=== PATIENT | female | born 1965 | race Caucasian/White ===

== ENCOUNTER 2017-09-30 12:24 | Emergency (ER) | payer MEDICAID ==
[2017-09-30 13:11] LABS: #Basophils 0.1 thou/uL (0.0-0.2); #Eosinphils 0.3 thou/uL (0.0-0.7); #Lymphocytes 1.7 thou/uL (1.20-3.40); #Monocytes 0.8 thou/uL (0.11-0.59); #Neutrophils 5.1 thou/uL (1.40-6.50); %Basophils 0.8 % (0.0-1.0); %Eosinophils 3.5 % (0.0-10.0); %Lymphocytes 21.5 % (21.0-51.0); %Monocytes 9.6 % (0.0-10.0); %Neutrophils 64.7 % (42.0-75.0); Hemoglobin 11.8 g/dL (12.0-16.0); Mean Corpuscular HGB CONC 31.8 g/dL (32.0-36.0); Mean Corpuscular Volume 84.9 fl (81.0-99.0); Mean Platelet Volume 7.5 fL (7.4-10.4); Platelet Count 239 thou/uL (130-400); RBC Distribution Width 15.9 % (11.5-14.5); Red Blood Cell (RBC) Count 4.37 mill/uL (4.20-5.40); White Blood Cell (WBC) Count 7.9 thou/uL (4.8-10.8)
[2017-09-30 13:39] LABS: CKMB 0.5 ng/mL (0-6.6); Troponin I Less than 0.010 ng/mL (< 0.028)
[2017-09-30 13:42] LABS: ALT (SGPT) 24 U/L (8-55); AST (SGOT) 24 U/L (5-34); Albumin 3.9 g/dL (3.5-5.0); Alkaline Phosphatase 98 U/L (40-150); Anion Gap 12 mmol/L (10-20); BUN (Urea Nitrogen) 18 mg/dL (9.8-20.1); Bilirubin, Total 0.4 mg/dL (0.2-1.2); CK (CPK) 39 U/L (29-168); Calc. Creatinine Clearance 0 mL/min (70-130); Calcium 9.7 mg/dL (7.8-10.44); Carbon Dioxide 23 mmol/L (22-29); Chloride 107 mmol/L (98-107); Estimated GFR-MDRD 85; Globulin 3.7 g/dL (2.4-3.5); Glucose 111 mg/dL (70-105); Potassium 4.3 mmol/L (3.5-5.1); Protein, Total 7.6 g/dL (6.0-8.3); Sodium 138 mmol/L (136-145)
[2017-09-30] MEDS ORDERED: Furosemide 20 MG/2 ML VIAL ONE (13:48)
--- NOTE | 2017-09-30 14:01 | RAD ---
ONE VIEW CHEST: HISTORY: Shortness of breath. Cough. COMPARISON: None. FINDINGS: Enlarged cardiac silhouette. The pulmonary vessels are upper limits of normal. Costophrenic angles are clear. No masses or consolidation. No pneumothorax or osseous abnormalities. IMPRESSION: Cardiomegaly. Mild pulmonary vascular prominence. Correlate for congestive heart failure. POS: [facility]
== END 2017-09-30 16:08 | disposition home or self-care (01) ==
LOC: ERS 12:24
DX: I11.0 Hypertensive heart disease with heart failure (principal); I50.9 Heart failure, unspecified; E78.5 Hyperlipidemia, unspecified; E66.9 Obesity, unspecified; F31.9 Bipolar disorder, unspecified; F41.9 Anxiety disorder, unspecified; F43.10 Post-traumatic stress disorder, unspecified; J45.909 Unspecified asthma, uncomplicated; Z79.899 Other long term (current) drug therapy
CPT/HCPCS: 36415; 71045; 80053; 82550; 82553; 84484; 85025; 93005; 96372; J1940

== ENCOUNTER 2017-10-30 12:31 | Observation (INO) | payer MEDICAID ==
[2017-10-30 13:28] LABS: #Eosinphils 0.2 thou/uL (0.0-0.7); #Lymphocytes 1.2 thou/uL (1.20-3.40); #Monocytes 0.8 thou/uL (0.11-0.59); #Neutrophils 5.3 thou/uL (1.40-6.50); %Basophils 0.2 % (0.0-1.0); %Eosinophils 3.1 % (0.0-10.0); %Lymphocytes 15.7 % (21.0-51.0); %Monocytes 10.4 % (0.0-10.0); %Neutrophils 70.7 % (42.0-75.0); Hemoglobin 12.2 g/dL (12.0-16.0); Mean Corpuscular HGB CONC 31.5 g/dL (32.0-36.0); Mean Corpuscular Hemoglobin 26.6 pg (27.0-31.0); Mean Corpuscular Volume 84.3 fL (78.0-98.0); Mean Platelet Volume 7.9 fL (7.4-10.4); Platelet Count 226 thou/uL (130-400); Red Blood Cell (RBC) Count 4.58 mill/uL (4.20-5.40); White Blood Cell (WBC) Count 7.5 thou/uL (4.8-10.8)
[2017-10-30 13:30] LABS: INR-International Normal Ratio 1.1; PTT 25.2 SEC (22.9-36.1); Prothrombin Time 13.8 SEC (12.0-14.7)
[2017-10-30 13:40] LABS: ALT (SGPT) 18 U/L (8-55); AST (SGOT) 20 U/L (5-34); Alkaline Phosphatase 104 U/L (40-150); Anion Gap 13 mmol/L (10-20); BUN (Urea Nitrogen) 12 mg/dL (9.8-20.1); Bilirubin, Total 0.5 mg/dL (0.2-1.2); CK (CPK) 33 U/L (29-168); Calc. Creatinine Clearance 0 mL/min (70-130); Calcium 9.8 mg/dL (7.8-10.44); Carbon Dioxide 25 mmol/L (22-29); Chloride 106 mmol/L (98-107); Estimated GFR-MDRD 85; Globulin 3.8 g/dL (2.4-3.5); Glucose 103 mg/dL (70-105); Potassium 3.6 mmol/L (3.5-5.1); Protein, Total 7.8 g/dL (6.0-8.3); Sodium 140 mmol/L (136-145)
[2017-10-30 13:42] LABS: CKMB 0.4 ng/mL (0-6.6); Troponin I Less than 0.010 ng/mL (< 0.028)
--- NOTE | 2017-10-30 13:53 | RAD ---
CHEST PA AND LATERAL: Date: 10/30/17 HISTORY: 52-year-old female with history of chest pain and shortness of breath. COMPARISON: 09/30/17. FINDINGS: Cardiomegaly with mild vascular congestion, without overt edema or pleural effusion. No confluent pne umonia. Minimal bilateral pleural thickening. IMPRESSION: Overall stable appearing mild cardiomegaly and vascular congestion without overt edema or pleural eff usion. POS: [facility]
[2017-10-30] MEDS ORDERED: Nitroglycerin 0.4 MG TAB (25 Tab Bottle) ONE (13:57)
[2017-10-30] MEDS ORDERED: hydrALAZINE 20 MG/ML VIAL ONE (15:30)
[2017-10-30] MEDS ORDERED: Nitroglycerin 0.4 MG TAB (25 Tab Bottle) SL PRN (15:38)
[2017-10-30] MEDS ORDERED: hydrALAZINE 20 MG/ML VIAL SLOW IVP PRN (15:38)
[2017-10-30] MEDS ORDERED: Milk Of Magnesia 30 ML UDCUP PO PRN (15:40)
[2017-10-30] MEDS ORDERED: Labetalol HCl 100 MG/20 ML VIAL SLOW IVP PRN (15:42)
[2017-10-30] MEDS ORDERED: Furosemide 40 MG/4 ML VIAL SLOW IVP SCH (16:00)
--- NOTE | 2017-10-30 16:13 | HP ---
PRIMARY CARE PHYSICIAN: None. PRESENTING COMPLAINT: Chest pain. HISTORY OF PRESENT ILLNESS: Ms. Rose Spencer is a 52-year-old female with a past medical history of CHF, hypertension, hyperlipidemia, and obesity, who presents to the emergency room with complaints of chest pain. She reports intermittent chest pain for the past week, described as pressure and sha rp pain that is retrosternal, 8/10, does not radiate, and does not have any clear aggravating or reli eving factors. Pain occurs at rest. She denies previous episodes in the past. She reports is not a ssociated with diaphoresis, nausea or vomiting, but reports some shortness of breath. There is no hi story of abdominal or urinary symptoms. Her last stress test she reports was several years ago and w as normal. She has never had a cardiac catheterization. At the emergency room, she was given 2 dose s of nitroglycerin, aspirin and one dose of IV hydralazine due to systolic blood pressure in the 200. PAST MEDICAL HISTORY: As in the HPI. PAST SURGICAL HISTORY: History of , BTL and sinus surgery. FAMILY HISTORY: Her mother had a myocardial infarction in her 50s and also had a CVA. SOCIAL HISTORY: She does not smoke cigarettes, drink alcohol or use illicit drugs. ALLERGIES: ALBUTEROL and, BIAXIN. HOME MEDICATIONS: Reviewed. PRIMARY CARE PHYSICIAN: None. REVIEW OF SYSTEMS: All systems reviewed were negative except as stated in HPI. Of note, patient reports she did not take her blood pressure medications today. PHYSICAL EXAMINATION: VITAL SIGNS: Blood pressure 200/100. Other vital signs within normal limits. GENERAL: Not in acute distress. The patient reports being chest pain free and lying comfortably in bed. HEENT: Normocephalic, atraumatic. Not pale, anicteric. Moist mucous membrane. PERRLA. NECK: Supple, full range of movement. No JVD. CARDIOVASCULAR: S1 and S2 only. Regular rate and rhythm. No murmurs, rubs or gallops. RESPIRATORY: Vesicular breath sounds bilaterally. No wheezes or rales. ABDOMEN: Obese, not tender, not distended. Bowel sounds normoactive. MUSCULOSKELETAL: 1+ bilateral lower extremity pitting edema. NEUROLOGIC: Alert and well oriented to time, place and person. No focal deficits. SKIN: Warm, dry, well-perfused. No rashes or lesions. LABORATORY DATA: CBC is within normal limits. CMP as well. Initial troponin was less than 0.010. INR 1.1. Chest x-ray showed no abnormalities acutely, but shows stable vascular congestion. EKG mouna ws no signs of acute ischemia. ASSESSMENT AND PLAN: 1. Hypertensive urgency. 2. Unstable angina. 3. Congestive heart failure with unknown ejection fraction. 4. Hyperlipidemia. 5. Morbid obesity. Patient has been admitted for unstable angina and hypertensive urgency. She rep orts not taken her blood pressure medication today and has not taken her diuretics for the past 3 day s. She recently moved to the [facility] and does not have a primary care physician or follow up with the pourer off. We will admit to the telemetry floor on observation, monitor her vital sig ns, give her IV hydralazine and labetalol p.r.n. for elevated blood pressure. Her chest pain has bee n relieved by nitroglycerin so far, but we will put an order for sublingual nitroglycerin p.r.n. as w ell as IV morphine p.r.n. for chest pain. She would likely require a stress test to completely rule out acute coronary syndrome, but due to her hypertensive urgency, this test will be held off for now. We will consult Cardiology since she definitely needs to follow up with the pourer off sooner rat her than later. We will consider an echocardiogram as well. Home medications will be restarted. We will also obtain a fasting lipid profile. Troponin will be trended as well. CODE STATUS: FULL CODE. Deep venous thrombosis prophylaxis with subcutaneous heparin.
[2017-10-30] MEDS ORDERED: Carvedilol 6.25 MG TAB PO SCH (16:15)
[2017-10-30] MEDS ORDERED: NIFEdipine XL 60 MG TAB PO SCH (16:15)
[2017-10-30 16:29] LABS: Troponin I Less than 0.010 ng/mL (< 0.028)
[2017-10-30 16:35] VITALS: BMI 71.0
[2017-10-30 19:40] LABS: Troponin I Less than 0.010 ng/mL (< 0.028)
[2017-10-30] MEDS: Docusate 100 MG CAP PO SCH (20:14)
[2017-10-30] MEDS ORDERED: Rivaroxaban 10 MG TAB PO SCH (21:45)
[2017-10-30] MEDS ORDERED: Aripiprazole 15 MG TAB PO SCH (21:45)
[2017-10-30] MEDS ORDERED: Montelukast Sodium 10 mg Tablet PO SCH (21:45)
[2017-10-30] MEDS ORDERED: OXcarbazepine 300 MG TAB PO SCH (23:45)
[2017-10-30] MEDS ORDERED: Loratadine 10 MG TAB PO SCH (23:45)
[2017-10-30] MEDS ORDERED: Gabapentin 400 MG CAP PO SCH (23:45)
[2017-10-30] MEDS ORDERED: Atorvastatin Calcium 40 MG TAB PO SCH (23:45)
[2017-10-31 04:58] LABS: #Eosinphils 0.3 thou/uL (0.0-0.7); #Lymphocytes 1.7 thou/uL (1.20-3.40); #Monocytes 0.8 thou/uL (0.11-0.59); #Neutrophils 5.4 thou/uL (1.40-6.50); %Basophils 0.2 % (0.0-1.0); %Eosinophils 3.4 % (0.0-10.0); %Lymphocytes 20.6 % (21.0-51.0); %Monocytes 9.9 % (0.0-10.0); %Neutrophils 65.9 % (42.0-75.0); Hemoglobin 11.1 g/dL (12.0-16.0); Mean Corpuscular HGB CONC 32.1 g/dL (32.0-36.0); Mean Corpuscular Hemoglobin 26.7 pg (27.0-31.0); Mean Corpuscular Volume 83.2 fL (78.0-98.0); Mean Platelet Volume 7.4 fL (7.4-10.4); Platelet Count 239 thou/uL (130-400); RBC Distribution Width 16.1 % (11.5-14.5); Red Blood Cell (RBC) Count 4.18 mill/uL (4.20-5.40); White Blood Cell (WBC) Count 8.2 thou/uL (4.8-10.8)
[2017-10-31 05:16] LABS: Anion Gap 11 mmol/L (10-20); BUN (Urea Nitrogen) 12 mg/dL (9.8-20.1); Calc. Creatinine Clearance 306 mL/min (70-130); Calcium 9.6 mg/dL (7.8-10.44); Carbon Dioxide 28 mmol/L (22-29); Cardiac Risk 3.6 (Less than 4.5); Chloride 105 mmol/L (98-107); Cholesterol 116 mg/dl (< 200 Desired); Estimated GFR-MDRD Greater than 90; Glucose 114 mg/dL (70-105); HDL Cholesterol 32 mg/dL (>60 Neg Risk); LDL Cholesterol, Calculated 67 mg/dL; Potassium 3.7 mmol/L (3.5-5.1); Sodium 140 mmol/L (136-145); Triglycerides 85 mg/dL (Less than 150)
[2017-10-31] MEDS ORDERED: Carvedilol 6.25 MG TAB PO SCH (08:00)
--- NOTE | 2017-10-31 08:04 | CON ---
DATE OF CONSULTATION: 10/30/2017 REASON FOR CONSULTATION: Chest pain in the setting of severe morbid obesity. HISTORY OF PRESENT ILLNESS: Ms. Spencer is a 52-year-old woman. She came "to get checked out." She s aid she has been having chest pain in the lower substernal area that is the area she pointed, it is l asted for a few seconds and then resolves. It does not radiate. It occurs at rest, but she is unabl e to really exert herself much due to her body size. The patient was given nitroglycerin, aspirin, a nd hydralazine as her blood pressure was high in the emergency room. PAST MEDICAL HISTORY: 1. Severe morbid obesity. 2. History of section. FAMILY HISTORY: Mother with myocardial infarction. SOCIAL HISTORY: No smoking. ALLERGIES: ALBUTEROL and BIAXIN. HOME MEDICATIONS: Reviewed. PRIMARY CARE PHYSICIAN: None. She said she is going to be getting one to set soon. REVIEW OF SYSTEMS: Constitutional: Gradual weight gain. Vision: No changes. Hearing: No changes . Pulmonary: No cough or wheezing. Gastrointestinal: No nausea, vomiting, diarrhea. Skin: No ra shes. Neurologic: No unilateral weakness or numbness. Psychiatric: No unusual depression or anxie ty. PHYSICAL EXAMINATION: GENERAL: An extremely obese patient, 5 foot 6 inches tall, 440 pounds. BMI is 71. HEENT: Eyes, sclerae nonicteric. Mouth mucous membranes moist. NECK: Supple. No lymphadenopathy. LUNGS: Clear. No wheezing, rales or rhonchi. CARDIAC: Normal S1, normal S2. There is no murmur, rub or gallop. ABDOMEN: Morbidly obese. EXTREMITIES: There is chronic lymphedema. I do not feel pedal pulses, but it is difficult to tell b ecause of her obesity. She does have radial pulses. Laboratory reveals negative cardiac enzymes. EKG did not show any acute changes. ASSESSMENT: 1. Severe morbid obesity with BMI is over 70, 5 foot, 6 inches tall, 440 pounds. 2. Chest pain, very difficult to tell if there is any cardiac component. Certainly, the morbid obes ity is a major risk factor. Discussed with the patient that unfortunately, her body size will prohibit stress testing. She weigh s too much for the nuclear medicine imaging protocol and she would be unable to do a treadmill. She is able to get around some degree with a walker, but otherwise is not active. We will do an echocard iogram and treat blood pressure also looking at the home medicines. She is on Xarelto, nifedipine, S ingulair, carvedilol. We will add Protonix if symptoms persist the only really way to adequately patrick luate the coronary arteries will be cardiac catheterization.
[2017-10-31] MEDS ORDERED: Enoxaparin Sodium 40 MG/0.4 ML SYRINGE SC SCH (09:00)
[2017-10-31] MEDS ORDERED: Aspirin 325 MG TAB PO SCH (09:00)
[2017-10-31] MEDS ORDERED: NIFEdipine XL 60 MG TAB PO SCH (09:00)
[2017-10-31] MEDS ORDERED: Furosemide 80 MG TAB PO SCH (09:00)
[2017-10-31] MEDS ORDERED: Gabapentin 400 MG CAP PO SCH ×2 (09:00→21:00)
[2017-10-31] MEDS ORDERED: OXcarbazepine 300 MG TAB PO SCH (09:00)
[2017-10-31] MEDS ORDERED: Aripiprazole 15 MG TAB PO SCH (09:00)
[2017-10-31] MEDS: Docusate 100 MG CAP PO SCH (09:34)
[2017-10-31] MEDS: Gabapentin 400 MG CAP PO SCH ×2 (09:35→17:19)
[2017-10-31 10:02] LABS: Hemoglobin 11.7 g/dL (12.0-16.0); Platelet Count 238 thou/uL (130-400)
[2017-10-31 12:31] VITALS: BP 157/82; TEMP 98.6
--- NOTE | 2017-10-31 14:10 | PRG ---
DATE OF SERVICE: 10/31/2017 SUBJECTIVE: Ms. Spencer is not having further chest pain. OBJECTIVE: VITAL SIGNS: Blood pressure 157/82, pulse 70. LUNGS: Clear. CARDIAC: Normal S1, S2. ABDOMEN: Obese, nontender. EXTREMITIES: Edema as before, mostly lymphedema. PERTINENT LABORATORY DATA: All the troponin levels were negative. EKG did not show ischemia. Adela sterol LDL 67. Echocardiogram showed normal left ventricular function, trace tricuspid insufficiency. Essentially n ormal echocardiogram. There is mild left atrial enlargement as would be expected with this degree of obesity. Unfortunately, due to the patient's weight, there is not a mechanism available here to do stress test ing and cardiac catheterization would not be indicated at this point with chest pain, which was somew hat atypical. Negative cardiac enzymes and normal wall motion and no EKG changes. At this time, the patient's pain is unlikely to be cardiac, but certainly we cannot tell her for sure it is not, recom mended very important for her to try to lose weight. She said she may be interested in bariatric lise chriss if she decides that she wishes to pursue bariatric surgery and the best option may be cardiac ca theterization to make sure she does not have coronary disease. It is very important for her to try to lose weight for her health. She has already had pulmonary emb olism, which is largely related to her obesity and venous insufficiency and venous congestion. I sera pect due to obesity, she also has severe hypertension, which is certainly worsened by this level of o besity, sleep apnea from the obesity and has some glucose intolerance. Long-term prognosis is poor u nless she loses substantial amount of weight.
[2017-10-31] MEDS ORDERED: Rivaroxaban 10 MG TAB PO SCH (17:00)
--- NOTE | 2017-10-31 18:45 | DIS ---
DATE OF ADMISSION: 10/30/2017 DATE OF DISCHARGE: 10/31/2017 HISTORY OF PRESENT ILLNESS/HOSPITAL COURSE: Ms. Rose Spencer is a 52-year-old female with a histo ry of congestive heart failure, hypertension, hyperlipidemia, and obesity, who presented to the emerg ency room with chest pain, which started at rest. She reports this has been intermittent for the pas t week, described as a pressure-like pain, which is at times retrosternal, intermittent and radiates does not radiate and does not have any clear aggravating or relieving factors. She denies previous e pisodes. She does not have any shortness of breath, diaphoresis, nausea or vomiting. No abnormal ur inary symptoms. She had a stress test done several years ago, which she reported that was normal and no previous cardiac catheterization. At the emergency room, she was given 2 doses of nitroglycerin, aspirin and one dose of IV hydralazine due to her systolic blood pressure being in the 200s. Physic al examination was only significant for morbid obesity. Her blood pressure was 200 about 100. Her l abs are unremarkable. Troponin was trended and negative. She had a chest x-ray done, which showed s table vascular congestion, diagnosis of hypertensive urgency, unstable angina and taken with known ej ection fraction was made and she was admitted for further workup. She had an echocardiogram done, wh ich showed an EF of 60% to 65%. She was also reviewed by Cardiology, who deemed the patient is stabl e for discharge. At the time of discharge, her blood pressure was under control and she was chest pa in free. She is to follow up with her primary care physician and pie filler on an outpatient basis . DISCHARGE MEDICATIONS: Pantoprazole 40 mg daily, Xarelto 20 mg daily, nifedipine 60 mg daily, docusa te 100 mg at bedtime, Singulair 100 mg daily, oxcarbazepine 600 mg twice daily, Flonase nasal spray 1 spray in each naris daily, cetirizine hydrochloride 10 mg daily, gabapentin 400 mg 3 times a day, fu rosemide 80 mg twice a day, carvedilol 12.5 mg twice a day, Abilify 15 mg daily, atorvastatin calcium 40 mg at bedtime. PHYSICAL EXAMINATION: She was seen and examined on day of discharge, VITAL SIGNS: Blood pressure 152/82, oxygen saturation 94% on room air, respiratory rate 24, pulse ra te 76, temperature 98.6 degrees Fahrenheit. GENERAL: Not in acute distress. She is lying comfortably in bed and chest pain free. HEENT: No JVD. Full range of movement. CARDIOVASCULAR: S1, S2 only. Regular rate and rhythm. No murmurs, rubs or gallops. RESPIRATORY: Vesicular breath sounds bilaterally. No wheezes, rubs or rhonchi. ABDOMEN: Soft, nontender, nondistended. Bowel sounds normoactive. No hepatosplenomegaly. NEUROLOGIC: Alert and well oriented. No focal deficits. MUSCULOSKELETAL: Minimal lower extremity pedal edema. SKIN: Warm, dry, well-perfused. No rashes or lesions. PSYCHIATRIC: Normal mood and affect. LABORATORY DATA: WBC 8.2, hemoglobin 11.7, platelet count 238. Sodium 140, potassium 3.7, chloride 105, carbon dioxide 28, anion gap 11, BUN 12, creatinine 0.67, glucose 114, calcium 9.6. Chest x-ray suggested HPI. EKG, no signs of acute ischemia. CONSULTATIONS: Cardiology. PROCEDURES: None. CONDITION AT DISCHARGE: Stable and improved. CARE GOALS: To follow up with primary care physician within 1 week of discharge. The patient encour aged to take her medications as prescribed. ACTIVITY: To resume as tolerated. DIET: Heart healthy, low sodium. Discharge time 65 minutes including chart review and documentation.
[2017-10-31] MEDS ORDERED: Atorvastatin Calcium 40 MG TAB PO SCH (21:00)
[2017-10-31] MEDS ORDERED: Montelukast Sodium 10 mg Tablet PO SCH (21:00)
[2017-10-31] MEDS ORDERED: Loratadine 10 MG TAB PO SCH (21:00)
--- NOTE | 2017-11-03 12:38 | EKG ---
Test Reason : Blood Pressure : / mmHG Vent. Rate : 080 BPM Atrial Rate : 080 BPM P-R Int : 162 ms QRS Dur : 100 ms QT Int : 364 ms P-R-T Axes : 026 -05 -38 degrees QTc Int : 419 ms Normal sinus rhythm Minimal voltage criteria for LVH, may be normal variant Nonspecific T wave abnormality Abnormal ECG Confirmed by MEKHI PANDYA M.D. ([id number]), editor magazine CRISSY NASCIMENTO ([id number]) on 11/03/2017 12:38:01 PM Referred By: Confirmed By:MEKHI PANDYA M.D.
== END 2017-10-31 16:35 | disposition home or self-care (01) ==
LOC: ERS 12:31 → 2SW 16:27
PROVIDERS: ADMIT Internal Medicine; ATTEND Internal Medicine
DX: I20.0 Unstable angina (principal); I16.0 Hypertensive urgency; I11.0 Hypertensive heart disease with heart failure; I50.9 Heart failure, unspecified; E78.5 Hyperlipidemia, unspecified; I87.2 Venous insufficiency (chronic) (peripheral); E66.01 Morbid (severe) obesity due to excess calories; Z68.45 Body mass index [BMI] 70 or greater, adult; Z86.711 Personal history of pulmonary embolism; Z88.1 Allergy status to other antibiotic agents; Z88.8 Allergy status to other drugs, medicaments and biological substances; Z79.01 Long term (current) use of anticoagulants; Z79.51 Long term (current) use of inhaled steroids; Z79.899 Other long term (current) drug therapy
CPT/HCPCS: 36415; 71046; 80048; 80053; 80061; 82550; 82553; 83880; 84484; 85025; 85610; 85730; 93005; 93306; 96374; 96375; A4216; G0378; J0360; J1940

== ENCOUNTER 2018-04-23 10:27 | Inpatient (IN) | payer MEDICAID, OTHER ==
[2018-04-23 12:00] LABS: #Eosinphils 0.4 thou/uL (0.0-0.7); #Lymphocytes 1.4 thou/uL (1.20-3.40); #Monocytes 0.8 thou/uL (0.11-0.59); %Basophils 0.6 % (0.0-1.0); %Eosinophils 6.7 % (0.0-10.0); %Lymphocytes 20.7 % (21.0-51.0); %Monocytes 11.6 % (0.0-10.0); %Neutrophils 60.3 % (42.0-75.0); ALT (SGPT) 27 U/L (8-55); AST (SGOT) 19 U/L (5-34); Albumin 3.7 g/dL (3.5-5.0); Alkaline Phosphatase 108 U/L (40-150); Anion Gap 11 mmol/L (10-20); BUN (Urea Nitrogen) 18 mg/dL (9.8-20.1); Bilirubin, Total 0.4 mg/dL (0.2-1.2); Calc. Creatinine Clearance 0 mL/min (70-130); Calcium 9.8 mg/dL (7.8-10.44); Carbon Dioxide 27 mmol/L (22-29); Chloride 101 mmol/L (98-107); Estimated GFR-MDRD 55; Globulin 4.9 g/dL (2.4-3.5); Glucose 112 mg/dL (70-105); Hemoglobin 10.9 g/dL (12.0-16.0); Mean Corpuscular HGB CONC 31.2 g/dL (32.0-36.0); Mean Corpuscular Hemoglobin 27.1 pg (27.0-31.0); Mean Corpuscular Volume 86.9 fL (78.0-98.0); Platelet Count 382 thou/uL (130-400); Potassium 4.4 mmol/L (3.5-5.1); Protein, Total 8.6 g/dL (6.0-8.3); RBC Distribution Width 14.3 % (11.5-14.5); Red Blood Cell (RBC) Count 4.01 mill/uL (4.20-5.40); White Blood Cell (WBC) Count 6.6 thou/uL (4.8-10.8)
[2018-04-23 12:16] LABS: Sodium 135 mmol/L (136-145)
--- NOTE | 2018-04-23 13:28 | ULT ---
VENOUS DOPPLER ULTRASOUND OF THE LEFT LOWER EXTREMITY: Date: 04/23/18 HISTORY: Left lower leg edema and redness. Left lower extremity cellulitis. TECHNIQUE: Curtis scale ultrasound with color flow and spectral Doppler imaging of the deep venous system of the l eft lower extremity was performed. FINDINGS: The exam was limited by body habitus, with inability to evaluate the left common femoral, deep femora l, femoral, posterior tibial, and greater saphenous veins. There is compression and flow in the left popliteal and a short segment of the femoral vein. IMPRESSION: Limited exam as above. POS: [facility]
[2018-04-23] MEDS ORDERED: Acetaminophen 650 MG Suppository PR PRN (15:34)
[2018-04-23] MEDS ORDERED: Bisacodyl 5 MG TAB PO PRN (15:34)
[2018-04-23 15:40] LABS: Lactic Acid 1.5 mmol/L (0.5-2.2)
[2018-04-23] MEDS ORDERED: Vancomycin HCl 1 GM in Premix Bag 1 BAG IVPB SCH (15:45)
--- NOTE | 2018-04-23 16:27 | HP ---
PRIMARY CARE PROVIDER: Dr. Willian Cuenca. CHIEF COMPLAINT: Left lower extremity pain. HISTORY OF PRESENT ILLNESS: Ms. Spencer is a pleasant 53-year-old lady who was seen at [facility] on April 23, 2018. She reports that she has had swelling of her left lower extremity for the last 3 weeks. She also reports that about a week ago, she started having rash over her left lower extremity. She denies having any fevers. She was seen by her primary care provider and started on Bactrim a week ago. She reports that her left lower extremity continues to be painful and continues to have rash. She therefore presented to the emergency room. She denies any nausea or vomiting. She denies any abdominal pain. REVIEW OF SYSTEMS: All other systems reviewed and found to be negative. PAST MEDICAL HISTORY: Deep venous thrombosis, diagnosed 2 years ago; pulmonary embolism, diagnosed 2 years ago, as well as earlier this year, the patient is on chronic anticoagulation; dyslipidemia; obesity; CHF; hypertension; asthma; and dyslipidemia. PAST SURGICAL HISTORY: Sinus surgery, section, tubal ligation, and bronchoscopy. PSYCHIATRIC HISTORY: Anxiety, bipolar disorder, depression, and PTSD. SOCIAL HISTORY: The patient denies tobacco use, alcohol use, or recreational drug use. She lives at home with her son. She uses a walker for ambulation. FAMILY HISTORY: Significant for deep venous thrombosis in her sister. ALLERGIES: ALBUTEROL AND BIAXIN. CURRENT MEDICATIONS: 1. Atorvastatin 40 mg at bedtime. 2. Coreg 12.5 mg 2 times a day. 3. Furosemide 80 mg 2 times a day. 4. Gabapentin 400 mg 3 times a day. 5. B complex one capsule daily. 6. Cetirizine 10 mg daily. 7. Iron 65 mg daily. 8. Nifedipine 60 mg daily. 9. Rivaroxaban 20 mg daily. PHYSICAL EXAMINATION: GENERAL: Ms. Spencer is awake and alert, not in acute distress. She is morbidly obese. VITAL SIGNS: Blood pressure is 164/88, pulse 79, respiratory rate 18, and oxygen saturation is 98% on room air. She is afebrile. EYES: No scleral icterus. No conjunctival pallor. ENT: Moist mucosal membranes. No oropharyngeal erythema or exudates. Neck: Supple, nontender. Trachea is midline. RESPIRATORY: Accessory muscles of breathing are not active. Chest wall movements are symmetric bilaterally. Lungs are clear to auscultation without wheeze, rhonchi, or crepitations. CARDIOVASCULAR: S1 and S2 are heard, regular. Peripheral pulses palpable. No carotid bruit. No pericardial rub. ABDOMEN: Soft, distended, and nontender. Bowel sounds are heard. NEUROLOGIC: Cranial nerves 2 through 12 are intact. MUSCULOSKELETAL: Power is 5/5 in all 4 extremities. SKIN: She has erythema over the lateral aspect of the left soto, along with increased temperature. She has multiple scabs. She also has bilateral lower extremity lymphedema. LYMPHATIC: No cervical lymphadenopathy. PSYCHIATRIC: Normal mood, normal affect, the patient is oriented to person, place, and time. LABS AND INVESTIGATIONS: Most of the labs and investigations were reviewed. She had left lower extremity Dopplers, which was an exam that was limited by body habitus. There is compression and flow in the left popliteal and short segment of the femoral vein. The left common femoral, deep femoral, femoral, posterior tibial, and greater saphenous veins could not be evaluated. She has normal white count, normocytic anemia with hemoglobin 10.9, and normal platelet count. Decreased sodium of 135, elevated serum total protein of 8.6, and elevated globulin of 4.9, otherwise unremarkable comprehensive metabolic profile and elevated lactic acid level of 2.4. ASSESSMENT AND PLAN: Ms. Spencer is a pleasant 53-year-old lady who was seen at [facility] on April 23, 2018. Her problem list includes: 1. Cellulitis: Ms. Spencer is presenting with cellulitis of the left lower extremity. She has received vancomycin in the emergency room. I will continue her on vancomycin and Zosyn and admitted to medical floor. Infectious Diseases Service will be consulted for opinion and help with further management. 2. History of venous thromboembolism: She will be continued on rivaroxaban. 3. Dyslipidemia: We will continue statin. 4. Hypertension: We will resume home medications, monitor vital signs, and titrate antihypertensives as needed. 5. Asthma: Appears to be stable. 6. Congestive heart failure: Appears to be stable. Many thanks for allowing me to participate in your patient's care. Please feel free to contact me with any questions or concerns. LEVEL OF RISK: Moderate. LEVEL OF COMPLEXITY: Moderate. Job ID: [id number]
[2018-04-23] MEDS: Piperacillin/Tazobactam 4.5 GM in Sodium Chloride 0.9% 100 ML IVPB SCH (17:57)
[2018-04-23 19:25] VITALS: BMI 68.5
[2018-04-23] MEDS: Montelukast Sodium 10 mg Tablet PO SCH (20:35)
[2018-04-23] MEDS: Gabapentin 400 MG CAP PO SCH (20:36)
[2018-04-23] MEDS: Furosemide 80 MG TAB PO SCH (20:36)
[2018-04-23] MEDS: Atorvastatin Calcium 40 MG TAB PO SCH (20:36)
[2018-04-23] MEDS: Carvedilol 25 MG TAB PO SCH (20:36)
[2018-04-23] MEDS: Loratadine 10 MG TAB PO SCH (20:37)
[2018-04-23] MEDS ORDERED: OXCARBAZEPINE 600 MG PO SCH (21:00)
[2018-04-23] MEDS ORDERED: hydrOXYzine 25 MG TAB PO PRN (21:19)
[2018-04-23] MEDS: hydrOXYzine Pamoate 25 mg Capsule PO PRN (22:02)
[2018-04-24] MEDS: Piperacillin/Tazobactam 4.5 GM in Sodium Chloride 0.9% 100 ML IVPB SCH ×3 (02:59→17:30)
[2018-04-24 06:26] LABS: #Eosinphils 0.4 thou/uL (0.0-0.7); #Lymphocytes 1.9 thou/uL (1.20-3.40); #Monocytes 0.7 thou/uL (0.11-0.59); #Neutrophils 3.4 thou/uL (1.40-6.50); %Basophils 0.3 % (0.0-1.0); %Eosinophils 6.1 % (0.0-10.0); %Lymphocytes 29.3 % (21.0-51.0); %Monocytes 11.2 % (0.0-10.0); %Neutrophils 53.1 % (42.0-75.0); Hemoglobin 9.6 g/dL (12.0-16.0); Mean Corpuscular HGB CONC 32.7 g/dL (32.0-36.0); Mean Corpuscular Hemoglobin 28.2 pg (27.0-31.0); Mean Corpuscular Volume 86.3 fL (78.0-98.0); Mean Platelet Volume 6.8 fL (7.4-10.4); Platelet Count 343 thou/uL (130-400); RBC Distribution Width 14.4 % (11.5-14.5); Red Blood Cell (RBC) Count 3.41 mill/uL (4.20-5.40); White Blood Cell (WBC) Count 6.4 thou/uL (4.8-10.8)
[2018-04-24 06:47] LABS: Anion Gap 11 mmol/L (10-20); BUN (Urea Nitrogen) 13 mg/dL (9.8-20.1); Calc. Creatinine Clearance 233 mL/min (70-130); Calcium 8.6 mg/dL (7.8-10.44); Carbon Dioxide 25 mmol/L (22-29); Chloride 103 mmol/L (98-107); Estimated GFR-MDRD 71; Glucose 94 mg/dL (70-105); Sodium 135 mmol/L (136-145)
[2018-04-24] MEDS: Lurasidone HCl 40 MG TABLET PO SCH (08:36)
[2018-04-24] MEDS: Gabapentin 400 MG CAP PO SCH ×2 (08:37→20:47)
[2018-04-24] MEDS: Furosemide 80 MG TAB PO SCH ×2 (08:37→20:49)
[2018-04-24] MEDS: Carvedilol 25 MG TAB PO SCH ×2 (08:37→20:47)
[2018-04-24] MEDS: NIFEdipine XL 60 MG TAB PO SCH (08:38)
[2018-04-24] MEDS: Rivaroxaban 10 MG TAB PO SCH (08:38)
[2018-04-24] MEDS ORDERED: Lurasidone 20 MG TABLET PO SCH (09:00)
--- NOTE | 2018-04-24 13:18 | PDOC.PN ---
- Subjective Encounter Start Date: 04/24/18 Encounter Start Time: 08:40 Pt seen for followup re: cellulitis. Denies chest pain or shortness of breath. - Objective MAR Reviewed: Yes Vital Signs & Weight: Vital Signs (12 hours) Temp Pulse Resp BP BP Pulse Ox 04/24/18 11:22 98.1 F 66 18 122/74 93 L 04/24/18 08:38 60 114/65 04/24/18 08:00 94 L 04/24/18 07:16 97.9 F 60 16 114/65 94 L 04/24/18 04:00 98.8 F 64 18 158/88 H 93 L Weight Weight 425 lb 0.819 oz I&O: 04/23/18 04/24/18 04/25/18 06:59 06:59 06:59 Intake Total 1420 Balance 1420 Result Diagrams: 04/24/18 06:06 04/24/18 06:06 Additional Labs: labs reviewed by me Phys Exam - Physical Examination Morbid obesity HEENT: moist MMs, sclera anicteric, oral pharynx no lesions, 2+ tonsils Neck: no nodes, no JVD, supple, full ROM Respiratory: no wheezing, no rales, no rhonchi, clear to auscultation bilateral Cardiovascular: RRR, no rub S1, S2 Gastrointestinal: soft, non-tender, positive bowel sounds distention Musculoskeletal: edema present lymphedema Neurological: moves all 4 limbs Psychiatric: normal affect, A&O x 3 Dx/Plan (1) Cellulitis Code(s): L03.90 - CELLULITIS, UNSPECIFIED Status: Acute Comment: continue IV antibiotics as below (2) H/O venous thrombosis and embolism Code(s): Z86.718 - PERSONAL HISTORY OF OTHER VENOUS THROMBOSIS AND EMBOLISM Status: Chronic Comment: continue rivaroxaban (3) Hyponatremia Code(s): E87.1 - HYPO-OSMOLALITY AND HYPONATREMIA Status: Chronic Comment: stable (4) Dyslipidemia Code(s): E78.5 - HYPERLIPIDEMIA, UNSPECIFIED Status: Chronic Comment: continue statin (5) Asthma Code(s): J45.909 - UNSPECIFIED ASTHMA, UNCOMPLICATED Status: Chronic Comment : stable (6) HTN (hypertension) Code(s): I10 - ESSENTIAL (PRIMARY) HYPERTENSION Status: Chronic Comment: controlled - Plan * . Review of Systems - Review of Systems Constitutional: negative: fever, chills, sweats, weakness, malaise Respiratory: negative: Cough, Shortness of Breath, SOB with Excertion, Pleuritic Pain, Wheezing Cardiovascular: edema. negative: chest pain, palpitations, orthopnea, paroxysmal nocturnal dyspnea, light headedness Gastrointestinal: negative: Nausea, Vomiting, Abdominal Pain, Diarrhea, Constipation, Melena, Hematochezia, Other Genitourinary: negative: Dysuria, Frequency, Incontinence, Hematuria, Retention Musculoskeletal: Leg Pain. negative: Neck Pain, Shoulder Pain, Arm Pain, Back Pain, Hand Pain, Foot Pain - Medications/Allergies Allergies/Adverse Reactions: Allergies Allergy/AdvReac Type Severity Reaction Status Date / Time albuterol Allergy Verified 10/30/17 18:13 clarithromycin [From Biaxin] Allergy Verified 10/30/17 18:13 Medications: Current Medications Acetaminophen (Tylenol) 650 mg PO Q4H PRN PRN Reason: Headache/Fever/Mild Pain (1-3) Acetaminophen (Tylenol) 650 mg AL Q4H PRN PRN Reason: Headache/Fever/Mild Pain (1-3) Atorvastatin Calcium (Lipitor) 40 mg PO HS [facility] Last Admin: 04/23/18 20:36 Dose: 40 mg Bisacodyl (Dulcolax) 10 mg PO DAILYPRN PRN PRN Reason: Constipation Carvedilol (Coreg) 12.5 mg PO BID [facility] Last Admin: 04/24/18 08:37 Dose: 12.5 mg Furosemide (Lasix) 80 mg PO BID [facility] Last Admin: 04/24/18 08:37 Dose: 80 mg Gabapentin (Neurontin) 400 mg PO QAM [facility] Last Admin: 04/24/18 08:37 Dose: 400 mg Gabapentin (Neurontin) 800 mg PO HS [facility] Last Admin: 04/23/18 20:36 Dose: 800 mg Hydroxyzine Pamoate (Vistaril) 50 mg PO HSPRN PRN PRN Reason: .SLEEP Last Admin: 04/23/18 22:02 Dose: 50 mg Piperacillin Sod/Tazobactam (Sod 4.5 gm/ Sodium Chloride) 100 mls @ 200 mls/hr IVPB 0200,1000,1800 [facility] Last Admin: 04/24/18 09:34 Dose: 100 mls Vancomycin HCl 2 gm/ Sodium (Chloride) 500 mls @ 250 mls/hr IVPB 1200,2359 [facility] Last Admin: 04/24/18 11:40 Dose: 500 mls Loratadine (Claritin) 10 mg PO HS [facility] Last Admin: 04/23/18 20:37 Dose: 10 mg Lurasidone HCl (Latuda) 20 mg PO DAILY [facility] Last Admin: 04/24/18 08:36 Dose: 20 mg Miscellaneous Medication (Pharmacy To Dose) 1 each IVPB ONE PRN PRN Reason: Pharmacy to dose Stop: 05/03/18 19:14 Montelukast Sodium (Singulair) 10 mg PO HS [facility] Last Admin: 04/23/18 20:35 Dose: 10 mg Nifedipine (Procardia Xl) 60 mg PO DAILY [facility] Last Admin: 04/24/18 08:38 Dose: 60 mg (Oxcarbazepine [ (Oxtellar Xr] 300 Mg)) 300 mg PO DAILY [facility] (Oxcarbazepine [ (Oxtellar Xr] 600 Mg)) 600 mg PO [facility] Rivaroxaban (Xarelto) 20 mg PO DAILY [facility] Last Admin: 04/24/18 08:38 Dose: 20 mg
[2018-04-24] MEDS: cefTRIAXone\\ROCEPHIN 2 GM in Sodium Chloride 0.9% 100 ML IVPB SCH (20:46)
[2018-04-24] MEDS: Montelukast Sodium 10 mg Tablet PO SCH (20:47)
[2018-04-24] MEDS: Atorvastatin Calcium 40 MG TAB PO SCH (20:47)
[2018-04-24] MEDS: Loratadine 10 MG TAB PO SCH (20:48)
[2018-04-24] MEDS: hydrOXYzine Pamoate 25 mg Capsule PO PRN (20:52)
[2018-04-25 00:01] LABS: Vancomycin, Trough 24.5 ug/mL
--- NOTE | 2018-04-25 00:44 | CON ---
DATE OF CONSULTATION: REASON FOR CONSULTATION: Cellulitis, left leg. HISTORY OF PRESENT ILLNESS: A 53-year-old has morbid obesity as well as prior episode of deep vein thrombosis and pulmonary embolism on chronic anticoagulation with chronic lymphedema in lower extremities, who developed left leg pain for the past few days. She has had episodes of cellulitis in the past. She was given Bactrim by her PCP about a week before admission and she continued to feel the pain and ended up admitted. Initial blood pressure 160/80, pulse 79, respirations 18, and O2 saturation 98%. The patient had some erythema in the left side with tenderness. She had marked lymphedema and other findings described below. Currently, Ms. Spencer is awake. She was sitting up in bed when I arrived and she was able to lay down. She still has marked tenderness in the left leg. She denies any headaches. No visual symptoms. Mild dyspnea. No chest pain. No abdominal pain. She is voiding spontaneously. No diarrhea or constipation. PAST MEDICAL HISTORY: Obesity, thromboembolism on chronic anticoagulation, asthma, probably has sleep apnea which is not listed, CHF most likely diastolic dysfunction. PAST SURGICAL HISTORY: Sinus surgery, , tubal ligation, and bronchoscopy. SOCIAL HISTORY: Never smoker. Lives at home with son. Uses a walker for mobility. She is able to go to grocery shopping and usually in the grocery, she uses one of the carts to transport through the aisles for purchase of products. ALLERGIES: ALBUTEROL AND BIAXIN. FAMILY HISTORY: Thrombosis as well. CURRENT MEDICATIONS: 1. Tylenol. 2. Lipitor. 3. Dulcolax. 4. Coreg. 5. Lasix. 6. Gabapentin. 7. Neurontin. 8. Vistaril. 9. Latuda. 10. Singulair. 11. Procardia. 12. Oxcarbazepine. 13. Zosyn. 14. Vancomycin. PHYSICAL EXAMINATION: VITAL SIGNS: T-max 98.9, blood pressure 120/70, pulse 68, respirations 18, and O2 saturation 94%. SKIN: Exam shows the area of severe lymphedema in both right and left lower extremities with dermatosclerosis. The patient has a faint pink erythema in the left leg. There is marked tenderness, though no areas of abscess formation or ulceration noted. She does have hyperkeratosis, though in the skin of the lower extremities. She has a peripheral IV access and is urinating in the toilet. No lymphadenopathy noted. She has quite prominent periorbital tissue almost like myxedematous looking in appearance. Pupils are equal. Oral cavity is not remarkable. NECK: Supple. LUNGS: Symmetric air entry with no crackles or wheezing. HEART: S1 and S2. Regular rate. Diminished heart sounds. ABDOMEN: With a very prominent panniculus of no tenderness on palpation of the abdomen. Difficult to examine the organs because of panniculus thickness. She has no evidence of bladder distention. Some evidence of osteoarthrosis in knees and ankles. Pulses are difficult to palpate, but cap refill is normal. She is able to move extremities with some limitations because of her weight and cellulitis. NEUROLOGIC: Nonfocal. Her cognitive functions seems to be intact. LABORATORY DATA: White cell count 6.6, hemoglobin 10.9, platelets 382 with 60% neutrophils. Sodium 135, creatinine 0.84, and glucose 112. Lactic acid 2.4. Transaminases normal. Alkaline phosphatase 108. Albumin 3.7. On microbiology, we have 2 sets of blood cultures, no growth at 48 hours. IMAGING STUDIES: There is a vascular ultrasound, which was of poor technical quality because of her body habitus. ASSESSMENT AND PLAN: 1. Morbid obesity. 2. Venous insufficiency with severe lymphedema. 3. Recurrent cellulitis of left leg with another episode. DISCUSSION: The most likely scenario is beta-hemolytic streptococcal cellulitis and would convert her to Rocephin for continuation of therapy, eventual transition to Keflex for discharge planning. I would also advise chronic suppressive therapy with penicillin V potassium 250 mg twice daily for 4 years. I am not sure she will be a candidate for compressive device, but at least she may benefit from visiting with the lymphedema nurse at the Rehab after discharge. Job ID: [id number]
[2018-04-25 08:55] LABS: #Eosinphils 0.4 thou/uL (0.0-0.7); #Lymphocytes 1.7 thou/uL (1.20-3.40); #Monocytes 0.6 thou/uL (0.11-0.59); #Neutrophils 4.2 thou/uL (1.40-6.50); %Basophils 0.6 % (0.0-1.0); %Lymphocytes 24.3 % (21.0-51.0); %Monocytes 9.2 % (0.0-10.0); %Neutrophils 59.9 % (42.0-75.0); Hemoglobin 11.1 g/dL (12.0-16.0); Mean Corpuscular HGB CONC 32.2 g/dL (32.0-36.0); Mean Corpuscular Hemoglobin 27.9 pg (27.0-31.0); Mean Corpuscular Volume 86.9 fL (78.0-98.0); Mean Platelet Volume 6.8 fL (7.4-10.4); Platelet Count 384 thou/uL (130-400); RBC Distribution Width 14.3 % (11.5-14.5); Red Blood Cell (RBC) Count 3.97 mill/uL (4.20-5.40)
[2018-04-25] MEDS: Lurasidone HCl 40 MG TABLET PO SCH (09:13)
[2018-04-25 09:15] LABS: Anion Gap 13 mmol/L (10-20); BUN (Urea Nitrogen) 12 mg/dL (9.8-20.1); Calc. Creatinine Clearance 217 mL/min (70-130); Calcium 9.5 mg/dL (7.8-10.44); Carbon Dioxide 27 mmol/L (22-29); Chloride 104 mmol/L (98-107); Estimated GFR-MDRD 65; Glucose 105 mg/dL (70-105); Potassium 4.4 mmol/L (3.5-5.1); Sodium 140 mmol/L (136-145)
[2018-04-25] MEDS: NIFEdipine XL 60 MG TAB PO SCH (09:15)
[2018-04-25] MEDS: Rivaroxaban 10 MG TAB PO SCH (09:16)
[2018-04-25] MEDS: Furosemide 80 MG TAB PO SCH ×2 (09:16→20:38)
[2018-04-25] MEDS: Gabapentin 400 MG CAP PO SCH ×2 (09:16→20:37)
[2018-04-25] MEDS: Carvedilol 25 MG TAB PO SCH ×2 (09:16→20:37)
--- NOTE | 2018-04-25 13:05 | PDOC.PN ---
- Subjective Encounter Start Date: 04/25/18 Encounter Start Time: 08:40 Pt seen for followup re: cellulitis. Feels better. - Objective MAR Reviewed: Yes Vital Signs & Weight: Vital Signs (12 hours) Temp Pulse Resp BP BP Pulse Ox 04/25/18 12:00 98.0 F 65 18 168/79 H 94 L 04/25/18 09:15 63 153/90 H 04/25/18 08:00 98.1 F 63 16 153/90 H 95 04/25/18 04:00 98.0 F 63 18 131/70 94 L Weight Weight 425 lb 0.819 oz I&O: 04/24/18 04/25/18 04/26/18 06:59 06:59 06:59 Intake Total 1420 2100 Balance 1420 2100 Result Diagrams: 04/25/18 08:24 04/25/18 08:24 Additional Labs: Labs reviewed by me Dx/Plan (1) Cellulitis Code(s): L03.90 - CELLULITIS, UNSPECIFIED Status: Acute Comment: continue IV ceftriaxone (2) H/O venous thrombosis and embolism Code(s): Z86.718 - PERSONAL HISTORY OF OTHER VENOUS THROMBOSIS AND EMBOLISM Status: Chronic Comment: on rivaroxaban (3) Hyponatremia Code(s): E87.1 - HYPO-OSMOLALITY AND HYPONATREMIA Status: Chronic Comment: stable (4) Dyslipidemia Code(s): E78.5 - HYPERLIPIDEMIA, UNSPECIFIED Status: Chronic Comment: on statin (5) Asthma Code(s): J45.909 - UNSPECIFIED ASTHMA, UNCOMPLICATED Status: Chronic Comment : stable (6) HTN (hypertension) Code(s): I10 - ESSENTIAL (PRIMARY) HYPERTENSION Status: Chronic Comment: controlled - Plan * . Review of Systems - Review of Systems Respiratory: negative: Cough, Shortness of Breath, SOB with Excertion, Pleuritic Pain, Wheezing Cardiovascular: negative: chest pain, palpitations, orthopnea, paroxysmal nocturnal dyspnea, edema, light headedness Skin: Rash - Medications/Allergies Allergies/Adverse Reactions: Allergies Allergy/AdvReac Type Severity Reaction Status Date / Time albuterol Allergy Verified 10/30/17 18:13 clarithromycin [From Biaxin] Allergy Verified 10/30/17 18:13 Medications: Current Medications Acetaminophen (Tylenol) 650 mg PO Q4H PRN PRN Reason: Headache/Fever/Mild Pain (1-3) Acetaminophen (Tylenol) 650 mg [place] Q4H PRN PRN Reason: Headache/Fever/Mild Pain (1-3) Atorvastatin Calcium (Lipitor) 40 mg PO HS [facility] Last Admin: 04/24/18 20:47 Dose: 40 mg Bisacodyl (Dulcolax) 10 mg PO DAILYPRN PRN PRN Reason: Constipation Carvedilol (Coreg) 12.5 mg PO BID [facility] Last Admin: 04/25/18 09:16 Dose: 12.5 mg Furosemide (Lasix) 80 mg PO BID [facility] Last Admin: 04/25/18 09:16 Dose: 80 mg Gabapentin (Neurontin) 400 mg PO QAM [facility] Last Admin: 04/25/18 09:16 Dose: 400 mg Gabapentin (Neurontin) 800 mg PO HS [facility] Last Admin: 04/24/18 20:47 Dose: 800 mg Hydroxyzine Pamoate (Vistaril) 50 mg PO HSPRN PRN PRN Reason: .SLEEP Last Admin: 04/24/18 20:52 Dose: 50 mg Ceftriaxone Sodium 2 gm/ (Sodium Chloride) 100 mls @ 200 mls/hr IVPB Q24HR [facility] Last Admin: 04/24/18 20:46 Dose: 100 mls Loratadine (Claritin) 10 mg PO HS [facility] Last Admin: 04/24/18 20:48 Dose: 10 mg Lurasidone HCl (Latuda) 20 mg PO DAILY [facility] Last Admin: 04/25/18 09:13 Dose: 20 mg Montelukast Sodium (Singulair) 10 mg PO HS [facility] Last Admin: 04/24/18 20:47 Dose: 10 mg Nifedipine (Procardia Xl) 60 mg PO DAILY [facility] Last Admin: 04/25/18 09:15 Dose: 60 mg (Oxcarbazepine [ (Oxtellar Xr] 300 Mg)) 300 mg PO DAILY [facility] (Oxcarbazepine [ (Oxtellar Xr] 600 Mg)) 600 mg PO HS [facility] Rivaroxaban (Xarelto) 20 mg PO DAILY [facility] Last Admin: 04/25/18 09:16 Dose: 20 mg
[2018-04-25] MEDS: Loratadine 10 MG TAB PO SCH (20:37)
[2018-04-25] MEDS: cefTRIAXone\\ROCEPHIN 2 GM in Sodium Chloride 0.9% 100 ML IVPB SCH (20:37)
[2018-04-25] MEDS: Atorvastatin Calcium 40 MG TAB PO SCH (20:37)
[2018-04-25] MEDS: hydrOXYzine Pamoate 25 mg Capsule PO PRN (20:38)
[2018-04-25] MEDS: Montelukast Sodium 10 mg Tablet PO SCH (20:38)
[2018-04-26 07:23] LABS: #Eosinphils 0.4 thou/uL (0.0-0.7); #Lymphocytes 2.2 thou/uL (1.20-3.40); #Monocytes 0.7 thou/uL (0.11-0.59); #Neutrophils 4.8 thou/uL (1.40-6.50); %Basophils 0.5 % (0.0-1.0); %Eosinophils 4.7 % (0.0-10.0); %Lymphocytes 26.5 % (21.0-51.0); %Monocytes 8.6 % (0.0-10.0); %Neutrophils 59.6 % (42.0-75.0); Hemoglobin 10.8 g/dL (12.0-16.0); Mean Corpuscular HGB CONC 31.5 g/dL (32.0-36.0); Mean Corpuscular Hemoglobin 27.1 pg (27.0-31.0); Platelet Count 400 thou/uL (130-400); RBC Distribution Width 14.3 % (11.5-14.5); White Blood Cell (WBC) Count 8.1 thou/uL (4.8-10.8)
[2018-04-26 07:37] LABS: Anion Gap 14 mmol/L (10-20); BUN (Urea Nitrogen) 13 mg/dL (9.8-20.1); Calc. Creatinine Clearance 242 mL/min (70-130); Calcium 9.3 mg/dL (7.8-10.44); Carbon Dioxide 27 mmol/L (22-29); Chloride 102 mmol/L (98-107); Estimated GFR-MDRD 74; Glucose 104 mg/dL (70-105); Potassium 3.9 mmol/L (3.5-5.1); Sodium 139 mmol/L (136-145)
[2018-04-26] MEDS: Lurasidone HCl 40 MG TABLET PO SCH (08:43)
[2018-04-26] MEDS: Acetaminophen 325 MG TAB PO PRN ×2 (08:43→20:40)
[2018-04-26] MEDS: Rivaroxaban 10 MG TAB PO SCH (08:45)
[2018-04-26] MEDS: Furosemide 80 MG TAB PO SCH ×2 (08:45→20:33)
[2018-04-26] MEDS: Gabapentin 400 MG CAP PO SCH ×2 (08:45→20:34)
[2018-04-26] MEDS: Carvedilol 25 MG TAB PO SCH ×2 (08:45→20:33)
[2018-04-26] MEDS: NIFEdipine XL 60 MG TAB PO SCH (08:46)
--- NOTE | 2018-04-26 12:37 | PDOC.PN ---
- Subjective Encounter Start Date: 04/26/18 Encounter Start Time: 07:40 Pt seen for followup re: cellulitis. c/o pain over left leg. - Objective MAR Reviewed: Yes Vital Signs & Weight: Vital Signs (12 hours) Temp Pulse Resp BP BP Pulse Ox 04/26/18 08:46 61 118/69 04/26/18 07:49 97.8 F 61 18 118/66 95 04/26/18 04:00 98.8 F 91 18 118/67 94 L 04/26/18 02:37 79 16 Weight Weight 425 lb 0.819 oz I&O: 04/25/18 04/26/18 04/27/18 06:59 06:59 06:59 Intake Total 2100 910 Balance 2100 910 Result Diagrams: 04/26/18 04:48 04/26/18 04:47 Additional Labs: Labs reviewed by me Phys Exam - Physical Examination Morbid obesity HEENT: moist MMs Neck: supple Respiratory: clear to auscultation bilateral Cardiovascular: RRR Gastrointestinal: soft Neurological: moves all 4 limbs Psychiatric: normal affect Dx/Plan (1) Cellulitis Code(s): L03.90 - CELLULITIS, UNSPECIFIED Status: Acute Comment: continue IV ceftriaxone, transition to Keflex over the weekend. Pt will need chronic suppressive therapy. (2) H/O venous thrombosis and embolism Code(s): Z86.718 - PERSONAL HISTORY OF OTHER VENOUS THROMBOSIS AND EMBOLISM Status: Chronic Comment: will continue rivaroxaban (3) Dyslipidemia Code(s): E78.5 - HYPERLIPIDEMIA, UNSPECIFIED Status: Chronic Comment: will continue statin (4) Asthma Code(s): J45.909 - UNSPECIFIED ASTHMA, UNCOMPLICATED Status: Chronic Comment : stable (5) HTN (hypertension) Code(s): I10 - ESSENTIAL (PRIMARY) HYPERTENSION Status: Chronic Comment: controlled (6) Hyponatremia Code(s): E87.1 - HYPO-OSMOLALITY AND HYPONATREMIA Status: Resolved - Plan * . Review of Systems - Review of Systems Cardiovascular: negative: chest pain, palpitations, orthopnea, paroxysmal nocturnal dyspnea, edema, light headedness Gastrointestinal: negative: Nausea, Vomiting, Abdominal Pain, Diarrhea, Constipation, Melena, Hematochezia Musculoskeletal: Leg Pain - Medications/Allergies Allergies/Adverse Reactions: Allergies Allergy/AdvReac Type Severity Reaction Status Date / Time albuterol Allergy Verified 10/30/17 18:13 clarithromycin [From Biaxin] Allergy Verified 10/30/17 18:13 Medications: Current Medications Acetaminophen (Tylenol) 650 mg PO Q4H PRN PRN Reason: Headache/Fever/Mild Pain (1-3) Last Admin: 04/26/18 08:43 Dose: 650 mg Acetaminophen (Tylenol) 650 mg [place] Q4H PRN PRN Reason: Headache/Fever/Mild Pain (1-3) Atorvastatin Calcium (Lipitor) 40 mg PO HS [facility] Last Admin: 04/25/18 20:37 Dose: 40 mg Bisacodyl (Dulcolax) 10 mg PO DAILYPRN PRN PRN Reason: Constipation Carvedilol (Coreg) 12.5 mg PO BID [facility] Last Admin: 04/26/18 08:45 Dose: 12.5 mg Cyanocobalamin (Vitamin B-12) 1,000 mcg PO DAILY [facility] Furosemide (Lasix) 80 mg PO BID [facility] Last Admin: 04/26/18 08:45 Dose: 80 mg Gabapentin (Neurontin) 400 mg PO QAM [facility] Last Admin: 04/26/18 08:45 Dose: 400 mg Gabapentin (Neurontin) 800 mg PO HS [facility] Last Admin: 04/25/18 20:37 Dose: 800 mg Hydroxyzine Pamoate (Vistaril) 50 mg PO HSPRN PRN PRN Reason: .SLEEP Last Admin: 04/25/18 20:38 Dose: 50 mg Ceftriaxone Sodium 2 gm/ (Sodium Chloride) 100 mls @ 200 mls/hr IVPB Q24HR [facility] Last Admin: 04/25/18 20:37 Dose: 100 mls Loratadine (Claritin) 10 mg PO HS [facility] Last Admin: 04/25/18 20:37 Dose: 10 mg Lurasidone HCl (Latuda) 20 mg PO DAILY [facility] Last Admin: 04/26/18 08:43 Dose: 20 mg Montelukast Sodium (Singulair) 10 mg PO HS [facility] Last Admin: 04/25/18 20:38 Dose: 10 mg Nifedipine (Procardia Xl) 60 mg PO DAILY [facility] Last Admin: 04/26/18 08:46 Dose: 60 mg (Oxcarbazepine [ (Oxtellar Xr] 300 Mg)) 300 mg PO DAILY [facility] (Oxcarbazepine [ (Oxtellar Xr] 600 Mg)) 600 mg PO HS [facility] Non-Formulary Medication (Ferrous Sulfate [Iron]) 325 mg PO BID [facility] Rivaroxaban (Xarelto) 20 mg PO DAILY [facility] Last Admin: 04/26/18 08:45 Dose: 20 mg
[2018-04-26] MEDS: Atorvastatin Calcium 40 MG TAB PO SCH (20:32)
[2018-04-26] MEDS: cefTRIAXone\\ROCEPHIN 2 GM in Sodium Chloride 0.9% 100 ML IVPB SCH (20:32)
[2018-04-26] MEDS: Ferrous Sulfate 325 MG TAB PO SCH (20:32)
[2018-04-26] MEDS: Montelukast Sodium 10 mg Tablet PO SCH (20:33)
[2018-04-26] MEDS: Loratadine 10 MG TAB PO SCH (20:33)
[2018-04-26] MEDS: hydrOXYzine Pamoate 25 mg Capsule PO PRN (20:40)
[2018-04-27] MEDS: Ferrous Sulfate 325 MG TAB PO SCH (08:15)
[2018-04-27] MEDS: Gabapentin 400 MG CAP PO SCH (08:15)
[2018-04-27] MEDS: NIFEdipine XL 60 MG TAB PO SCH (08:15)
[2018-04-27] MEDS: Carvedilol 25 MG TAB PO SCH (08:15)
[2018-04-27] MEDS: Rivaroxaban 10 MG TAB PO SCH (08:17)
[2018-04-27] MEDS: Furosemide 80 MG TAB PO SCH (08:17)
[2018-04-27] MEDS: Lurasidone HCl 40 MG TABLET PO SCH (08:17)
[2018-04-27] MEDS: Acetaminophen 325 MG TAB PO PRN (08:24)
[2018-04-27] MEDS ORDERED: Cyanocobalamin (Vitamin B-12) 1,000 MCG TAB PO SCH (09:00)
[2018-04-27] MEDS ORDERED: Saccharomyces boulardii 250 MG CAP PO SCH (09:00)
[2018-04-27] MEDS ORDERED: OXcarbazepine 300 MG TAB PO SCH ×2 (11:00→21:00)
--- NOTE | 2018-04-27 11:15 | PDOC.EVN ---
Event Note - Event Note Event Note: DC SUMMARY DICTATED #[id number]
[2018-04-27] MEDS: OXCARBAZEPINE 300 MG PO SCH (11:31)
[2018-04-27 11:42] VITALS: BP 120/73; TEMP 97.8
--- NOTE | 2018-04-28 03:50 | DIS ---
DATE OF ADMISSION: 04/23/2018 DATE OF DISCHARGE: 04/27/2018 ADMITTING DIAGNOSES: 1. Left lower extremity pain as well as history of deep venous thrombosis and history of pulmonary embolism. 2. History of congestive heart failure. 3. History of dyslipidemia. 4. History of morbid obesity. 5. History of hypertension. 6. History of asthma. 7. History of anxiety. DISCHARGE DIAGNOSES: 1. Left lower extremity pain, secondary to cellulitis. 2. History of deep venous thrombosis. 3. History of pulmonary embolism. 4. History of dyslipidemia. 5. History of obesity. 6. History of congestive heart failure. 7. History of hypertension. 8. History of asthma. HOSPITAL COURSE: This is a 53-year-old female who had been presenting to the hospital complaining of left lower extremity pain for the past 3 weeks. The patient was admitted to the Internal Medicine Team and also seen by Infectious Disease Team. The patient was monitored for 4 days during her stay here, had blood cultures done, which were negative, possibility of beta-hemolytic cellulitis was present. The patient was started on IV antibiotics. After 3 to 4 days of negative cultures, afebrility as well as normal white blood cell count, it was decided that the patient was stable for discharge, cleared from Internal Medicine as well as Infectious Disease perspective. The patient was given Keflex to be taken for 7 days as well as given penicillin V potassium 250 mg to be taken twice a day. The patient was given extended length of supply, advised to follow up with her PCP as well as her Infectious Disease doctor in 1 to 2 weeks for determination of duration of her antibiotic therapy with penicillin. The patient was also advised to follow up with Lymphedema Clinic to help with her lymphatic drainage and lymphedema that she has in her bilateral lower extremity. The patient was also heavily advised to pursue dietary change as well as weight loss. The patient's BMI was 68, advised to lose at least 200 pounds, otherwise her recovery progress period would be delayed potentially even impossible given the significant swelling that she has along with hypertrophic skin. CONDITION: Stable. DIET: Low-fat, low-calorie, high-fiber weight loss diet. MEDICATIONS: See MAR. FOLLOWUP: Follow up with PCP and ID within 1 to 2 weeks and Lymphedema Clinic within 1 week. ACTIVITY: As tolerated with assistance as needed. DISPOSITION: Home. Case and plan discussed with the patient at length. She understood and agreed with this plan. Job ID: [id number]
[2018-04-28] MEDS ORDERED: OXcarbazepine 300 MG TAB PO SCH (09:00)
== END 2018-04-27 15:03 | disposition home or self-care (01) | DRG 603 ==
LOC: ERS 10:27 → T4-A 16:57
PROVIDERS: ADMIT Internal Medicine; ATTEND Internal Medicine
DX: L03.116 Cellulitis of left lower limb (principal); Z68.44 Body mass index [BMI] 60.0-69.9, adult; E87.1 Hypo-osmolality and hyponatremia; I50.32 Chronic diastolic (congestive) heart failure; E66.01 Morbid (severe) obesity due to excess calories; Z86.718 Personal history of other venous thrombosis and embolism; Z86.711 Personal history of pulmonary embolism; Z79.01 Long term (current) use of anticoagulants; E78.5 Hyperlipidemia, unspecified; J45.909 Unspecified asthma, uncomplicated; F31.9 Bipolar disorder, unspecified; F41.9 Anxiety disorder, unspecified; F43.10 Post-traumatic stress disorder, unspecified; Z88.8 Allergy status to other drugs, medicaments and biological substances; Z79.899 Other long term (current) drug therapy; I11.0 Hypertensive heart disease with heart failure
CPT/HCPCS: 36415; 80048; 80053; 80202; 83605; 85025; 87040; 94660; 96365; 96366; J0696; J2543; J3370; J7050; Q0177

== ENCOUNTER 2018-05-30 20:18 | Emergency (ER) | payer OTHER ==
[~2018-05-30 20:18] MED LIST: ISOVUE-370 76%-LOCM 1 ML ONE
[2018-05-30] MEDS ORDERED: Morphine 4 MG/ML VIAL ONE (21:15)
[2018-05-30 21:21] LABS: #Eosinphils 0.6 thou/uL (0.0-0.7); #Lymphocytes 2.2 thou/uL (1.20-3.40); #Neutrophils 5.9 thou/uL (1.40-6.50); %Basophils 0.5 % (0.0-1.0); %Eosinophils 6.1 % (0.0-10.0); %Lymphocytes 22.9 % (21.0-51.0); %Neutrophils 60.6 % (42.0-75.0); Hemoglobin 12.3 g/dL (12.0-16.0); Mean Corpuscular HGB CONC 31.5 g/dL (32.0-36.0); Mean Corpuscular Hemoglobin 27.6 pg (27.0-31.0); Mean Corpuscular Volume 87.6 fL (78.0-98.0); Mean Platelet Volume 7.5 fL (7.4-10.4); Platelet Count 337 thou/uL (130-400); RBC Distribution Width 14.8 % (11.5-14.5); Red Blood Cell (RBC) Count 4.44 mill/uL (4.20-5.40); White Blood Cell (WBC) Count 9.7 thou/uL (4.8-10.8)
[2018-05-30 21:45] LABS: ALT (SGPT) 29 U/L (8-55); AST (SGOT) 31 U/L (5-34); Albumin 3.8 g/dL (3.5-5.0); Alkaline Phosphatase 133 U/L (40-150); Anion Gap 13 mmol/L (10-20); BUN (Urea Nitrogen) 14 mg/dL (9.8-20.1); Bilirubin, Total 0.4 mg/dL (0.2-1.2); Calc. Creatinine Clearance 0 mL/min (70-130); Calcium 9.7 mg/dL (7.8-10.44); Carbon Dioxide 29 mmol/L (22-29); Chloride 101 mmol/L (98-107); Estimated GFR-MDRD 73; Globulin 5.2 g/dL (2.4-3.5); Glucose 75 mg/dL (70-105); Lipase 18 U/L (8-78); Magnesium 3.6 mg/dL (1.6-2.6); Potassium 4.3 mmol/L (3.5-5.1); Sodium 139 mmol/L (136-145)
--- NOTE | 2018-05-30 22:30 | ULT ---
RIGHT UPPER QUADRANT ULTRASOUND: 05/30/18 COMPARISON: None. HISTORY: Right upper quadrant pain. TECHNIQUE: Multiplanar guerrero scale sonographic imaging right upper quadrant obtained. FINDINGS: The liver appears enlarged measuring 25.2 cm in greatest dimension. Hepatic parenchyma is heterogeneo us and echogenic suggesting steatosis. This limits assessment for focal liver lesion. The retort setter reports a negative Arrieta's. No gallbladder wall thickening. Multiple small shadowing stones are see n within the gallbladder lumen. The common bile duct measures 3-4 mm, within normal limits. The right kidney measures 12.7 cm in craniocaudal dimension and demonstrates no evidence for stone, hydronephr osis, or mass lesion. IMPRESSION: Cholelithiasis with no sonographic evidence of cholecystitis or biliary dilatation. POS: [facility]
[2018-05-30 23:49] LABS: Bilirubin Negative (Negative); Blood, Urine Negative (Negative); Clarity CLEAR (Clear); Glucose, Urine (Dipstick) Negative (Negative); Leukocyte Negative (Negative); Nitrite Negative (Negative); Protein, Urine (Dipstick) Negative (Neg-Trace); Urobilinogen 0.2 mg/dL (0.2-1.0)
--- NOTE | 2018-05-30 23:57 | CT ---
CT ANGIOGRAM OF THE CHEST: 05/30/18 COMPARISON: None. HISTORY: Palpitations, chest pain and shortness of breath. TECHNIQUE: Axial CT imaging at 2.5 mm intervals through the chest with IV contrast using a CT angiogram protocol . FINDINGS: Timing of the contrast bolus is suboptimal with respect to opacification of the pulmonary arterial va sculature, likely to a degree on the basis of body habitus. This limits assessment of the distal pulm onary arterial vasculature. This examination demonstrates no evidence for a central pulmonary arteria l embolism. There is no pleural, pericardial, or mediastinal fluid. No lymphadenopathy is evident within the chest. There is no pneumothorax noted on either side. The jeanette ng parenchyma and osseous structures demonstrate no acute findings. IMPRESSION: No evidence for central pulmonary arterial embolism. POS: [facility]
== END 2018-05-31 00:37 | disposition home or self-care (01) ==
LOC: ERS 20:18
DX: K80.20 Calculus of gallbladder without cholecystitis without obstruction (principal); J45.909 Unspecified asthma, uncomplicated; E78.5 Hyperlipidemia, unspecified; E66.9 Obesity, unspecified; I11.0 Hypertensive heart disease with heart failure; I50.9 Heart failure, unspecified; F41.9 Anxiety disorder, unspecified; F31.9 Bipolar disorder, unspecified; F43.10 Post-traumatic stress disorder, unspecified; Z79.899 Other long term (current) drug therapy; Z79.01 Long term (current) use of anticoagulants
CPT/HCPCS: 71275; 76705; 80053; 81003; 83690; 83735; 84484; 85025; 85379; 93005; 94760; 96374; J2270; Q9966

== ENCOUNTER 2018-12-11 14:11 | Inpatient (IN) | payer OTHER ==
[2018-12-11 14:42] LABS: Hemoglobin 13.3 g/dL (12.0-16.0); Mean Corpuscular HGB CONC 33.3 g/dL (32.0-36.0); Mean Corpuscular Hemoglobin 27.6 pg (27.0-31.0); Mean Platelet Volume 8.2 fL (7.4-10.4); Platelet Count 179 thou/uL (130-400); RBC Distribution Width 14.2 % (11.5-14.5); Red Blood Cell (RBC) Count 4.83 mill/uL (4.20-5.40); White Blood Cell (WBC) Count 18.4 thou/uL (4.8-10.8)
[2018-12-11 14:47] LABS: Base Excess-Venous -0.1 mmol/L (-2.0 to 3.0); Bicarbonate (HCO3v) 19.4 mmol/L (22.0-28.0); CO2 Tension (PvCO2) 21.1 mmHg (40.0-50.0); Calcium, Ionized 0.97 mmol/L (See Comments:); Chloride 107 mmol/L (98-107); Hemoglobin - Calc 15.9 g/dL (12.0-16.0); Potassium 4.5 mmol/L (3.5-5.1); Sodium 138 mmol/L (138-145); T. Carbon Dioxide 20.1 mmol/L (22.0-28.0); vO2 Saturation-calc 99.2 % (60.0-85.0)
[2018-12-11] MEDS ORDERED: Piperacillin/Tazobactam 4.5 GM VIAL ONE (14:59)
[2018-12-11] MEDS ORDERED: Sodium Chloride 0.9% 100 ML ONE (15:00)
[2018-12-11 15:02] LABS: ALT (SGPT) 28 U/L (8-55); AST (SGOT) 30 U/L (5-34); Albumin 3.7 g/dL (3.5-5.0); Alkaline Phosphatase 102 U/L (40-150); Anion Gap 18 mmol/L (10-20); BUN (Urea Nitrogen) 22 mg/dL (9.8-20.1); Bilirubin, Total 1.7 mg/dL (0.2-1.2); Calc. Creatinine Clearance 0 mL/min (70-130); Calcium 9.1 mg/dL (7.8-10.44); Carbon Dioxide 19 mmol/L (22-29); Chloride 102 mmol/L (98-107); Estimated GFR-MDRD 56; Globulin 3.8 g/dL (2.4-3.5); Glucose 130 mg/dL (70-105); Potassium 4.1 mmol/L (3.5-5.1); Protein, Total 7.5 g/dL (6.0-8.3); Sodium 135 mmol/L (136-145)
[2018-12-11 15:05] LABS: Band 11 % (5-11); Lymphocytes 2 % (21-51); MDiff Complete? YES; Monocytes 1 % (0-10); Neutrophil 86 % (42-75); Platelet Morphology Comment Appears Adequate
--- NOTE | 2018-12-11 15:26 | RAD ---
XR Chest 1 View Portable HISTORY: Sepsis, dyspnea COMPARISON: 09/30/2017 FINDINGS: The heart size is enlarged. The lungs are well expanded without lobar consolidation, pneumo thoraces or pleural effusions. No kofi pulmonary edema seen.
[2018-12-11] MEDS ORDERED: Ondansetron PF 4 MG/2 ML Vial ONE (16:13)
[2018-12-11] MEDS ORDERED: Morphine 4 MG/ML VIAL ONE (16:13)
[2018-12-11 17:33] LABS: Bilirubin Negative (Negative); Blood, Urine Trace (Negative); Clarity Clear (Clear); Glucose, Urine (Dipstick) Normal (Negative); Leukocyte Negative Leu/uL (Negative); Nitrite Negative (Negative); Protein, Urine (Dipstick) 100 mg/dL (Neg-Trace); RBC/HPF 0-3 HPF (0-3); Squamous Epithelial 0-3 HPF (0-3); Urobilinogen Normal mg/dL (Less than 2); WBC/HPF 0-3 HPF (0-3)
[2018-12-11 17:41] LABS: Bacteria/HPF 1+ HPF (None Seen)
--- NOTE | 2018-12-11 18:01 | ULT ---
VENOUS DOPPLER ULTRASOUND OF THE RIGHT LOWER EXTREMITY: Date: 12/11/18 HISTORY: Fever. Right lower extremity pain. TECHNIQUE: Curtis scale ultrasound with color flow and spectral Doppler imaging of the deep venous system of the r ight lower extremity is performed. FINDINGS: Exam is limited due to patient body habitus. The right common femoral vein and the greater saphenous vein are not visualized. There is good flow, compression, and augmentation noted in the femoral, deep femoral, popliteal, and posterior tibial veins. IMPRESSION: No evidence of deep venous thrombosis in the visualized portions of the deep venous system of the rig ht lower extremity. POS: [facility]
[2018-12-11 18:25] LABS: Lactic Acid 1.1 mmol/L (0.5-2.2)
[2018-12-11] MEDS ORDERED: Acetaminophen 325 MG TAB PO PRN (18:37)
[2018-12-11] MEDS ORDERED: Ondansetron ODT 4 MG TAB PO PRN (18:37)
[2018-12-11] MEDS ORDERED: Ondansetron PF 4 MG/2 ML Vial IVP PRN (18:37)
[2018-12-11] MEDS ORDERED: Clindamycin/D5W 900 mg/50 ml Premix Bag ONE (18:41)
--- NOTE | 2018-12-11 19:27 | HP ---
PRIMARY CARE PHYSICIAN: [facility]. CHIEF COMPLAINT: Fever and shortness of breath. HISTORY OF PRESENT ILLNESS: A 53-year-old morbidly obese female with known history of chronic bilateral lower extremity lymphedema, complicated with prior thromboembolism/pulmonary embolism, on chronic anticoagulation; hypertension; asthma; and obstructive sleep apnea on CPAP; brought in by EMS due to worsening ill feeling, fever, and shortness of breath. The patient reportedly developed ill feeling as well as fever associated with chills and shortness of breath in the last few days, which got worse today, hence she called EMS. History is grossly limited due to the patient's condition. On presentation, the patient was found to have fever with T-max of 100.8 as well as tachyarrhythmia. Further evaluation revealed atrial fibrillation with rapid ventricular response. Of note, EMS reported that the patient had fever with temperature of 102.6, and they give the patient Tylenol. Further evaluation in the ER revealed redness of right lower extremity as well as some drainage on the posterior aspect of right leg. Impression of sepsis from cellulitis was made and the patient was started on IV fluid as well as broad-spectrum antibiotics. During the course of the ER stay, blood pressure had dropped to a sachi of 90 and has improved, hence the patient is admitted to IMCU for close monitoring and treatment. There is no history of chest pain, abdominal pain, dysuria, cough, headache, vomiting, change in bowel habit, hematuria, or hematochezia. PAST MEDICAL HISTORY: 1. Morbid obesity. 2. Venous thromboembolism/PE, on chronic anticoagulation with Eliquis. 3. Asthma. 4. Obstructive sleep apnea, on CPAP. 5. Chronic diastolic heart failure. 6. Chronic bilateral lower extremity lymphedema. 7. Depression. PAST SURGICAL HISTORY: 1. Sinus surgery. 2. . 3. Tubal ligation. 4. Bronchoscopy. FAMILY HISTORY: Significant for hypertension, diabetes, CKD, and thrombosis in mother. SOCIAL HISTORY: The patient lives at home with son. She has 4 kids. One of the daughter is the surrogate decision maker. The patient wants to be full code. She is a never smoker. Denied alcohol or recreational drug use. ALLERGIES: ALBUTEROL AND BIAXIN. HOME MEDICATIONS: 1. Lipitor 40 mg p.o. daily at bedtime. 2. Carvedilol 12.5 mg p.o. b.i.d. 3. Cetirizine 10 mg p.o. daily at bedtime. 4. Gabapentin 400 mg t.i.d. 5. Latuda 20 mg p.o. daily. 6. Montelukast 10 mg p.o. daily at bedtime. 7. Nifedipine 60 mg ER daily. 8. Xarelto 20 mg p.o. daily. 9. Furosemide 80 mg p.o. b.i.d. REVIEW OF SYSTEMS: 12-point review of system performed was negative other than pertinent positives and negatives included in the history of present illness. PHYSICAL EXAMINATION: VITAL SIGNS: Most current vitals showed blood pressure 114/78, pulse 112, respiratory rate 22, SpO2 of 96% on room air, T-max is 102.6. GENERAL: Morbidly obese female, in no obvious distress. Afebrile. Anicteric. Acyanotic. HEENT: Normocephalic and atraumatic. Pupils are reacting to light. Oral mucosa is dry. NECK: Short and thick neck noted. CARDIOVASCULAR: Irregular rhythm and rate. Tachycardic with normal heart sounds 1 and 2. RESPIRATORY: Fair air entry bilaterally with few transmitted sounds. Work of breathing is not increased. GI: Abdomen is morbidly obese with pannus. Intertriginous candidiasis is noted with some excoriations. Bowel sounds are normoactive. EXTREMITIES: Bilateral lymphedematous changes noted of both lower extremities. Erythema involving the right lower extremity extending proximally to the mid thigh noted. Excoriations around the skin folds of both lower extremities were also noted, especially on the right side with some excoriations. NEUROLOGIC: Conscious, alert and oriented x3 with appropriate mental status. Cranial nerves 2 through 12 are grossly intact. DIAGNOSTIC DATA: CBC showed WBC count of 18.4, hemoglobin of 13.3, MCV of 83.0, platelet of 179, with neutrophils of 86%. BMP showed sodium 135, potassium 4.1, chloride 102, CO2 of 19, anion gap of 18, BUN 22, creatinine 1.03, glucose 130, calcium 9.1, total bilirubin 1.7, AST 30, ALT 29, alkaline phosphatase 102, total protein 7.5, albumin 3.7. Cardiac markers showed BNP of 478.7. Initial lactic acid was 3.2, repeat 4 hours later was 1.1. Urinalysis showed clear urine with pH of 5.5, specific gravity of 1.019, positive protein, and trace blood with negative glucose, nitrite, bilirubin, and leukocyte esterase. Microscopy showed 0 to 3 rbc and wbc. Chest x-ray showed an enlarged heart with well-expanded lungs without lobar consolidation, pneumothorax, or pleural effusion. Right lower extremity venous Doppler showed no deep vein thrombosis. EKG, atrial fibrillation with rapid ventricular response with a rate of 153. ASSESSMENT: 1. Severe sepsis secondary to right lower extremity cellulitis. 2. Right lower extremity cellulitis. 3. Atrial fibrillation with rapid ventricular response. 4. Acute respiratory insufficiency. 5. Chronic and recurrent venous thromboembolism/pulmonary embolism, on chronic anticoagulation with Eliquis. 6. Chronic diastolic heart failure without decompensation. 7. Morbid obesity. 8. Intertriginous candidiasis. 9. Metabolic acidosis due to sepsis. 10. History of hypertension. 11. Depression with bipolar. 12. History of asthma. 13. Chronic lymphedema of both lower extremities. PLAN: 1. We will continue antimicrobial therapy with vancomycin, Zosyn, and clindamycin. Blood cultures have been obtained as well as wound drainage culture. We will await these cultures. 2. IV fluid therapy with normal saline will be continued. 3. We will start rate control medication with Cardizem given atrial fibrillation. 4. Oxygen supplementation as needed will be provided. 5. We will continue Xarelto for VTE treatment. 6. We will hold nifedipine and Coreg at this time. 7. CPAP at night will be commenced. 8. Code status: Full code. The patient's daughter is the surrogate decision maker. It is anticipated that the patient will be hospitalized for more than 3 midnights. Job ID: [id number]
[2018-12-11 19:30] LABS: Troponin I 0.014 ng/mL (< 0.028)
[2018-12-11] MEDS ORDERED: Vancomycin HCl 1 GM in Premix Bag 1 BAG IVPB SCH (19:45)
[2018-12-11] MEDS: Lactated Ringer's 1,000 ML IV SCH (20:49)
[2018-12-11] MEDS: Famotidine 20 MG TAB PO SCH (20:50)
[2018-12-11] MEDS: Atorvastatin Calcium 40 MG TAB PO SCH (20:50)
[2018-12-11] MEDS: Montelukast Sodium 10 mg Tablet PO SCH (20:50)
[2018-12-11] MEDS: Piperacillin/Tazobactam 4.5 GM in Sodium Chloride 0.9% 100 ML IVPB SCH (20:50)
[2018-12-11] MEDS: Metoprolol Tartrate 25 MG TAB PO SCH (20:50)
[2018-12-12] MEDS: Clindamycin/D5W 900 MG in Premix Bag 1 BAG IVPB SCH ×2 (01:44→11:44)
[2018-12-12] MEDS: Lactated Ringer's 1,000 ML IV SCH ×3 (03:03→20:03)
[2018-12-12] MEDS: Piperacillin/Tazobactam 4.5 GM in Sodium Chloride 0.9% 100 ML IVPB SCH ×4 (03:04→20:05)
[2018-12-12 05:30] LABS: #Lymphocytes 0.9 thou/uL (1.20-3.40); #Monocytes 0.6 thou/uL (0.11-0.59); #Neutrophils 9.4 thou/uL (1.40-6.50); %Basophils 0.2 % (0.0-1.0); %Eosinophils 0.1 % (0.0-10.0); %Lymphocytes 8.6 % (21.0-51.0); %Monocytes 5.1 % (0.0-10.0); Hemoglobin 11.3 g/dL (12.0-16.0); Mean Corpuscular HGB CONC 32.9 g/dL (32.0-36.0); Mean Corpuscular Hemoglobin 28.1 pg (27.0-31.0); Mean Corpuscular Volume 85.2 fL (78.0-98.0); Platelet Count 135 thou/uL (130-400); RBC Distribution Width 13.9 % (11.5-14.5); Red Blood Cell (RBC) Count 4.02 mill/uL (4.20-5.40); White Blood Cell (WBC) Count 10.9 thou/uL (4.8-10.8)
[2018-12-12 05:52] LABS: Anion Gap 10 mmol/L (10-20); BUN (Urea Nitrogen) 20 mg/dL (9.8-20.1); Calc. Creatinine Clearance 242 mL/min (70-130); Calcium 8.4 mg/dL (7.8-10.44); Carbon Dioxide 24 mmol/L (22-29); Chloride 104 mmol/L (98-107); Estimated GFR-MDRD 74; Glucose 92 mg/dL (70-105); Potassium 3.4 mmol/L (3.5-5.1); Sodium 135 mmol/L (136-145)
[2018-12-12] MEDS ORDERED: Vancomycin HCl 1 GM in Sodium Chloride 0.9% 250 ML 250 ML IVPB SCH (09:00)
[2018-12-12] MEDS: Famotidine 20 MG TAB PO SCH ×2 (09:08→20:04)
[2018-12-12] MEDS: Rivaroxaban 10 MG TAB PO SCH (09:08)
[2018-12-12] MEDS: Loratadine 10 MG TAB PO SCH (09:08)
[2018-12-12] MEDS: Metoprolol Tartrate 25 MG TAB PO SCH ×2 (09:08→20:04)
[2018-12-12] MEDS ORDERED: Digoxin 0.5 MG/2 ML AMP SLOW IVP SCH (10:45)
--- NOTE | 2018-12-12 11:44 | PRG ---
DATE OF SERVICE: 12/12/2018 SUBJECTIVE: The patient reports that she is feeling short of breath, so she has been short of breath for a couple of days now. She reports that she does have a history of prior pulmonary emboli. 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 OBJECTIVE: VITAL SIGNS: Temperature is 98.3, pulse is 110 still 120s, currently blood pressure is 109/49, respirations 18, and O2 saturations 95% on room air. GENERAL APPEARANCE: Morbidly obese female. She is awake and alert. She is in no distress. Borderline tachypnea. HEENT: PERRL. No OP lesions. HEART: Irregularly irregular and tachycardic. Faint due to her habitus. LUNGS: Clear without wheezes or rales. ABDOMEN: Soft, nontender, and nondistended. Morbidly obese. EXTREMITIES: Evidence of chronic stasis. She has cellulitic changes from the dorsum of the foot up to the proximal thigh, which appears likely to be decreasing in intensity in the proximal regions. She has multiple cutaneous nodular papular lesions over the right leg as well, which appear to be chronic. LABORATORY DATA: White count is 10.9 down from 18.4, hemoglobin 11.3, platelets 135. Sodium 135, potassium 3.4, CO2 of 24, BUN 20, creatinine 0.81, glucose 92, and last troponin last evening is 0.014. IMPRESSION AND PLAN: 1. Cellulitis of the right lower extremity. We will continue vancomycin and Zosyn. We will discontinue the clindamycin. 2. Atrial fibrillation with mild tachycardia. Currently, her blood pressure is a bit low. She is short of breath so I am going to avoid giving her Cardizem drip. She was on carvedilol at home that was discontinued. She is now on low-dose metoprolol given her current blood pressure, we are going to avoid being more aggressive with that. We will also avoid amiodarone given her shortness of breath and history of prior pulmonary emboli, potentially causing some chronic lung issues. We will go ahead and load her with digoxin now if she does not respond soon. We will consult Cardiology as well. She is already on Xarelto. 3. History of deep venous thrombosis with pulmonary embolism. Again, the patient is already on Xarelto at home. She is continued on that now. 4. Shortness of breath. I am not going to get an ABG because she is on Xarelto. We will see how she responds to the improvement in the tachycardia. She saturating okay and generally appears comfortable. 5. Edema. The patient appears to be on a large dose of Lasix at 80 mg b.i.d. at home; although, her previous echo a year ago look fairly normal. She does have a slightly elevated BNP at this time, so we will go ahead and order a repeat echocardiogram. 6. History of hyperlipidemia. Continue with her usual home statin. Job ID: [id number]
[2018-12-12] MEDS: Digoxin 0.5 MG/2 ML AMP SLOW IVP SCH ×2 (18:05→23:30)
[2018-12-12] MEDS: HYDROcodone/Acetaminophen 5/325 mg Tablet PO PRN (20:03)
[2018-12-12] MEDS: Montelukast Sodium 10 mg Tablet PO SCH (20:04)
[2018-12-12] MEDS: Atorvastatin Calcium 40 MG TAB PO SCH (20:04)
[2018-12-13] MEDS: Lactated Ringer's 1,000 ML IV SCH ×2 (02:47→05:45)
[2018-12-13] MEDS: Piperacillin/Tazobactam 4.5 GM in Sodium Chloride 0.9% 100 ML IVPB SCH ×4 (02:47→20:12)
[2018-12-13 04:48] LABS: Troponin I 0.015 ng/mL (< 0.028)
[2018-12-13] MEDS: Digoxin 0.5 MG/2 ML AMP SLOW IVP SCH (05:45)
[2018-12-13 07:36] LABS: Vancomycin, Trough 11.8 ug/mL
--- NOTE | 2018-12-13 07:52 | RAD ---
XR Chest 1 View Portable HISTORY: Shortness of breath COMPARISON: 12/11/2018 FINDINGS: The heart size enlarged. No lobar consolidation, pneumothoraces, kofi pulmonary edema or l arge effusions are seen.
[2018-12-13] MEDS: Metoprolol Tartrate 25 MG TAB PO SCH (08:46)
[2018-12-13] MEDS: Rivaroxaban 10 MG TAB PO SCH (08:46)
[2018-12-13] MEDS: Loratadine 10 MG TAB PO SCH (08:46)
[2018-12-13] MEDS: Famotidine 20 MG TAB PO SCH ×3 (08:47→20:15)
--- NOTE | 2018-12-13 10:43 | PDOC.HOSPP ---
- Subjective Encounter Date: 12/13/18 Encounter Time: 10:41 Subjective: Says she doesn't feel well in general. Reports some sharp pain in upper right leg intermittently. Still feels a SOB. - Objective Vital Signs & Weight: Vital Signs (12 hours) Temp Pulse Resp Pulse Ox 12/13/18 10:40 98.2 F 12/13/18 07:33 96 12/13/18 07:00 97.2 F L 12/13/18 05:45 89 12/13/18 03:00 97.6 F 12/13/18 00:22 89 35 H 100 12/12/18 23:30 98 12/12/18 23:00 98.5 F Weight Admit Weight 426 lb 8 oz Weight 426 lb 8 oz Most Recent Monitor Data Heart Rate from ECG 111 NIBP 159/107 NIBP BP-Mean 124 Respiration from ECG 20 SpO2 94 I&O: 12/12/18 12/13/18 12/14/18 06:59 06:59 06:59 Intake Total 1543 1800 Output Total 25 400 Balance 1518 1400 Result Diagrams: 12/12/18 05:08 12/12/18 05:08 ROS - Medication Medications: Active Medications Generic Name Dose Route Start Last Admin Trade Name Freq PRN Reason Stop Dose Admin Hydrocodone Bitart/Acetaminophen 1 tab 12/11/18 18:37 12/12/18 20:03 [place] 5/325 PO 1 tab Q4H PRN Administration Moderate Pain (4-6) Atorvastatin Calcium 40 mg 12/11/18 21:00 12/12/18 20:04 Lipitor PO 40 mg HS SKYLER Administration Famotidine 20 mg 12/11/18 21:00 12/13/18 08:51 Pepcid PO Not Given BID SKYLER Piperacillin Sod/Tazobactam 100 mls @ 200 mls/hr 12/11/18 21:00 12/13/18 08: 45 Sod 4.5 gm/ Sodium Chloride IVPB 100 mls 0300,0900,1500,2100 SKYLER Administration Lactated Ringer's 1,000 mls @ 125 mls/hr 12/11/18 18:45 12/13/18 05:45 Lactated Ringer's IV 1,000 mls .Q8H SKYLER Administration Vancomycin HCl 2 gm/ Sodium 500 mls @ 250 mls/hr 12/12/18 08:00 08/09/19 08: 46 Chloride IVPB 500 mls 799,1999 SKYLER Administration Loratadine 10 mg 12/12/18 09:00 12/13/18 08:46 Claritin PO 10 mg DAILY SKYLER Administration Montelukast Sodium 10 mg 12/11/18 21:00 12/12/18 20:04 Singulair PO 10 mg HS SKYLER Administration Rivaroxaban 20 mg 12/12/18 09:00 12/13/18 08:46 Xarelto PO 20 mg DAILY SKYLER Administration - Exam NAD, awake alert General - other findings: Morbidly obese. Neck: supple, symmetric, no JVD, no thyromegaly, no lymphadenopathy, no carotid bruit Heart: irregular Respiratory: CTAB, no wheezes, no rales, no ronchi, normal chest expansion, no tachypnea, normal percussion Respiratory - other findings: Exam compromised by obesity. Gastrointestinal: soft, non-tender, non-distended, normal bowel sounds, no palpable masses, no hepatomegaly, no splenomegaly, no bruit Extremeties - other findings: RLE erythema vastly improved. Chronic BLE edema. Psychiatric - other findings: Slightly flat affect. Hosp A/P (1) Atrial fibrillation with rapid ventricular response Code(s): I48.91 - UNSPECIFIED ATRIAL FIBRILLATION Status: Acute (2) Cellulitis Code(s): L03.90 - CELLULITIS, UNSPECIFIED Status: Acute (3) H/O venous thrombosis and embolism Code(s): Z86.718 - PERSONAL HISTORY OF OTHER VENOUS THROMBOSIS AND EMBOLISM Status: Chronic (4) HTN (hypertension) Code(s): I10 - ESSENTIAL (PRIMARY) HYPERTENSION Status: Chronic - Plan BP running high now. Was low when I examined her yesterday. Will resume Procardia and Coreg. HR better controlled with Dig load. Continue po dig. Transfer to [facility]. She does not have chronic a-fib, but does have a history on one episode. Already on Xarelto. Echo normal. Cellulitis much improved. Superficial culture grew Strep. Likely the culprit. DC the Vancomycin. Continue Zosyn. Can likely change to po's tomorrow. RLE pain in the proximal thigh may be related to LN. Cannot palpate due to obesity. SOB likely related to the obesity. No wheezing. HR controlled better.
[2018-12-13] MEDS ORDERED: NIFEdipine XL 60 MG TAB PO SCH (11:00)
--- NOTE | 2018-12-13 11:39 | CON ---
DATE OF CONSULTATION: 12/13/2018 REASON FOR CONSULTATION: IMCU placement. HISTORY OF PRESENT ILLNESS: The patient is a 53-year-old female, who was admitted to the hospital on 12/11 with fever, right leg cellulitis, and shortness of breath. She has gotten better with antibiotics. She also has known to be chronic atrial fibrillation. There is mention note yesterday. There was concern that the AFib could be causing a problem. There was a note that Cardiology must be consulted, but that was never done. PAST MEDICAL HISTORY: 1. Obesity. 2. DVT/PE, on chronic anticoagulation. 3. Asthma. 4. LILO, on CPAP at home. 5. Chronic diastolic heart failure. 6. Chronic atrial fibrillation. 7. Bilateral lower extremity lymphedema. 8. Depression. PAST SURGICAL HISTORY: 1. Sinus surgery. 2. . 3. Tubal ligation. 4. Bronchoscopy. FAMILY MEDICAL HISTORY: Remarkable for diabetes, chronic kidney disease, deep venous thrombosis, and hypertension. SOCIAL HISTORY: Lives at home. Just moved down here from the [facility]. Never smoker. Does not consume alcohol. ALLERGIES: ALBUTEROL AND BIAXIN. MEDICATIONS PRIOR TO ADMISSION: 1. Lipitor. 2. Carvedilol. 3. Cetirizine. 4. Gabapentin. 5. Latuda. 6. Montelukast. 7. Nifedipine. 8. Xarelto. 9. Furosemide. REVIEW OF SYSTEMS: 12-point review is otherwise negative. PHYSICAL EXAMINATION: VITAL SIGNS: Temperature 97.2, pulse 111, respirations 20, blood pressure 159/107. HEENT: Remarkable for class 4 Mallampati airway. NECK: No adenopathy. No JVD. CHEST: Clear to auscultation. CARDIAC: S1 and S2. Irregularly irregular. ABDOMEN: Morbidly obese, soft, nontender. EXTREMITIES: She has an outlying area over the right leg, which I think was previously erythematous. Right now, there is no erythema present. She has some nodular vesicular regions over her right anterior tibial region. LABORATORY DATA: White blood cell count 10.9, hematocrit 34.3, and platelet count 135. Sodium 135, potassium 3.4, chloride 104, CO2 of 24, BUN 20, creatinine 0.8, glucose 92. ASSESSMENT: 1. Cellulitis. 2. Morbid obesity. 3. Obstructive sleep apnea. 4. Chronic atrial fibrillation. PLAN: From my standpoint, she can move from the IMCU. If Cardiology needs to see her, then she will probably need to be on a quality assurance monitor body. If they do not need to pursue this patient care, then she can probably be moved to the medical floor. No further Pulmonary recommendations at this time. Job ID: [id number]
[2018-12-13] MEDS: hydrALAZINE 20 MG/ML VIAL SLOW IVP PRN (13:19)
[2018-12-13] MEDS: HYDROcodone/Acetaminophen 5/325 mg Tablet PO PRN (13:24)
[2018-12-13] MEDS ORDERED: Gabapentin 400 MG CAP PO SCH (15:00)
[2018-12-13] MEDS: LURASIDONE 20 MG PO SCH (17:54)
[2018-12-13] MEDS: Furosemide 80 MG TAB PO SCH (20:14)
[2018-12-13] MEDS: Atorvastatin Calcium 40 MG TAB PO SCH (20:15)
[2018-12-13] MEDS: Carvedilol 6.25 MG TAB PO SCH (20:15)
[2018-12-13] MEDS: Gabapentin 400 MG CAP PO SCH (20:15)
[2018-12-13] MEDS: hydrOXYzine 25 MG TAB PO SCH (20:16)
[2018-12-13] MEDS: Ferrous Sulfate 325 MG TAB PO SCH (20:16)
[2018-12-13] MEDS: Montelukast Sodium 10 mg Tablet PO SCH (20:16)
[2018-12-13] MEDS: OXcarbazepine 300 MG TAB PO SCH (20:18)
[2018-12-13] MEDS ORDERED: OXcarbazepine 600 MG TAB PO SCH (21:00)
[2018-12-13] MEDS: Diltiazem 125 MG in Sodium Chloride 0.9% 100 ML IVPB SCH (21:38)
[2018-12-13] MEDS: Simethicone Chewable 80 MG TAB PO PRN (21:39)
[2018-12-14] MEDS: Piperacillin/Tazobactam 4.5 GM in Sodium Chloride 0.9% 100 ML IVPB SCH ×4 (02:50→20:57)
[2018-12-14] MEDS: Rivaroxaban 10 MG TAB PO SCH (09:04)
[2018-12-14] MEDS: OXcarbazepine 300 MG TAB PO SCH ×2 (09:04→20:45)
[2018-12-14] MEDS: Ferrous Sulfate 325 MG TAB PO SCH ×2 (09:04→20:46)
[2018-12-14] MEDS: Digoxin 0.25 MG TAB PO SCH (09:05)
[2018-12-14] MEDS: Gabapentin 400 MG CAP PO SCH ×2 (09:05→20:44)
[2018-12-14] MEDS: Simethicone Chewable 80 MG TAB PO PRN (09:05)
[2018-12-14] MEDS: NIFEdipine XL 60 MG TAB PO SCH (09:05)
[2018-12-14] MEDS: Loratadine 10 MG TAB PO SCH (09:06)
[2018-12-14] MEDS: Furosemide 80 MG TAB PO SCH ×2 (09:06→20:46)
[2018-12-14] MEDS: Carvedilol 6.25 MG TAB PO SCH ×2 (09:06→20:45)
[2018-12-14] MEDS: Cyanocobalamin (Vitamin B-12) 1,000 MCG TAB PO SCH (09:06)
[2018-12-14] MEDS: Famotidine 20 MG TAB PO SCH ×2 (09:40→20:46)
--- NOTE | 2018-12-14 09:57 | PDOC.HOSPP ---
- Subjective Encounter Date: 12/14/18 Encounter Time: 09:55 Subjective: About the same. Now she is coughing up a little sputum. Had a little blood mixed with the sputum. She reports that she can ambulate a little, but has to use a walker and and had a scooter. - Objective Vital Signs & Weight: Vital Signs (12 hours) Temp Pulse Resp BP Pulse Ox 12/14/18 09:06 145/99 H 12/14/18 09:05 118 H 145/99 H 12/14/18 07:55 95 12/14/18 07:22 97.3 F L 12/14/18 03:51 97.6 F 12/14/18 02:48 62 20 100 12/14/18 00:16 100 12/14/18 00:00 97.6 F Weight Admit Weight 426 lb 8 oz Weight 426 lb 14.4 oz Most Recent Monitor Data Heart Rate from ECG 118 NIBP 145/99 NIBP BP-Mean 114 Respiration from ECG 10 SpO2 88 I&O: 12/13/18 12/14/18 12/15/18 06:59 06:59 06:59 Intake Total 1800 2782.5 240 Output Total 400 2750 Balance 1400 32.5 240 Result Diagrams: 12/12/18 05:08 12/12/18 05:08 ROS - Medication Medications: Active Medications Generic Name Dose Route Start Last Admin Trade Name Freq PRN Reason Stop Dose Admin Hydrocodone Bitart/Acetaminophen 1 tab 12/11/18 18:37 12/13/18 13:24 [place] 5/325 PO 1 tab Q4H PRN Administration Moderate Pain (4-6) Atorvastatin Calcium 40 mg 12/11/18 21:00 12/13/18 20:15 Lipitor PO 40 mg HS SKYLER Administration Carvedilol 12.5 mg 12/13/18 21:00 12/14/18 09:06 Coreg PO 12.5 mg BID SKYLER Administration Cyanocobalamin 1,000 mcg 12/14/18 09:00 12/14/18 09:06 Vitamin B-12 PO 1,000 mcg DAILY SKYLER Administration Digoxin 0.25 mg 12/14/18 09:00 12/14/18 09:05 Lanoxin PO 0.25 mg DAILY SKYLER Administration Famotidine 20 mg 12/11/18 21:00 12/14/18 09:40 Pepcid PO Not Given BID SKYLER Ferrous Sulfate 325 mg 12/13/18 21:00 12/14/18 09:04 Feosol PO 325 mg BID SKYLER Administration Furosemide 80 mg 12/13/18 21:00 12/14/18 09:06 Lasix PO 80 mg BID SKYLER Administration Gabapentin 800 mg 12/13/18 21:00 12/13/18 20:15 Neurontin PO 800 mg HS SKYLER Administration Gabapentin 400 mg 12/14/18 09:00 12/14/18 09:05 Neurontin PO 400 mg QAM SKYLER Administration Hydralazine HCl 10 mg 12/13/18 10:51 12/13/18 13:19 Apresoline SLOW IVP 10 mg Q4H PRN Administration SBP > 185, DBP > 100 Hydroxyzine HCl 100 mg 12/13/18 21:00 12/13/18 20:16 Atarax PO 100 mg HS SKYLER Administration Piperacillin Sod/Tazobactam 100 mls @ 200 mls/hr 12/11/18 21:00 12/14/18 09: 06 Sod 4.5 gm/ Sodium Chloride IVPB 100 mls 0300,0900,1500,2100 SKYLER Administration Diltiazem HCl 125 mg/ Sodium 125 mls @ 10 mls/hr 12/13/18 21:15 12/13/18 21: 38 Chloride IVPB 125 mls INF SKYLER Administration Protocol 10 MG/HR Loratadine 10 mg 12/12/18 09:00 12/14/18 09:06 Claritin PO 10 mg DAILY SKYLER Administration Montelukast Sodium 10 mg 12/11/18 21:00 12/13/18 20:16 Singulair PO 10 mg HS SKYLER Administration Nifedipine 60 mg 12/14/18 09:00 12/14/18 09:05 Procardia Xl PO 60 mg DAILY SKYLER Administration Oxcarbazepine 600 mg 12/13/18 21:00 12/14/18 09:04 Trileptal PO 600 mg BID SKYLER Administration Lurasidone [Latuda] 0 each 12/13/18 17:00 12/13/18 17:54 20 Mg PO 1 each QPM-WM SKYLER Administration Rivaroxaban 20 mg 12/12/18 09:00 12/14/18 09:04 Xarelto PO 20 mg DAILY SKYLER Administration Simethicone 80 mg 12/13/18 21:02 12/14/18 09:05 Mylicon Chewable PO 80 mg PCHS PRN Administration Gas Pain - Exam NAD (Morbidly obese.), awake alert Heart: no murmur, irregular Respiratory: CTAB, no wheezes, no rales, no ronchi Gastrointestinal: soft, non-tender, non-distended, normal bowel sounds, no palpable masses Skin - other findings: RLE erythema resolved on the thigh, less intense on calf , but persists. Neurological: CN's grossly intact (Slightly flat affect.) Hosp A/P (1) Atrial fibrillation with rapid ventricular response Code(s): I48.91 - UNSPECIFIED ATRIAL FIBRILLATION Status: Acute Plan: Had increased tachycardia last night. She was started on Cardizem gtt. On Xarelto, Dig, Coreg. Avoided Amio due to SOB. Better rate control now. Discussed with Dr. Steel. Patient confirms that she had an isolated episode of A fib a few years ago. She does not know exactly when. She is not chronically in afib. (2) Cellulitis Code(s): L03.90 - CELLULITIS, UNSPECIFIED Status: Acute (3) H/O venous thrombosis and embolism Code(s): Z86.718 - PERSONAL HISTORY OF OTHER VENOUS THROMBOSIS AND EMBOLISM Status: Chronic (4) HTN (hypertension) Code(s): I10 - ESSENTIAL (PRIMARY) HYPERTENSION Status: Chronic - Plan Resumed Procardia and Coreg. On Cardizem gtt and maintenance digoxin. On Xarelto for hx of PE. Echo normal. Cellulitis much improved. Superficial culture grew Strep. and now Staph. Will change to Levaquin based on sensitivities of both organisms. CXR for productive cough. Levaquin should be reasonable coverage. Have not worked up the possibility for recurrent PE. Risk is low. Negative LE doppler, no RV strain or increased PAP on echo. On Xarelto. Don't think she could do CT.
[2018-12-14] MEDS: HYDROcodone/Acetaminophen 5/325 mg Tablet PO PRN ×2 (10:02→20:46)
--- NOTE | 2018-12-14 10:47 | PRG ---
DATE OF SERVICE: 12/14/2018 SUBJECTIVE: This patient has had some hypoxemia overnight with O2 sats in the high 80s. She says she is somewhat short of breath. OBJECTIVE: VITAL SIGNS: Temperature is 97.3, pulse 118, and blood pressure 145/99. HEENT: Unremarkable. NECK: No JVD. LUNGS: Inspiratory crackles bilaterally. CARDIAC: S1 and S2, regular. ABDOMEN: Morbidly obese, soft, and nontender. EXTREMITIES: No edema. Of note, this patient is on Xarelto for previous history of DVT. ASSESSMENT: The patient is probably hypoxemic secondary to fluid overload and her morbid obesity. PLAN: 1. I would diurese the patient as you are doing. 2. Add low-flow oxygen. 3. Continue observation in [facility]. Job ID: [id number]
[2018-12-14] MEDS: Diltiazem 125 MG in Sodium Chloride 0.9% 100 ML IVPB SCH (11:08)
--- NOTE | 2018-12-14 11:40 | CON ---
DATE OF CONSULTATION: 12/14/2018 REASON FOR CONSULTATION: Atrial fibrillation with RVR. 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 Spencer is a very pleasant 53-year-old white female, who comes to the hospital for fevers and shortness of breath. She was found to have temperature of 102.6 and diagnosed with cellulitis of the right lower extremities. She was started on IV antibiotics. With improvement of her cellulitis, she developed atrial fibrillation with RVR, heart rate was in the 140s on arrival. She eventually converted back to sinus and is back in atrial fibrillation now. She was started on diltiazem drip last night and she has been rate controlled since last night with a heart rate in the 60s to 70s. She currently denies any chest pain, tightness, or pressure. She is morbidly obese and cannot walk much except with a walker. PAST MEDICAL HISTORY: 1. Morbid obesity. BMI of 68. 2. Venous thromboembolism and PE, on chronic anticoagulation with Xarelto. 3. Bronchial asthma. 4. Sleep apnea. 5. Chronic diastolic heart failure. 6. Chronic bilateral lower extremity lymphedema. 7. Depression. SURGICAL HISTORY: 1. Sinus surgery. 2. . 3. Tubal ligation. 4. Bronchoscopy. FAMILY HISTORY: Hypertension, diabetes, and CKD. SOCIAL HISTORY: Lives at home with son. Has four kids total. One of her daughter is surrogate decision maker. No alcohol, tobacco, or drugs. OUTPATIENT MEDICATIONS: 1. Lipitor 40 mg daily. 2. Carvedilol 12.5 mg b.i.d. 3. Cetirizine 10 mg at bedtime. 4. Gabapentin 400 mg t.i.d. 5. Latuda 20 mg a day. 6. Montelukast. 7. Nifedipine 60 mg daily. 8. Xarelto 20 mg a day. 9. Furosemide 80 mg b.i.d. ALLERGIES: ALBUTEROL AND BIAXIN. REVIEW OF SYSTEMS: A 12-point review of systems was done and was all negative unless stated in history of present illness. PHYSICAL EXAMINATION: VITAL SIGNS: Temperature 97.3; pulse is currently in the 60s, but has been as high as 140s; blood pressure 145/99; respiratory rate 21; and saturating 90% on room air. GENERAL: Awake, alert, oriented x3, in no distress. HEENT: Normocephalic and atraumatic. NECK: Supple. LUNGS: Have distant sounds, but clear. CARDIOVASCULAR: S1 and S2. Regularly regular. Heart rate in the 60s to 70s. ABDOMEN: Prominent distant bowel sounds. EXTREMITIES: 1+ edema. Right lower leg is erythematous, but most likely has significantly improved, this is not too erythematous. LABORATORY DATA: Laboratory work was reviewed. White count of 18 down to 10; hemoglobin of 13 down to 11; platelet count is normal. Coags, D-dimer was high. ABG was reviewed. Chemistries were reviewed. Potassium was 3.4. BNP was 478. Troponin was negative. UA with trace blood, 2+ crystals. Blood cultures have been negative. ASSESSMENT/PLAN: 1. Atrial fibrillation with rapid ventricular response. Rate control is her best choice right now. She has a paroxysmal atrial fibrillation and this is most likely driven by her current infection. I expect her to convert to sinus rhythm at some point today with the level of rate control as she has on the current diltiazem drip. We will keep her on the drip for now. 2. Continue Xarelto for both history of deep venous thrombosis, pulmonary embolisms, and stroke prophylaxis for atrial fibrillation. 3. LV function appears normal at 60% to 65% with mild mitral regurgitation and tricuspid regurgitation, but technically difficult study. Thank you for letting us to participate in the care of your patient. Job ID: [id number]
[2018-12-14] MEDS: LURASIDONE 20 MG PO SCH (18:15)
[2018-12-14] MEDS: hydrOXYzine 25 MG TAB PO SCH (20:43)
[2018-12-14] MEDS: Montelukast Sodium 10 mg Tablet PO SCH (20:44)
[2018-12-14] MEDS: Atorvastatin Calcium 40 MG TAB PO SCH (20:45)
[2018-12-15] MEDS: Piperacillin/Tazobactam 4.5 GM in Sodium Chloride 0.9% 100 ML IVPB SCH ×4 (03:30→21:40)
[2018-12-15] MEDS: Diltiazem 125 MG in Sodium Chloride 0.9% 100 ML IVPB SCH (04:04)
[2018-12-15] MEDS ORDERED: NIFEdipine XL 30 MG TAB PO SCH (09:00)
[2018-12-15] MEDS ORDERED: NIFEdipine XL 60 MG TAB PO SCH ×2 (09:12→09:15)
--- NOTE | 2018-12-15 10:15 | PRG ---
DATE OF SERVICE: 12/15/2018 SUBJECTIVE: Ms. Spencer is resting comfortably on BiPAP, has no complaints. OBJECTIVE: VITAL SIGNS: Temperature is 97.6, pulse 83, respirations 20, O2 saturation 95% on BiPAP, and blood pressure 101/58. HEENT: Unremarkable. NECK: No adenopathy or JVD. CHEST: Clear, but diminished breath sounds. CARDIAC: S1 and S2, regular. ABDOMEN: Soft. EXTREMITIES: No edema. ASSESSMENT: 1. Fluid overload. 2. Morbid obesity. 3. Obstructive sleep apnea. PLAN: 1. Continue diuresis. 2. BiPAP at night. Job ID: [id number]
--- NOTE | 2018-12-15 10:51 | RAD ---
EXAM: Chest 2 views: HISTORY: Cough and shortness of breath COMPARISON: 10/30/2017 FINDINGS: There is a normal-sized cardiomediastinal silhouette. There is no evidence of consolidation, mass, or pleural effusion. The bones are unremarkable. IMPRESSION: No evidence of acute cardiopulmonary disease
[2018-12-15] MEDS: Furosemide 80 MG TAB PO SCH ×2 (11:01→20:36)
[2018-12-15] MEDS: Rivaroxaban 10 MG TAB PO SCH (11:01)
[2018-12-15] MEDS: Digoxin 0.25 MG TAB PO SCH (11:01)
[2018-12-15] MEDS: Cyanocobalamin (Vitamin B-12) 1,000 MCG TAB PO SCH (11:01)
[2018-12-15] MEDS: Loratadine 10 MG TAB PO SCH (11:02)
[2018-12-15] MEDS: Carvedilol 6.25 MG TAB PO SCH ×2 (11:02→20:36)
[2018-12-15] MEDS: Famotidine 20 MG TAB PO SCH ×2 (11:02→20:37)
[2018-12-15] MEDS: Ferrous Sulfate 325 MG TAB PO SCH ×2 (11:02→20:36)
[2018-12-15] MEDS: Gabapentin 400 MG CAP PO SCH ×2 (11:03→20:36)
[2018-12-15] MEDS: OXcarbazepine 300 MG TAB PO SCH ×2 (11:03→20:37)
[2018-12-15] MEDS: NIFEdipine XL 60 MG TAB PO SCH (11:32)
[2018-12-15] MEDS: HYDROcodone/Acetaminophen 5/325 mg Tablet PO PRN (12:13)
--- NOTE | 2018-12-15 13:03 | PDOC.HOSPP ---
- Subjective Encounter Date: 12/15/18 Encounter Time: 13:01 Subjective: Patient seen and examined, no new issues or complaints. - Objective Vital Signs & Weight: Vital Signs (12 hours) Temp Pulse Resp BP Pulse Ox 12/15/18 12:02 98.4 F 101 H 20 146/66 H 92 L 12/15/18 11:01 73 12/15/18 07:54 97.6 F 73 20 101/58 L 95 12/15/18 04:00 96.0 F L 69 20 107/59 L 92 L Weight Admit Weight 426 lb 8 oz Weight 423 lb 8 oz Most Recent Monitor Data Heart Rate from ECG 91 NIBP 165/111 NIBP BP-Mean 129 Respiration from ECG 23 SpO2 90 I&O: 12/14/18 12/15/18 12/16/18 06:59 06:59 06:59 Intake Total 2782.5 2002.9 Output Total 2750 900 Balance 32.5 1102.9 Result Diagrams: 12/12/18 05:08 12/12/18 05:08 ROS - Medication Medications: Active Medications Generic Name Dose Route Start Last Admin Trade Name Freq PRN Reason Stop Dose Admin Hydrocodone Bitart/Acetaminophen 1 tab 12/11/18 18:37 12/15/18 12:13 [place] 5/325 PO 1 tab Q4H PRN Administration Moderate Pain (4-6) Atorvastatin Calcium 40 mg 12/11/18 21:00 12/14/18 20:45 Lipitor PO 40 mg HS SKYLER Administration Carvedilol 12.5 mg 12/13/18 21:00 12/15/18 11:02 Coreg PO 12.5 mg BID SKYLER Administration Cyanocobalamin 1,000 mcg 12/14/18 09:00 12/15/18 11:01 Vitamin B-12 PO 1,000 mcg DAILY SKYLER Administration Digoxin 0.25 mg 12/14/18 09:00 12/15/18 11:01 Lanoxin PO 0.25 mg DAILY SKYLER Administration Famotidine 20 mg 12/11/18 21:00 12/15/18 11:02 Pepcid PO Not Given BID SKYLER Ferrous Sulfate 325 mg 12/13/18 21:00 12/15/18 11:02 Feosol PO 325 mg BID SKYLER Administration Furosemide 80 mg 12/13/18 21:00 12/15/18 11:01 Lasix PO 80 mg BID SKYLER Administration Gabapentin 800 mg 12/13/18 21:00 12/14/18 20:44 Neurontin PO 800 mg HS SKYLER Administration Gabapentin 400 mg 12/14/18 09:00 12/15/18 11:03 Neurontin PO 400 mg QAM SKYLER Administration Hydralazine HCl 10 mg 12/13/18 10:51 12/13/18 13:19 Apresoline SLOW IVP 10 mg Q4H PRN Administration SBP > 185, DBP > 100 Hydroxyzine HCl 100 mg 12/13/18 21:00 12/14/18 20:43 Atarax PO 100 mg HS SKYLER Administration Piperacillin Sod/Tazobactam 100 mls @ 200 mls/hr 12/11/18 21:00 12/15/18 12: 07 Sod 4.5 gm/ Sodium Chloride IVPB 100 mls 0300,0900,1500,2100 SKYLER Administration Diltiazem HCl 125 mg/ Sodium 125 mls @ 10 mls/hr 12/13/18 21:15 12/15/18 04: 04 Chloride IVPB 125 mls INF SKYLER Administration Protocol 10 MG/HR Levofloxacin 500 mg/ Device 100 mls @ 100 mls/hr 12/14/18 11:00 12/15/18 10: 59 IVPB 100 mls Q24HR SKYLER Administration Loratadine 10 mg 12/12/18 09:00 12/15/18 11:02 Claritin PO 10 mg DAILY SKYLER Administration Montelukast Sodium 10 mg 12/11/18 21:00 12/14/18 20:44 Singulair PO 10 mg HS SKYLER Administration Nifedipine 30 mg 12/15/18 09:00 12/15/18 11:01 Procardia Xl PO 30 mg DAILY SKYLER Administration Oxcarbazepine 600 mg 12/13/18 21:00 12/15/18 11:03 Trileptal PO 600 mg BID SKYLER Administration Lurasidone [Latuda] 0 each 12/13/18 17:00 12/14/18 18:15 20 Mg PO 1 each QPM-WM SKYLRE Administration Rivaroxaban 20 mg 12/12/18 09:00 12/15/18 11:01 Xarelto PO 20 mg DAILY SKYLER Administration Simethicone 80 mg 12/13/18 21:02 12/14/18 09:05 Mylicon Chewable PO 80 mg PCHS PRN Administration Gas Pain Sodium Chloride 10 ml 12/14/18 21:00 12/15/18 11:04 Flush - Normal Saline IVF 10 ml Q12HR SKYLER Administration Sodium Chloride 10 ml 12/14/18 10:14 12/15/18 03:30 Flush - Normal Saline IVF 10 ml PRN PRN Administration Saline Flush - Exam NAD, awake alert General - other findings: morbidly obese Eye: PERRL, anicteric sclera ENT: normocephalic atraumatic, no oropharyngeal lesions Neck: supple, symmetric, no JVD Heart: RRR, no murmur, no gallops, no rubs Respiratory: CTAB, no wheezes, no rales Gastrointestinal: soft, non-tender, non-distended Extremities: no cyanosis, no clubbing, 2+ LE edema Hosp A/P (1) Obesity Code(s): E66.9 - OBESITY, UNSPECIFIED Status: Acute (2) Cellulitis Code(s): L03.90 - CELLULITIS, UNSPECIFIED Status: Acute (3) Dyslipidemia Code(s): E78.5 - HYPERLIPIDEMIA, UNSPECIFIED Status: Chronic (4) H/O venous thrombosis and embolism Code(s): Z86.718 - PERSONAL HISTORY OF OTHER VENOUS THROMBOSIS AND EMBOLISM Status: Chronic (5) HTN (hypertension) Code(s): I10 - ESSENTIAL (PRIMARY) HYPERTENSION Status: Chronic - Plan - cont abx - image studies to be done today - states she feels better overall but not fully there - labs in AM - BP slightly low, will reduce nifedipine to 30mg po dailyfrom 60mg po daily - case and plan d/w patient at length, she understood and agreed with this plan.
[2018-12-15] MEDS: LURASIDONE 20 MG PO SCH (16:31)
--- NOTE | 2018-12-15 17:07 | PDOC.CTH ---
Cardiology Progress Note - Subjective No new issues. Still SOB but unchanged. - Objective Vital Signs Temp Pulse Resp BP Pulse Ox 12/15/18 16:35 98.9 F 88 20 116/74 96 12/15/18 12:02 98.4 F 101 H 20 146/66 H 92 L 12/15/18 11:01 73 12/15/18 07:54 97.6 F 73 20 101/58 L 95 Admit Weight 426 lb 8 oz Weight 423 lb 8 oz 12/14/18 12/15/18 12/16/18 06:59 06:59 06:59 Intake Total 2782.5 2002.9 Output Total 2750 900 Balance 32.5 1102.9 - Physical Examination General/Neuro: alert & oriented x3, NAD, other: (Morbidly obese) Neck: no JVD present Lungs: unlabored respirations Heart: other: (Irreg irreg) Abdomen: NT/ND Extremities: + edema B (2+) - Telemetry Telemetry Rhythm: Afib HR 80's . - Labs Result Diagrams: 12/12/18 05:08 12/12/18 05:08 Troponin/CKMB Troponin I 0.015 ng/mL (< 0.028) 12/13/18 03:45 - Assessment/Plan 1. Afib RVR, rate control now. 2. Hx of DVT/PE 3. Chronic anticoagulation on Xarelto 4. Morbid obesity 5. RLE cellulitis. PLAN: - Continue Xarelto - Replace K - Continue rate control with CCB, will switch to PO. - Abx per primary team.
[2018-12-15] MEDS: Atorvastatin Calcium 40 MG TAB PO SCH (20:35)
[2018-12-15] MEDS: hydrOXYzine 25 MG TAB PO SCH (20:35)
[2018-12-15] MEDS: Montelukast Sodium 10 mg Tablet PO SCH (20:37)
[2018-12-15] MEDS ORDERED: Diltiazem HCl SR 60 mg Capsule PO SCH (21:00)
[2018-12-15] MEDS: Levalbuterol HCl 0.63 MG/3 ML NEB NEB PRN (21:59)
[2018-12-15] MEDS: hydrALAZINE 20 MG/ML VIAL SLOW IVP PRN (23:49)
[2018-12-16] MEDS: Piperacillin/Tazobactam 4.5 GM in Sodium Chloride 0.9% 100 ML IVPB SCH (03:27)
[2018-12-16 05:31] LABS: #Eosinphils 0.2 thou/uL (0.0-0.7); #Lymphocytes 1.7 thou/uL (1.20-3.40); #Monocytes 1.1 thou/uL (0.11-0.59); #Neutrophils 7.2 thou/uL (1.40-6.50); %Basophils 0.2 % (0.0-1.0); %Eosinophils 1.7 % (0.0-10.0); %Lymphocytes 16.4 % (21.0-51.0); %Monocytes 11.1 % (0.0-10.0); %Neutrophils 70.5 % (42.0-75.0); Hemoglobin 9.8 g/dL (12.0-16.0); Mean Corpuscular HGB CONC 31.8 g/dL (32.0-36.0); Mean Corpuscular Volume 84.7 fL (78.0-98.0); Mean Platelet Volume 8.3 fL (7.4-10.4); Platelet Count 217 thou/uL (130-400); RBC Distribution Width 14.1 % (11.5-14.5); Red Blood Cell (RBC) Count 3.64 mill/uL (4.20-5.40); White Blood Cell (WBC) Count 10.3 thou/uL (4.8-10.8)
[2018-12-16 05:51] LABS: Anion Gap 11 mmol/L (10-20); BUN (Urea Nitrogen) 14 mg/dL (9.8-20.1); Calc. Creatinine Clearance 292 mL/min (70-130); Calcium 9.1 mg/dL (7.8-10.44); Carbon Dioxide 31 mmol/L (22-29); Chloride 99 mmol/L (98-107); Estimated GFR-MDRD Greater than 90; Glucose 108 mg/dL (70-105); Sodium 138 mmol/L (136-145)
[2018-12-16] MEDS: OXcarbazepine 300 MG TAB PO SCH ×2 (08:35→20:27)
[2018-12-16] MEDS: Digoxin 0.25 MG TAB PO SCH (08:35)
[2018-12-16] MEDS: Rivaroxaban 10 MG TAB PO SCH (08:35)
[2018-12-16] MEDS: Gabapentin 400 MG CAP PO SCH ×2 (08:35→20:26)
[2018-12-16] MEDS: Loratadine 10 MG TAB PO SCH (08:35)
[2018-12-16] MEDS: Furosemide 80 MG TAB PO SCH ×2 (08:35→20:25)
[2018-12-16] MEDS: Cyanocobalamin (Vitamin B-12) 1,000 MCG TAB PO SCH (08:35)
--- NOTE | 2018-12-16 08:35 | PDOC.HOSPP ---
- Subjective Encounter Date: 12/16/18 Encounter Time: 08:32 Subjective: soar throat, OW no complaints - Objective Vital Signs & Weight: Vital Signs (12 hours) Temp Pulse Resp BP BP Pulse Ox 12/16/18 07:04 98.3 F 87 20 143/87 H 93 L 12/16/18 03:31 98.0 F 85 16 137/80 93 L 12/16/18 00:00 98.0 F 87 18 131/72 97 12/15/18 23:49 95 188/76 H 12/15/18 21:59 95 20 94 L 12/15/18 21:22 86 20 99 12/15/18 20:36 155/88 H Weight Admit Weight 426 lb 8 oz Weight 411 lb 8 oz Most Recent Monitor Data Heart Rate from ECG 91 NIBP 165/111 NIBP BP-Mean 129 Respiration from ECG 23 SpO2 90 I&O: 12/15/18 12/16/18 12/17/18 06:59 06:59 06:59 Intake Total 2002.9 1999 Output Total 900 1999 Balance 1102.9 0 Result Diagrams: 12/16/18 05:12 12/16/18 05:12 ROS - Medication Medications: Active Medications Generic Name Dose Route Start Last Admin Trade Name Freq PRN Reason Stop Dose Admin Hydrocodone Bitart/Acetaminophen 1 tab 12/11/18 18:37 12/15/18 12:13 [place] 5/325 PO 1 tab Q4H PRN Administration Moderate Pain (4-6) Atorvastatin Calcium 40 mg 12/11/18 21:00 12/15/18 20:35 Lipitor PO 40 mg HS SKYLER Administration Carvedilol 12.5 mg 12/13/18 21:00 12/15/18 20:36 Coreg PO 12.5 mg BID SKYLER Administration Cyanocobalamin 1,000 mcg 12/14/18 09:00 12/15/18 11:01 Vitamin B-12 PO 1,000 mcg DAILY SKYLER Administration Digoxin 0.25 mg 12/14/18 09:00 12/15/18 11:01 Lanoxin PO 0.25 mg DAILY SKYLER Administration Famotidine 20 mg 12/11/18 21:00 12/15/18 20:37 Pepcid PO Not Given BID SKYLER Ferrous Sulfate 325 mg 12/13/18 21:00 12/15/18 20:36 Feosol PO 325 mg BID SKYLER Administration Furosemide 80 mg 12/13/18 21:00 12/15/18 20:36 Lasix PO 80 mg BID SKYLER Administration Gabapentin 800 mg 12/13/18 21:00 12/15/18 20:36 Neurontin PO 800 mg HS SKYLER Administration Gabapentin 400 mg 12/14/18 09:00 12/15/18 11:03 Neurontin PO 400 mg QAM SKYLER Administration Hydralazine HCl 10 mg 12/13/18 10:51 12/15/18 23:49 Apresoline SLOW IVP 10 mg Q4H PRN Administration SBP > 185, DBP > 100 Hydroxyzine HCl 100 mg 12/13/18 21:00 12/15/18 20:35 Atarax PO 100 mg HS SKYLER Administration Levofloxacin 500 mg/ Device 100 mls @ 100 mls/hr 12/14/18 11:00 12/15/18 10: 59 IVPB 100 mls Q24HR SKYLER Administration Levalbuterol HCl 0.63 mg 12/15/18 21:18 12/15/18 21:59 Xopenex NEB 0.63 mg [id number] PRN Administration SOB &/or Wheezing Loratadine 10 mg 12/12/18 09:00 12/15/18 11:02 Claritin PO 10 mg DAILY SKYLER Administration Montelukast Sodium 10 mg 12/11/18 21:00 12/15/18 20:37 Singulair PO 10 mg HS SKYLER Administration Oxcarbazepine 600 mg 12/13/18 21:00 12/15/18 20:37 Trileptal PO 600 mg BID SKYLER Administration Lurasidone [Latuda] 0 each 12/13/18 17:00 12/15/18 16:31 20 Mg PO 1 each QPM-WM SKYLER Administration Rivaroxaban 20 mg 12/12/18 09:00 12/15/18 11:01 Xarelto PO 20 mg DAILY SKYLER Administration Simethicone 80 mg 12/13/18 21:02 12/14/18 09:05 Mylicon Chewable PO 80 mg PCHS PRN Administration Gas Pain Sodium Chloride 10 ml 12/14/18 21:00 12/15/18 20:38 Flush - Normal Saline IVF 10 ml Q12HR SKYLER Administration Sodium Chloride 10 ml 12/14/18 10:14 08/11/19 03:30 Flush - Normal Saline IVF 10 ml PRN PRN Administration Saline Flush - Exam Neck: no JVD Heart: RRR, no murmur Respiratory: CTAB Gastrointestinal: soft, non-tender, normal bowel sounds Extremities: 2+ LE edema Skin - other findings: erythema resolved Hosp A/P (1) Sepsis Code(s): A41.9 - SEPSIS, UNSPECIFIED ORGANISM Status: Acute Qualifiers: Sepsis type: Streptococcus, other Sepsis acute organ dysfunction status: without acute organ dysfunction Qualified Code(s): A40.8 - Other streptococcal sepsis (2) Lactic acidosis Code(s): E87.2 - ACIDOSIS Status: Acute (3) Obstructive sleep apnea Code(s): G47.33 - OBSTRUCTIVE SLEEP APNEA (ADULT) (PEDIATRIC) Status: Acute (4) Obesity Code(s): E66.9 - OBESITY, UNSPECIFIED Status: Chronic Qualifiers: Obesity type: due to excess calories (5) Cellulitis Code(s): L03.90 - CELLULITIS, UNSPECIFIED Status: Acute Qualifiers: Site of cellulitis of extremity: lower extremity Laterality: right (6) Dyslipidemia Code(s): E78.5 - HYPERLIPIDEMIA, UNSPECIFIED Status: Chronic (7) HTN (hypertension) Code(s): I10 - ESSENTIAL (PRIMARY) HYPERTENSION Status: Chronic - Plan transition to po levaquin- covers both staph and strep cont Anticag, diltiazem, coreg, dogoxin for AF DC planning
[2018-12-16] MEDS: Ferrous Sulfate 325 MG TAB PO SCH ×2 (08:36→20:25)
[2018-12-16] MEDS: Carvedilol 6.25 MG TAB PO SCH ×2 (08:36→20:24)
[2018-12-16] MEDS: Famotidine 20 MG TAB PO SCH ×2 (08:36→20:25)
--- NOTE | 2018-12-16 10:08 | PRG ---
DATE OF SERVICE: 12/16/2018 SUBJECTIVE: Ms. Spencer continues to complain of shortness of breath. She is off the BiPAP. She is eating. OBJECTIVE: VITAL SIGNS: Temperature 98.3, pulse 87, respirations 20, O2 saturation 93%, and blood pressure 143/87. HEENT: Unremarkable. NECK: No adenopathy or JVD. CHEST: Diminished breath sounds, but clear. CARDIAC: S1 and S2. Regular. ABDOMEN: Soft. EXTREMITIES: Edematous. LABORATORY DATA: White blood cell count 10.3, hematocrit 30.8, and platelet count 217. Sodium 138, potassium 3, BUN 14, creatinine 0.6, and glucose 108. ASSESSMENT: The patient came in with cellulitis. She seems fluid overload. Her respiratory status also being hurt by her morbid obesity. PLAN: I would continue diuresis, but otherwise, I think she is probably close to her baseline. I told her she needed to lose weight, but she really was not happy with me telling her that. I have nothing further to offer in this case. We will sign off. Job ID: [id number]
[2018-12-16] MEDS: Levalbuterol HCl 0.63 MG/3 ML NEB NEB PRN (10:12)
--- NOTE | 2018-12-16 13:49 | PRG ---
DATE OF SERVICE: 12/16/2018 SUBJECTIVE: Ms. Spencer is in bed, resting comfortably. OBJECTIVE: VITAL SIGNS: Blood pressure 119/87 and pulse in 80s, it is irregular. LUNGS: Clear. CARDIAC: Distant, but irregularly irregular. ABDOMEN: Obese and nontender. EXTREMITIES: No edema. ASSESSMENT: 1. Atrial fibrillation, persistent. 2. History of diastolic heart failure. 3. Severe morbid obesity with a BMI of 66. PLAN: 1. Continue rate control. 2. Continue Xarelto. Job ID: [id number]
[2018-12-16] MEDS: LURASIDONE 20 MG PO SCH (16:21)
[2018-12-16] MEDS: Atorvastatin Calcium 40 MG TAB PO SCH (20:23)
[2018-12-16] MEDS: hydrOXYzine 25 MG TAB PO SCH (20:27)
[2018-12-16] MEDS: Montelukast Sodium 10 mg Tablet PO SCH (20:27)
[2018-12-17] MEDS: Cyanocobalamin (Vitamin B-12) 1,000 MCG TAB PO SCH (09:17)
[2018-12-17] MEDS: Carvedilol 6.25 MG TAB PO SCH ×2 (09:17→21:14)
[2018-12-17] MEDS: Digoxin 0.125 MG TAB PO SCH (09:17)
[2018-12-17] MEDS: Ferrous Sulfate 325 MG TAB PO SCH ×2 (09:18→21:15)
[2018-12-17] MEDS: Gabapentin 400 MG CAP PO SCH ×2 (09:18→21:14)
[2018-12-17] MEDS: Loratadine 10 MG TAB PO SCH (09:18)
[2018-12-17] MEDS: Furosemide 80 MG TAB PO SCH ×2 (09:18→21:15)
[2018-12-17] MEDS: Famotidine 20 MG TAB PO SCH ×2 (09:19→21:16)
[2018-12-17] MEDS: OXcarbazepine 300 MG TAB PO SCH ×2 (09:19→21:13)
[2018-12-17] MEDS: Rivaroxaban 10 MG TAB PO SCH (09:19)
--- NOTE | 2018-12-17 09:35 | PRG ---
DATE OF SERVICE: 12/17/2018 SUBJECTIVE: Ms. Spencer has a CPAP in place. She is resting comfortably. OBJECTIVE: VITAL SIGNS: Her blood pressure 163/96 and pulse 80, it is irregular. LUNGS: Clear. CARDIAC: Irregularly irregular. ASSESSMENT: Chronic atrial fibrillation, rate controlled. PLAN: 1. She is on reduced dose digoxin. 2. She is on diltiazem. 3. Carvedilol. 4. Rivaroxaban. 5. Ultimately, will need cardioversion if she stays in fibrillation. Job ID: [id number]
--- NOTE | 2018-12-17 11:52 | PDOC.HOSPP ---
- Subjective Encounter Date: 12/17/18 Encounter Time: 11:50 Subjective: on O2, declines REHAB, etc - Objective Vital Signs & Weight: Vital Signs (12 hours) Temp Pulse Resp BP Pulse Ox 12/17/18 09:17 86 12/17/18 08:20 98.3 F 84 20 163/96 H 96 12/17/18 07:59 95 12/17/18 04:00 97.7 F 68 20 139/86 95 Weight Admit Weight 426 lb 8 oz Weight 406 lb 0.6 oz Most Recent Monitor Data Heart Rate from ECG 91 NIBP 165/111 NIBP BP-Mean 129 Respiration from ECG 23 SpO2 90 I&O: 12/16/18 12/17/18 12/18/18 06:59 06:59 06:59 Intake Total 1999 4380 Output Total 1999 6400 Balance 0 -2020 Result Diagrams: 12/16/18 05:12 12/16/18 05:12 ROS - Medication Medications: Active Medications Generic Name Dose Route Start Last Admin Trade Name Freq PRN Reason Stop Dose Admin Hydrocodone Bitart/Acetaminophen 1 tab 12/11/18 18:37 12/15/18 12:13 [place] 5/325 PO 1 tab Q4H PRN Administration Moderate Pain (4-6) Atorvastatin Calcium 40 mg 12/11/18 21:00 12/16/18 20:23 Lipitor PO 40 mg HS SKYLER Administration Carvedilol 12.5 mg 12/13/18 21:00 12/17/18 09:17 Coreg PO 12.5 mg BID SKYLER Administration Cyanocobalamin 1,000 mcg 12/14/18 09:00 12/17/18 09:17 Vitamin B-12 PO 1,000 mcg DAILY SKYLER Administration Digoxin 0.125 mg 12/17/18 09:00 12/17/18 09:17 Lanoxin PO 0.125 mg DAILY SKYLER Administration Diltiazem HCl 60 mg 12/16/18 09:00 12/17/18 09:18 Cardizem PO 60 mg BID SKYLER Administration Famotidine 20 mg 12/11/18 21:00 12/17/18 09:19 Pepcid PO Not Given BID SKYLER Ferrous Sulfate 325 mg 12/13/18 21:00 12/17/18 09:18 Feosol PO 325 mg BID SKYLER Administration Furosemide 80 mg 12/13/18 21:00 12/17/18 09:18 Lasix PO 80 mg BID SKYLER Administration Gabapentin 800 mg 12/13/18 21:00 12/16/18 20:26 Neurontin PO 800 mg HS SKYLER Administration Gabapentin 400 mg 12/14/18 09:00 12/17/18 09:18 Neurontin PO 400 mg QAM SKYLER Administration Hydralazine HCl 10 mg 12/13/18 10:51 12/15/18 23:49 Apresoline SLOW IVP 10 mg Q4H PRN Administration SBP > 185, DBP > 100 Hydroxyzine HCl 100 mg 12/13/18 21:00 12/16/18 20:27 Atarax PO 100 mg HS SKYLER Administration Levalbuterol HCl 0.63 mg 12/15/18 21:18 12/16/18 10:12 Xopenex NEB 0.63 mg [id number] PRN Administration SOB &/or Wheezing Levofloxacin 750 mg 12/17/18 06:00 12/17/18 06:36 Levaquin PO 750 mg 0600 SKYLER Administration Loratadine 10 mg 12/12/18 09:00 12/17/18 09:18 Claritin PO 10 mg DAILY SKYLER Administration Montelukast Sodium 10 mg 12/11/18 21:00 12/16/18 20:27 Singulair PO 10 mg HS SKYLER Administration Oxcarbazepine 600 mg 12/13/18 21:00 12/17/18 09:19 Trileptal PO 600 mg BID SKYLER Administration Lurasidone [Latuda] 0 each 12/13/18 17:00 12/16/18 16:21 20 Mg PO 1 each QPM-WM SKYLER Administration Rivaroxaban 20 mg 12/12/18 09:00 12/17/18 09:19 Xarelto PO 20 mg DAILY SKYLER Administration Simethicone 80 mg 12/13/18 21:02 12/14/18 09:05 Mylicon Chewable PO 80 mg PCHS PRN Administration Gas Pain Sodium Chloride 10 ml 12/14/18 21:00 12/17/18 09:19 Flush - Normal Saline IVF 10 ml Q12HR SKYLER Administration Sodium Chloride 10 ml 12/14/18 10:14 12/15/18 03:30 Flush - Normal Saline IVF 10 ml PRN PRN Administration Saline Flush - Exam awake alert Neck: no JVD Heart: no murmur, irregular Respiratory: CTAB Gastrointestinal: soft, non-tender, non-distended, normal bowel sounds Extremities: 1+ LE edema Hosp A/P (1) Cellulitis Code(s): L03.90 - CELLULITIS, UNSPECIFIED Status: Acute Qualifiers: Site of cellulitis of extremity: lower extremity Laterality: right (2) Sepsis Code(s): A41.9 - SEPSIS, UNSPECIFIED ORGANISM Status: Resolved Qualifiers: Sepsis type: Streptococcus, other Sepsis acute organ dysfunction status: without acute organ dysfunction Qualified Code(s): A40.8 - Other streptococcal sepsis (3) Lactic acidosis Code(s): E87.2 - ACIDOSIS Status: Resolved (4) Atrial fibrillation with rapid ventricular response Code(s): I48.91 - UNSPECIFIED ATRIAL FIBRILLATION Status: Acute (5) Obstructive sleep apnea Code(s): G47.33 - OBSTRUCTIVE SLEEP APNEA (ADULT) (PEDIATRIC) Status: Acute (6) Obesity Code(s): E66.9 - OBESITY, UNSPECIFIED Status: Chronic Qualifiers: Obesity type: due to excess calories (7) Dyslipidemia Code(s): E78.5 - HYPERLIPIDEMIA, UNSPECIFIED Status: Chronic (8) HTN (hypertension) Code(s): I10 - ESSENTIAL (PRIMARY) HYPERTENSION Status: Chronic Qualifiers: Hypertension type: essential hypertension Qualified Code(s): I10 - Essential (primary) hypertension - Plan transition to po levaquin- covers both staph and strep cont Anticag, diltiazem, coreg, dogoxin for AF DC planning, will consult CM for outpt O2 as she dlines, REHAB, etc
[2018-12-17] MEDS: LURASIDONE 20 MG PO SCH (17:56)
[2018-12-17] MEDS: Montelukast Sodium 10 mg Tablet PO SCH (21:16)
[2018-12-17] MEDS: hydrOXYzine 25 MG TAB PO SCH (21:16)
[2018-12-17] MEDS: Atorvastatin Calcium 20 MG TAB PO SCH (21:34)
[2018-12-18] MEDS: Atorvastatin Calcium 40 MG TAB PO SCH (07:46)
[2018-12-18] MEDS: Cyanocobalamin (Vitamin B-12) 1,000 MCG TAB PO SCH (09:26)
[2018-12-18] MEDS: Carvedilol 6.25 MG TAB PO SCH ×2 (09:26→21:22)
[2018-12-18] MEDS: Digoxin 0.125 MG TAB PO SCH (09:26)
[2018-12-18] MEDS: Loratadine 10 MG TAB PO SCH (09:27)
[2018-12-18] MEDS: Furosemide 80 MG TAB PO SCH ×2 (09:27→21:22)
[2018-12-18] MEDS: Ferrous Sulfate 325 MG TAB PO SCH ×2 (09:27→21:22)
[2018-12-18] MEDS: Rivaroxaban 10 MG TAB PO SCH (09:27)
[2018-12-18] MEDS: OXcarbazepine 300 MG TAB PO SCH ×2 (09:27→21:20)
[2018-12-18] MEDS: Famotidine 20 MG TAB PO SCH ×2 (09:28→21:22)
[2018-12-18] MEDS: Gabapentin 400 MG CAP PO SCH ×2 (09:28→21:21)
--- NOTE | 2018-12-18 10:14 | DIS ---
DATE OF ADMISSION: 12/11/2018 DATE OF DISCHARGE: 12/17/2018 PRIMARY CARE CLINIC: [facility]. DISCHARGE DISPOSITION: Home. FINAL DIAGNOSES: Sepsis syndrome, cellulitis of the right lower leg, atrial fibrillation with rapid ventricular response, obstructive sleep apnea, obesity hypoventilation syndrome, hypertension, history of deep vein thrombosis in the past, dyslipidemia. DISCHARGE MEDICATIONS: 1. Levaquin 750 mg p.o. daily for 7 days. 2. Cardizem 60 mg p.o. b.i.d. 3. Digoxin 0.125 mg p.o. daily. 4. K-Dur 20 mEq p.o. b.i.d. MEDICINES DISCONTINUED: 1. Nifedipine. OLD MEDICINES: 1. Singulair 10 mg a day. 2. Xarelto 20 mg a day. 3. Lipitor 40 mg a day. 4. Zyrtec 10 mg at night. 5. Latuda 20 mg a day. 6. Oxcarbazepine 600 mg twice a day. 7. Ferrous sulfate 325 mg twice a day. 8. Lasix 80 mg twice a day. 9. Gabapentin 400 mg 3 times a day. 10. Coreg 12.5 mg p.o. b.i.d. 11. Vitamin B12 orally. 12. Hydroxyzine 100 mg p.o. at bedtime. ALLERGIES: TO ALBUTEROL AND BIAXIN. DIET: Heart healthy. PENDING AT TIME OF DISCHARGE: Nothing. CODE STATUS: Full. HOSPITAL COURSE: The patient was admitted to the [facility] through [place] [facility]. The patient presented with fever, shortness of breath, chronic bilateral lymphedema. She was noted to have cellulitis on the right lower extremity extending proximally to the mid-thigh. Her laboratory revealed a white count of 18.4, hemoglobin 13.3, and platelet count of 179,000. She had a marked left shift. Sodium was 135, potassium 4.1, chloride 102, CO2 of 19, BUN 22, creatinine 1.03. Lactic acid was elevated at 3.2. Chest x-ray was unremarkable. Venous Doppler revealed no deep vein thrombosis. She was put in the hospital with sepsis secondary to cellulitis of the right lower extremity. She also was noted to have atrial fibrillation with rapid ventricular response. She had acute respiratory insufficiency at that time with a decreased O2. She was placed on IV antibiotics with vancomycin and Zosyn and clindamycin. Blood cultures and wound drainage were obtained. Her nifedipine was held. She was started on Cardizem for rate control. CPAP was started at night. During her hospital stay, echocardiogram showed normal ventricular function. On antibiotics, her white count dropped rapidly from 18.4 to 10.9 to 10.3. Her erythema in her right lower leg resolved. Blood cultures were negative. Wound culture grew strep and Staph, both sensitive to quinolones. She was transitioned to Levaquin. She continued to have a decreased O2. Chest remained clear. Chest x-ray revealed clear lung darling. No infiltrates. No pulmonary edema. The diagnosis of obesity hypoventilation syndrome was made along with her obstructive sleep apnea. Arrangements have been made for home O2. She is being discharged on the aforementioned medications. She is seen in consultation by Dr. Bladimir Steel. Cardiology recommends no aggressive therapy for atrial fibrillation at this time. Continue rate control and anticoagulation. She is to see her primary care provider in 1 week for followup. She should call Dr. Steel's office to obtain followup for her atrial fibrillation. TIME SPENT: 40 minutes spent in preparing this discharge. Job ID: [id number]
[2018-12-18] MEDS ORDERED: Potassium Chloride 20 MEQ TAB PO SCH (13:45)
[2018-12-18] MEDS ORDERED: Lisinopril 10 MG TAB PO SCH (14:00)
--- NOTE | 2018-12-18 14:05 | PDOC.HOSPP ---
- Subjective Encounter Date: 12/18/18 Encounter Time: 14:02 Subjective: planned DC, doing well - Objective Vital Signs & Weight: Vital Signs (12 hours) Temp Pulse Resp BP Pulse Ox 12/18/18 12:50 97.9 F 75 18 145/80 H 95 12/18/18 09:26 75 12/18/18 07:38 97.0 F L 75 18 170/96 H 99 12/18/18 04:00 98 F 81 16 138/93 H 97 Weight Admit Weight 426 lb 8 oz Weight 406 lb Most Recent Monitor Data Heart Rate from ECG 91 NIBP 165/111 NIBP BP-Mean 129 Respiration from ECG 23 SpO2 90 I&O: 12/17/18 12/18/18 12/19/18 06:59 06:59 06:59 Intake Total 4380 720 Output Total 6400 2550 Balance -2019 Result Diagrams: 12/16/18 05:12 12/16/18 05:12 ROS - Medication Medications: Active Medications Generic Name Dose Route Start Last Admin Trade Name Freq PRN Reason Stop Dose Admin Hydrocodone Bitart/Acetaminophen 1 tab 12/11/18 18:37 12/15/18 12:13 [place] 5/325 PO 1 tab Q4H PRN Administration Moderate Pain (4-6) Atorvastatin Calcium 40 mg 12/17/18 21:00 12/17/18 21:34 Lipitor PO 40 mg HS SKYLER Administration Carvedilol 12.5 mg 12/13/18 21:00 12/18/18 09:26 Coreg PO 12.5 mg BID SKYLER Administration Cyanocobalamin 1,000 mcg 12/14/18 09:00 12/18/18 09:26 Vitamin B-12 PO 1,000 mcg DAILY SKYLER Administration Diltiazem HCl 60 mg 12/16/18 09:00 12/18/18 09:26 Cardizem PO 60 mg BID SKYLER Administration Famotidine 20 mg 12/11/18 21:00 12/18/18 09:28 Pepcid PO Not Given BID SKYLER Ferrous Sulfate 325 mg 12/13/18 21:00 12/18/18 09:27 Feosol PO 325 mg BID SKYLER Administration Furosemide 80 mg 12/13/18 21:00 12/18/18 09:27 Lasix PO 80 mg BID SKYLER Administration Gabapentin 800 mg 12/13/18 21:00 12/17/18 21:14 Neurontin PO 800 mg HS SKYLER Administration Gabapentin 400 mg 12/14/18 09:00 12/18/18 09:28 Neurontin PO 400 mg QAM SKYLER Administration Hydralazine HCl 10 mg 12/13/18 10:51 12/15/18 23:49 Apresoline SLOW IVP 10 mg Q4H PRN Administration SBP > 185, DBP > 100 Hydroxyzine HCl 100 mg 12/13/18 21:00 12/17/18 21:16 Atarax PO 100 mg HS SKYLER Administration Levalbuterol HCl 0.63 mg 12/15/18 21:18 12/16/18 10:12 Xopenex NEB 0.63 mg [id number] PRN Administration SOB &/or Wheezing Levofloxacin 750 mg 12/17/18 06:00 12/18/18 06:44 Levaquin PO 750 mg 0600 SKYLER Administration Loratadine 10 mg 12/12/18 09:00 12/18/18 09:27 Claritin PO 10 mg DAILY SKYLER Administration Montelukast Sodium 10 mg 12/11/18 21:00 12/17/18 21:16 Singulair PO 10 mg HS SKYLER Administration Oxcarbazepine 600 mg 12/13/18 21:00 12/18/18 09:27 Trileptal PO 600 mg BID SKYLER Administration Lurasidone [Latuda] 0 each 12/13/18 17:00 12/17/18 17:56 20 Mg PO 1 each QPM-WM SKYLER Administration Rivaroxaban 20 mg 12/12/18 09:00 12/18/18 09:27 Xarelto PO 20 mg DAILY SKYLER Administration Simethicone 80 mg 12/13/18 21:02 12/14/18 09:05 Mylicon Chewable PO 80 mg PCHS PRN Administration Gas Pain Sodium Chloride 10 ml 12/14/18 21:00 12/18/18 09:28 Flush - Normal Saline IVF 10 ml Q12HR SKYLER Administration Sodium Chloride 10 ml 12/14/18 10:14 12/15/18 03:30 Flush - Normal Saline IVF 10 ml PRN PRN Administration Saline Flush - Exam awake alert Neck: no JVD Heart: no murmur, irregular Respiratory: CTAB Gastrointestinal: soft, normal bowel sounds Extremities: 2+ LE edema Hosp A/P (1) Cellulitis Code(s): L03.90 - CELLULITIS, UNSPECIFIED Status: Acute Qualifiers: Site of cellulitis of extremity: lower extremity Laterality: right (2) Sepsis Code(s): A41.9 - SEPSIS, UNSPECIFIED ORGANISM Status: Resolved Qualifiers: Sepsis type: Streptococcus, other Sepsis acute organ dysfunction status: without acute organ dysfunction Qualified Code(s): A40.8 - Other streptococcal sepsis (3) Lactic acidosis Code(s): E87.2 - ACIDOSIS Status: Resolved (4) Atrial fibrillation with rapid ventricular response Code(s): I48.91 - UNSPECIFIED ATRIAL FIBRILLATION Status: Acute (5) Obstructive sleep apnea Code(s): G47.33 - OBSTRUCTIVE SLEEP APNEA (ADULT) (PEDIATRIC) Status: Acute (6) Obesity Code(s): E66.9 - OBESITY, UNSPECIFIED Status: Chronic Qualifiers: Obesity type: due to excess calories (7) Dyslipidemia Code(s): E78.5 - HYPERLIPIDEMIA, UNSPECIFIED Status: Chronic (8) HTN (hypertension) Code(s): I10 - ESSENTIAL (PRIMARY) HYPERTENSION Status: Chronic Qualifiers: Hypertension type: essential hypertension Qualified Code(s): I10 - Essential (primary) hypertension - Plan stable on current meds DC held as Cardiology plans Cardioversion 12/19
[2018-12-18 14:15] VITALS: BMI 65.5
[2018-12-18] MEDS: LURASIDONE 20 MG PO SCH (17:34)
--- NOTE | 2018-12-18 18:36 | PRG ---
DATE OF SERVICE: 12/18/2018 SUBJECTIVE: Ms. Spencer remains in atrial fibrillation. Her breathing is about the same. She gets very short of breath even trying to move around the bed due to her morbid obesity. OBJECTIVE: VITAL SIGNS: Her blood pressure 172/98, pulse 80. LUNGS: Clear. CARDIAC: Normal S1, normal S2. ABDOMEN: Severe obesity. ASSESSMENT: 1. Persistent atrial fibrillation. 2. Severe morbid obesity, BMI 65. 3. Hypertension. 4. Hypokalemia. PLAN: 1. Replete potassium. 2. Proceed to do cardioversion tomorrow. She said she has missed, she thinks, at least one or two doses of Xarelto in the last few weeks. We will proceed with transesophageal echo. 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 I explained to her that it may not be successful in terms of getting her out of fibrillation, but it is worth an attempt and discussed the risk of stroke, injury to the mouth or esophagus. She understands and wished to proceed. Job ID: [id number]
[2018-12-18 18:53] LABS: Anion Gap 14 mmol/L (10-20); BUN (Urea Nitrogen) 14 mg/dL (9.8-20.1); Calc. Creatinine Clearance 253 mL/min (70-130); Carbon Dioxide 33 mmol/L (22-29); Chloride 97 mmol/L (98-107); Estimated GFR-MDRD 82; Glucose 100 mg/dL (70-105); Potassium 3.7 mmol/L (3.5-5.1); Sodium 140 mmol/L (136-145)
[2018-12-18] MEDS: Montelukast Sodium 10 mg Tablet PO SCH (21:18)
[2018-12-18] MEDS: hydrOXYzine 25 MG TAB PO SCH ×2 (21:18→21:20)
[2018-12-18] MEDS: Atorvastatin Calcium 20 MG TAB PO SCH (21:22)
[2018-12-18] MEDS: HYDROcodone/Acetaminophen 5/325 mg Tablet PO PRN (22:35)
[2018-12-18] MEDS: Levalbuterol HCl 0.63 MG/3 ML NEB NEB PRN (23:46)
[2018-12-19] MEDS ORDERED: PROPOFOL 40 ML ONE (07:18)
[2018-12-19] MEDS ORDERED: Potassium Chloride 20 MEQ TAB PO SCH (08:45)
[2018-12-19] MEDS ORDERED: Lisinopril 10 MG TAB PO SCH ×2 (09:00)
[2018-12-19] MEDS ORDERED: Lisinopril 20 MG TAB PO SCH (09:00)
[2018-12-19] MEDS ORDERED: Digoxin 0.125 MG TAB PO SCH (09:00)
--- NOTE | 2018-12-19 09:21 | PRG ---
DATE OF SERVICE: 12/19/2018 SUBJECTIVE: Ms. Spencer was brought to the post cath area today. An attempt was made at cardioversion. She was given 360 joules of energy with the pads in place. This did not convert her to sinus rhythm. Then, I took one of the paddles and pressed very firmly in the anterior position. I again gave her 360 joules, did not convert to sinus rhythm, and then we reposition the patch in the anterior portion and again pressed firmly the paddle on top of that, again did not convert to sinus rhythm. OBJECTIVE: LUNGS: Clear. CARDIAC: Irregular. ABDOMEN: Obese. Nontender. EXTREMITIES: Mild edema. ASSESSMENT: 1. Atrial fibrillation, appears likely to be permanent. 2. Unsuccessful cardioversion, secondary to morbid obesity with increased resistance. 3. Diastolic heart failure. PLAN: 1. Maintained on anticoagulant long-term. 2. Carvedilol 12.5 mg twice a day. 3. Resume digoxin 0.125 mg a day. 4. Lisinopril and potassium. 5. Long-term prognosis unfortunately is poor in this patient with severe morbid obesity with BMI of 65.66. Job ID: [id number]
[2018-12-19] MEDS: Ferrous Sulfate 325 MG TAB PO SCH (09:33)
[2018-12-19] MEDS: Famotidine 20 MG TAB PO SCH (09:34)
[2018-12-19] MEDS: Rivaroxaban 10 MG TAB PO SCH (09:34)
[2018-12-19] MEDS: Furosemide 80 MG TAB PO SCH ×2 (09:34→09:43)
[2018-12-19] MEDS: Carvedilol 6.25 MG TAB PO SCH (09:34)
[2018-12-19] MEDS: Loratadine 10 MG TAB PO SCH (09:34)
[2018-12-19] MEDS: OXcarbazepine 300 MG TAB PO SCH (09:35)
[2018-12-19] MEDS: Gabapentin 400 MG CAP PO SCH (09:35)
[2018-12-19] MEDS: Cyanocobalamin (Vitamin B-12) 1,000 MCG TAB PO SCH (09:36)
--- NOTE | 2018-12-19 09:49 | DIS ---
DATE OF ADMISSION: 12/11/2018 DATE OF DISCHARGE: 12/18/2018 ADDENDUM: PRIMARY CARE PROVIDER: [facility]. The patient's discharge was arranged yesterday. It was held for until today for elective cardioversion. The elective cardioversion failed. The patient is still stable, in chronic atrial fibrillation, everything in terms of diagnoses, etc from previous discharge summary are correct. The only addition is elective cardioversion unsuccessful. Job ID: [id number]
--- NOTE | 2018-12-19 10:26 | OP ---
DATE OF PROCEDURE: 12/19/2018 PROCEDURE PERFORMED: Transesophageal echocardiogram. INDICATION: A 53-year-old woman with paroxysmal atrial fibrillation. DESCRIPTION OF PROCEDURE: The patient was taken to the PACU. The patient was sedated by Anesthesiology. A transesophageal probe was placed into the distal esophagus and stomach. Echocardiographic images were obtained. FINDINGS: 1. Normal left ventricular systolic function. 2. Left ventricle is not dilated. 3. Normal mitral and aortic valves. 4. Mild tricuspid regurgitation. 5. No thrombus is noted in the left atrium. The left atrial appendage was not well visualized. 6. Atherosclerotic debris in the descending aorta. IMPRESSION: No formed thrombus noted in the left atrium. Job ID: [id number] MTDD
[2018-12-19] MEDS ORDERED: PROPOFOL 200 MG/20 ML VIAL ONE (10:29)
[2018-12-19 17:07] VITALS: BP 136/80; TEMP 98
[2018-12-19] MEDS: LURASIDONE 20 MG PO SCH (17:09)
[2018-12-20] MEDS ORDERED: Potassium Chloride 20 MEQ TAB PO SCH (08:00)
--- NOTE | 2018-12-21 05:47 | PQF ---
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 Clinical indicators are provided on the bottom of this form for your review Please check appropriate box(s): [ ] Acute Respiratory Failure: [ ] with Hypoxia[ ] with Hypercapnia [ ] Acute On Chronic Respiratory Failure: [ ] with Hypoxia [ ] with Hypercapnia [ ] Acute Respiratory Failure due to: (etiology) [ ] ARDS (Acute Respiratory Distress Syndrome) [ ] Chronic Respiratory Failure only [ ] with Hypoxia [ ] with Hypercapnia [ ] Hypoxia [ ] Other diagnosis [ ] Unable to determine In addition, please specify: Present on Admission (POA): [ ] Yes [ ] No [ ] Unable to determine For continuity of documentation, please document condition throughout progress notes and discharge summary. Thank You. CLINICAL INDICATORS - SIGNS / SYMPTOMS / LABS sob - Documented in H&P on 12/11/18 by ALBERTO LACEY Acute respiratory insufficiency - Documented in H&P on 12/11/18 by ALBERTO LACEY Hypoxemic secondary to fluid overload and her morbid obesity - Documented in progress notes on 12/19/18 by Meng Pagan MD O2 sats in the high 80s - Documented in progress notes on 12/14/18 by Meng Pagan MD O2 saturation 95% on BiPAP - Documented in progress notes on 12/15/18 by Meng Pagan MD respiratory status aalso being hurt by her morbid obesity - Documented in progress notes on 12/16/18 by Meng Pagan MD O2 sat 94 on 12/17 - Documented in Vitals signs RISK FACTORS Chronic diastolic heart failure - Documented in H&P on 12/11/18 by ALBERTO LACEY Fluid overload - Documented in progress notes on 12/15/18 by Meng Pagan MD TREATMENTS: Oxygen supplementation as needed will provided - Documented in H&P on 12/11/18 by ALBERTO LACEY low flow oxygen - Documented in progress notes on 12/14/18 by Meng Pagan MD Continue observation in IMCU - Documented in progress notes on 12/19/18 by Meng Pagan MD O2 Delivery Nasal cannula on 12/17- Documented in Vitals signs (This form is maintained as a part of the permanent medical record) 2014 [employer]. All Rights Reserved [email or web address] [not provided] THIS SHOULD GO TO DOCTOR THAT MANAGED PATIENT MTDD
--- NOTE | 2018-12-21 10:27 | EKG ---
Test Reason : Blood Pressure : / mmHG Vent. Rate : 153 BPM Atrial Rate : 394 BPM P-R Int : 000 ms QRS Dur : 084 ms QT Int : 302 ms P-R-T Axes : 000 026 -50 degrees QTc Int : 482 ms Atrial fibrillation with rapid ventricular response Abnormal ECG Confirmed by STAR GR DO ([id number]), online editor ANKIT BO ([id number]) on 12/21/2018 10:26:37 AM Referred By: Confirmed By:STAR GR DO
--- NOTE | 2018-12-21 16:24 | OP ---
DATE OF PROCEDURE: 12/19/18 SURGEON: Geovanni Murillo M.D. PROCEDURE: Cardioversion attempted. The patient is brought to the Recovery Room in the fasting state. She was sedated. Transesophageal ec ho did not show any evidence of thrombus although her left atrial appendage appeared very small. The patient had been on Xarelto for three weeks. She said she may have missed one or two doses only. We did not see thrombus on the transesophageal echo. The patient was given 360 joules synchronized energy with the patches in place. Did not convert to si nus rhythm. Therefore she was given another 360 joules with firm pressure with the paddle and did not convert to sinus rhythm. Repositioned the patch. Again using firm pressure with the paddle in the an terior portion did not convert to sinus rhythm. CONCLUSIONS: 1. Atrial fibrillation. 2. Unsuccessful cardioversion secondary to morbid obesity with increased resistance.
--- NOTE | 2018-12-27 00:53 | PQF ---
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 Clinical indicators are provided on the bottom of this form for your review Please check appropriate box(s): [ x ] Acute Respiratory Failure: [ x with Hypoxia[ ] with Hypercapnia [ ] Acute On Chronic Respiratory Failure: [ ] with Hypoxia [ ] with Hypercapnia [ ] Acute Respiratory Failure due to: (etiology) [ ] ARDS (Acute Respiratory Distress Syndrome) [ ] Chronic Respiratory Failure only [ ] with Hypoxia [ ] with Hypercapnia [ ] Hypoxia [ ] Other diagnosis [ ] Unable to determine In addition, please specify: Present on Admission (POA): [ x] Yes [ ] No [ ] Unable to determine For continuity of documentation, please document condition throughout progress notes and discharge summary. Thank You. CLINICAL INDICATORS - SIGNS / SYMPTOMS / LABS SOB - Documented in H&P on 12/11 by ALBERTO LACEY Hypoxemic secondary to fluid overload and her morbid obesity -Documented in Progress notes on 12/19 by Meng Baptiste MD O2 sats in the high 80s - Documented in Progress notes on 12/14 by Meng Baptiste MD O2 saturation 95% on BiPAP - Documented in Progress notes on 12/15 by Meng Baptiste MD Respiratory status also being hyrt by her morbid obesity - Documented in Progress notes on 12/16 by Meng Baptiste MD O2 sats 94 on 12/17 - Documetned in Vitals signs RISK FACTORS Chronic Diastolic heart failure - Documented in H&P on 12/11 by ALBERTO LACEY Fluid verload - Documented in Progress notes on 12/15 by Meng Baptiste MD Morbid obesity - Documented in H&P on 12/11 by ALBERTO LACEY TREATMENTS: Oxygen supplementation as needed will provided - Documented in H&P on 12/11 by ALBERTO LACEY Low flow oxygen - Documented in Progress notes on 12/14 by Meng Baptiste MD Continue observation in IMCU - Documented in Progress notes on 12/19 by Meng Baptiste MD O2 delivery nasal cannula no 12/17 - Documetned in Vital signs (This information is maintained as a part of the permanent medical record) 2014 [employer]. All Right Reserved [email or web address] [email or web address] [not provided] MTDD
== END 2018-12-19 19:25 | disposition home or self-care (01) | DRG 871 ==
LOC: ERS 14:11 → IMCU/EMU 20:06 → 2NO 12-14 13:44
PROVIDERS: ADMIT Internal Medicine Nephrology; ATTEND Internal Medicine Nephrology
PROC: B24BZZ4 Ultrasonography of Heart with Aorta, Transesophageal (ICD-10-PCS; principal; 2018-12-19)
DX: A40.8 Other streptococcal sepsis (principal); J96.01 Acute respiratory failure with hypoxia; I50.32 Chronic diastolic (congestive) heart failure; L03.115 Cellulitis of right lower limb; Z68.44 Body mass index [BMI] 60.0-69.9, adult; E87.2 Acidosis; J45.909 Unspecified asthma, uncomplicated; G47.33 Obstructive sleep apnea (adult) (pediatric); E66.01 Morbid (severe) obesity due to excess calories; B37.2 Candidiasis of skin and nail; F31.9 Bipolar disorder, unspecified; E78.5 Hyperlipidemia, unspecified; I48.2 Chronic atrial fibrillation; Z88.8 Allergy status to other drugs, medicaments and biological substances; Z98.51 Tubal ligation status; Z98.890 Other specified postprocedural states; Z79.899 Other long term (current) drug therapy; Z86.718 Personal history of other venous thrombosis and embolism; Z79.01 Long term (current) use of anticoagulants; Z99.81 Dependence on supplemental oxygen; I11.0 Hypertensive heart disease with heart failure; R65.20 Severe sepsis without septic shock; E87.6 Hypokalemia
CPT/HCPCS: 36415; 51701; 71045; 71046; 80048; 80053; 80202; 81003; 81015; 82330; 82803; 83605; 83880; 84484; 85025; 85379; 87040; 87070; 87077; 87086; 87186; 87205; 87804; 92960; 93005; 93306; 93312; 94640; 94660; 94760; 96361; 96365; 96366; 96367; 96375; J0360; J1160; J1956; J2270; J2405; J2543; J2704; J3370; J3490; J7050; J7614

== ENCOUNTER 2019-02-07 22:00 | Inpatient (IN) | payer OTHER ==
[2019-02-07] MEDS ORDERED: Aspirin Chewable 81 MG TAB ONE (22:41)
[2019-02-07] MEDS ORDERED: Nitroglycerin 0.4 MG TAB 1 EACH ONE (22:41)
--- NOTE | 2019-02-07 22:45 | RAD ---
Portable chest: HISTORY: Chest pain COMPARISON: 12/13/2018 FINDINGS: Lung darling are clear. Cardiomegaly again noted, stable. Vascularity is normal. Visualized osseous structures unremarkable. IMPRESSION: No acute finding
[2019-02-07 22:46] LABS: #Basophils 0.1 thou/uL (0.0-0.2); #Eosinphils 0.2 thou/uL (0.0-0.7); #Lymphocytes 2.2 thou/uL (1.20-3.40); #Monocytes 0.8 thou/uL (0.11-0.59); #Neutrophils 5.2 thou/uL (1.40-6.50); %Eosinophils 2.5 % (0.0-10.0); %Lymphocytes 25.6 % (21.0-51.0); %Monocytes 9.6 % (0.0-10.0); %Neutrophils 61.3 % (42.0-75.0); Hemoglobin 13.4 g/dL (12.0-16.0); Mean Corpuscular HGB CONC 31.6 g/dL (32.0-36.0); Mean Corpuscular Hemoglobin 27.6 pg (27.0-31.0); Mean Corpuscular Volume 87.3 fL (78.0-98.0); Mean Platelet Volume 7.8 fL (7.4-10.4); Platelet Count 226 thou/uL (130-400); RBC Distribution Width 14.4 % (11.5-14.5); Red Blood Cell (RBC) Count 4.87 mill/uL (4.20-5.40); White Blood Cell (WBC) Count 8.4 thou/uL (4.8-10.8)
[2019-02-07 23:09] LABS: ALT (SGPT) 18 U/L (8-55); AST (SGOT) 29 U/L (5-34); Alkaline Phosphatase 115 U/L (40-110); Anion Gap 16 mmol/L (10-20); BUN (Urea Nitrogen) 18 mg/dL (9.8-20.1); Bilirubin, Total 0.4 mg/dL (0.2-1.2); Calc. Creatinine Clearance 0 mL/min (70-130); Calcium 9.3 mg/dL (7.8-10.44); Carbon Dioxide 21 mmol/L (22-29); Chloride 104 mmol/L (98-107); Estimated GFR-MDRD 72; Globulin 4.1 g/dL (2.4-3.5); Glucose 89 mg/dL (70-105); Protein, Total 8.1 g/dL (6.0-8.3); Sodium 136 mmol/L (136-145)
--- NOTE | 2019-02-07 23:19 | CT ---
CTA chest with contrast: Multiple axial tomograms obtained through the chest following a pulmonary angiogram protocol with mul tiplanar reconstruction and 3-D postprocessing. INDICATIONS: Dyspnea and chest pain. Assess for pulmonary embolus. COMPARISON: None FINDINGS: Pulmonary arteries show adequate opacification. No evidence of pulmonary embolus identified. Thoracic aorta is unremarkable. No evidence of dissection. Mediastinum shows nonspecific lymph nodes. Nonspecific hilar lymph nodes. Lung darling appear clear. No evidence of infiltrate or effusion. Images through the upper abdomen appear unremarkable. Soft tissues of the thorax appear unremarkable. Osseous structures of the thorax appear unremarkable. IMPRESSION: 1. No evidence of pulmonary embolus 2. No acute lung process.
[2019-02-07] MEDS ORDERED: Diltiazem HCl 125 MG, Admixture Fee 1 EACH in Sodium Chloride 0.9% 100 ML IVPB SCH (23:30)
[2019-02-08 01:56] LABS: Troponin I Less than 0.010 ng/mL (< 0.028)
[2019-02-08] MEDS ORDERED: Ondansetron ODT 4 MG TAB SL PRN (03:37)
[2019-02-08] MEDS ORDERED: Acetaminophen 325 MG TAB PO PRN ×2 (03:37→08:18)
[2019-02-08] MEDS ORDERED: Ondansetron PF 4 MG/2 ML Vial IVP PRN ×2 (03:37→08:18)
[2019-02-08 04:40] VITALS: BMI 67.3
[2019-02-08 05:28] LABS: Troponin I Less than 0.010 ng/mL (< 0.028)
[2019-02-08] MEDS ORDERED: Ondansetron ODT 4 MG TAB PO PRN (08:18)
[2019-02-08] MEDS ORDERED: Labetalol HCl 100 MG/20 ML VIAL SLOW IVP PRN (08:39)
[2019-02-08] MEDS ORDERED: Rivaroxaban 10 MG TAB PO SCH (09:00)
[2019-02-08] MEDS ORDERED: Non-Formulary Item 1 EACH (Carvedilol [Coreg] 12.5 MG) PO SCH (09:00)
[2019-02-08] MEDS ORDERED: LURASIDONE 20 MG PO SCH (09:00)
[2019-02-08] MEDS ORDERED: OXCARBAZEPINE 600 MG PO SCH (09:00)
[2019-02-08] MEDS ORDERED: Non-Formulary Item 1 EACH (Rivaroxaban [Xarelto] 20 MG) PO SCH (09:00)
[2019-02-08] MEDS: Gabapentin 400 MG CAP PO SCH ×3 (09:24→20:20)
[2019-02-08] MEDS: OXcarbazepine 300 MG TAB PO SCH ×2 (09:24→21:21)
[2019-02-08] MEDS: Carvedilol 6.25 MG TAB PO SCH ×2 (09:25→20:21)
[2019-02-08] MEDS: Cyanocobalamin (Vitamin B-12) 1,000 MCG TAB PO SCH (09:25)
--- NOTE | 2019-02-08 09:50 | HP ---
PRIMARY CARE PHYSICIAN: Dr. Willian Cuenca. CHIEF COMPLAINT: Chest pain and heart racing. HISTORY OF PRESENT ILLNESS: Ms. Spencer is a pleasant 53-year-old female, who has a history of atrial fibrillation as well as asthma and obstructive sleep apnea. She was recently admitted to our facility back in December for an episode of atrial fibrillation with rapid ventricular response. She was evaluated by Cardiology. At that time, she had an echocardiogram done, which showed a normal ejection fraction of 60% to 65%. There was no significant valvular disease, and her left atrial size was normal. She was managed with digoxin for rate control and was sent home. She said she did fine until Sunday, she started noticing some sharp chest pains in the middle of her chest, it was nonradiating. There was no shortness of breath. No nausea. No vomiting. She describes it as sharp and rated as 6/10. This would come and go and was not in relationship to any exertion. Then, on yesterday she started feeling her heart racing and says it got progressively worse. She did admit that she has had difficulty getting her medication. She says she has been out of her medications since January 23. She blames it on the insurance. She says that her insurance, which is the [facility] Medicaid will only pay for [employer]ite[employer] and the pharmacy had run out of that particular medication, and since then she has not been able to get it. When asked if she can afford the generic without the insurance or a different type of generic, she says she cannot afford any medications. She was told it would be about 20 dollars and she says she cannot afford this. REVIEW OF SYSTEMS: CONSTITUTIONAL: There has been no fevers or chills. No night sweats. No weight loss. HEENT: She denies any headaches. No dizziness. No visual changes. No sore throat, rhinorrhea, or neck pain. No adenopathy. PULMONARY: No hemoptysis. No cough. No wheezing. CARDIOVASCULAR: As in history of present illness. GASTROINTESTINAL: No abdominal pain. No nausea. No vomiting. No change in bowels. GENITOURINARY: She does admit to some urinary frequency, but no dysuria. No hematuria. MUSCULOSKELETAL: No muscle pains, weakness, or joint pains. NEUROLOGIC: No focal weakness or numbness. No seizures. PSYCHIATRIC: No symptoms of anxiety or depression. SKIN AND INTEGUMENT: No skin changes. No rash. PAST MEDICAL HISTORY: Significant for an atrial fibrillation, obesity, pulmonary embolism, asthma, obstructive sleep apnea, chronic diastolic heart failure, lymphedema, and depression. PAST SURGICAL HISTORY: She has had sinus surgery, , bilateral tubal ligation, and a bronchoscopy. ALLERGIES: TO ALBUTEROL AND BIAXIN. SOCIAL HISTORY: She is a nonsmoker and nondrinker. She wishes to be a full code, and she is single. Her daughter is her surrogate decision maker. FAMILY HISTORY: Significant for heart disease, hypertension, and diabetes in her mother. CURRENT MEDICATIONS: Include, 1. Digoxin 0.125 mg daily. 2. Xarelto 20 mg daily. 3. Oxtellar 600 mg extended release twice daily. 4. Singulair 10 mg daily and at bedtime. 5. Latuda 20 mg daily. 6. Gabapentin 400 mg t.i.d. 7. Iron sulfate 325 mg twice daily. 8. Vitamin B12 a 1000 mcg p.o. daily. 9. Zyrtec 10 mg at bedtime. 10. Carvedilol 12.5 mg twice a day. 11. Lipitor 40 mg at bedtime. PHYSICAL EXAMINATION: GENERAL: She is alert and oriented. She appears to be in no acute distress. She is well developed and well nourished. VITAL SIGNS: Her blood pressure initially was 198/149 with a heart rate of 112. More recently, blood pressure was 177/115, heart rate 98, respiratory rate of 19, temperature is 98.6. HEENT: Pupils are equal, round, and reactive. Extraocular muscles are intact. Her sclerae are anicteric. Throat, no erythema, no exudates. NECK: No adenopathy. No bruits. LUNGS: Essentially clear to auscultation. There is no wheezing, no rales, no rhonchi. CARDIOVASCULAR: Her heart rate is irregular, slightly rapid. I do not appreciate any murmurs clicks or rubs. ABDOMEN: Obese. It is soft. She does have some tenderness along the umbilicus. There is no rebound, no guarding. I cannot appreciate any organomegaly. EXTREMITIES: There is no calf tenderness. There is no clubbing, no cyanosis. She does have some nonpitting edema, and her dorsalis pedis pulses are palpable. NEUROLOGIC: Grossly nonfocal with her muscle strength being 5/5 in both her upper and lower extremities. SKIN AND INTEGUMENT: No skin changes. No rash. LABORATORY DATA: CBC: White blood cell count is 8.4, hemoglobin is 13.4, hematocrit is 42.5, and platelet count is 226. Sodium is 136, potassium is 5.0, chloride is 104, CO2 is 21, BUN of 18, creatinine is 0.83, glucose is 89, and troponin is less than 0.010. IMAGING STUDIES: She had an EKG, which was atrial fibrillation, the rate was 107, without any ST or T-wave changes. On her chest x-ray, it is poorly penetrated. There is evidence for cardiomegaly, and maybe some mild pulmonary vascular congestion. ASSESSMENT: This is a pleasant 53-year-old female, who presents to the hospital with chest pain and rapid heart rate. The chest pain could be related both to the atrial fibrillation as well as an elevated blood pressures. Her blood pressure had been relatively sustained, elevated in her ER visit. Atrial fibrillation with the rapid ventricular response is likely due to the lack of digoxin. 1. For chest pain, I suspect this is due to hypertensive urgency as well as the atrial fibrillation. Therefore, we will manage her blood pressure. Start her back on her home medications and p.r.n. medicines as needed. 2. Atrial fibrillation with rapid ventricular response. She was given a bolus of Cardizem in the ER and started on a Cardizem drip. Currently, she is off the Cardizem drip, and her heart rate has improved. We will go ahead and give her a loading dose of digoxin and start her on digoxin p.o., and we will also consult case management to see what can be done with regard to helping her obtain her medications. We will also check thyroid function to see if there is any other cause or possible cause of her uncontrolled heart rate. 3. History of pulmonary embolism. We will continue Xarelto and obstructive sleep apnea. We will continue her BiPAP at bedtime. Job ID: [id number]
[2019-02-08] MEDS: Lurasidone HCl 40 MG TABLET PO SCH (10:06)
[2019-02-08 11:41] LABS: Digoxin Less than 0.15 ng/mL (0.8-2.0)
[2019-02-08 11:56] LABS: Free T4 (Free Thyroxine) 0.86 ng/dL (0.70-1.48); Thyroid Stimulating Hormone 2.5792 uIU/mL (0.35-4.94)
[2019-02-08] MEDS ORDERED: Digoxin 0.5 MG/2 ML AMP SLOW IVP SCH (12:45)
[2019-02-08] MEDS ORDERED: Digoxin 0.125 MG TAB PO SCH ×3 (13:00→18:30)
[2019-02-08] MEDS: Rivaroxaban 10 MG TAB PO SCH (15:48)
[2019-02-08] MEDS: Atorvastatin Calcium 40 MG TAB PO SCH (20:22)
[2019-02-08] MEDS: Montelukast Sodium 10 mg Tablet PO SCH (20:22)
[2019-02-08] MEDS: Melatonin 3 MG TAB PO PRN (20:22)
[2019-02-08] MEDS: Loratadine 10 MG TAB PO SCH (20:23)
[2019-02-08] MEDS ORDERED: Cetirizine HCl 10 MG TAB PO SCH (21:00)
[2019-02-08] MEDS ORDERED: FLU VACC QS2019-20(6MOS UP)/PF 60 MCG/0.5 ML SYRINGE IM ONE (21:00)
[2019-02-09 05:38] LABS: #Eosinphils 0.2 thou/uL (0.0-0.7); #Lymphocytes 1.8 thou/uL (1.20-3.40); #Monocytes 0.7 thou/uL (0.11-0.59); #Neutrophils 4.2 thou/uL (1.40-6.50); %Basophils 0.2 % (0.0-1.0); %Eosinophils 2.7 % (0.0-10.0); %Lymphocytes 25.8 % (21.0-51.0); %Monocytes 10.3 % (0.0-10.0); %Neutrophils 61.1 % (42.0-75.0); Hemoglobin 12.1 g/dL (12.0-16.0); Mean Corpuscular HGB CONC 32.5 g/dL (32.0-36.0); Mean Corpuscular Hemoglobin 28.2 pg (27.0-31.0); Mean Corpuscular Volume 86.7 fL (78.0-98.0); Mean Platelet Volume 7.8 fL (7.4-10.4); Platelet Count 217 thou/uL (130-400); RBC Distribution Width 14.4 % (11.5-14.5); White Blood Cell (WBC) Count 6.9 thou/uL (4.8-10.8)
[2019-02-09 05:58] LABS: Anion Gap 14 mmol/L (10-20); BUN (Urea Nitrogen) 13 mg/dL (9.8-20.1); Calc. Creatinine Clearance 275 mL/min (70-130); Calcium 9.5 mg/dL (7.8-10.44); Carbon Dioxide 22 mmol/L (22-29); Chloride 104 mmol/L (98-107); Estimated GFR-MDRD 87; Glucose 100 mg/dL (70-105); Potassium 3.9 mmol/L (3.5-5.1); Sodium 136 mmol/L (136-145)
[2019-02-09] MEDS: Carvedilol 6.25 MG TAB PO SCH ×2 (08:41→22:13)
[2019-02-09] MEDS: Gabapentin 400 MG CAP PO SCH ×3 (08:41→22:13)
[2019-02-09] MEDS: Digoxin 0.125 MG TAB PO SCH (08:41)
[2019-02-09] MEDS: Cyanocobalamin (Vitamin B-12) 1,000 MCG TAB PO SCH (08:42)
[2019-02-09] MEDS: OXcarbazepine 300 MG TAB PO SCH ×2 (08:47→22:14)
[2019-02-09] MEDS: Lurasidone HCl 40 MG TABLET PO SCH (13:16)
--- NOTE | 2019-02-09 13:54 | PDOC.HOSPP ---
- Subjective Encounter Date: 02/09/19 Encounter Time: 13:53 Subjective: Ms. Spencer was seen today in follow-up of AFIB. She does not have any new complaints. - Objective Vital Signs & Weight: Vital Signs (12 hours) Temp Pulse Resp BP Pulse Ox 02/09/19 12:00 98.2 F 91 18 146/89 H 92 L 02/09/19 08:41 68 02/09/19 07:25 96.8 F L 68 20 167/97 H 95 02/09/19 03:34 98.3 F 84 16 144/86 H 97 02/09/19 02:21 96 Weight Weight 417 lb 4.8 oz I&O: 02/08/19 02/09/19 02/10/19 06:59 06:59 06:59 Intake Total 0 1680 Output Total 0 1900 Balance 0 -220 Result Diagrams: 02/09/19 05:19 02/09/19 05:19 Hospitalist ROS - Medication Medications: Active Medications Generic Name Dose Route Start Last Admin Trade Name Freq PRN Reason Stop Dose Admin Acetaminophen 650 mg 02/08/19 08:18 02/08/19 20:20 Tylenol PO 650 mg Q4H PRN Administration Headache/Fever/Mild Pain (1-3) Atorvastatin Calcium 40 mg 02/08/19 21:00 02/08/19 20:22 Lipitor PO 40 mg HS SKYLER Administration Carvedilol 12.5 mg 02/08/19 09:00 02/09/19 08:41 Coreg PO 12.5 mg BID SKYLER Administration Cyanocobalamin 1,000 mcg 02/08/19 09:00 02/09/19 08:42 Vitamin B-12 PO 1,000 mcg DAILY SKYLER Administration Digoxin 0.125 mg 02/09/19 09:00 02/09/19 08:41 Lanoxin PO 0.125 mg DAILY SKYLER Administration Gabapentin 400 mg 02/08/19 09:00 02/09/19 08:41 Neurontin PO 400 mg TID SKYLER Administration Loratadine 10 mg 02/08/19 21:00 02/08/19 20:23 Claritin PO 10 mg HS SKYLER Administration Melatonin 9 mg 02/08/19 16:03 02/08/19 20:22 Melatonin PO 9 mg HSPRN PRN Administration Insomnia Montelukast Sodium 10 mg 02/08/19 21:00 02/08/19 20:22 Singulair PO 10 mg HS SKYLER Administration Ondansetron HCl 4 mg 02/08/19 08:18 02/08/19 20:24 Zofran IVP 4 mg Q6H PRN Administration Nausea/Vomiting Oxcarbazepine 600 mg 02/08/19 09:00 02/09/19 08:47 Trileptal PO 600 mg BID SKYLER Administration Rivaroxaban 20 mg 02/08/19 17:00 02/08/19 15:48 Xarelto PO 20 mg 1700 SKYLER Administration Sodium Chloride 10 ml 02/08/19 09:00 02/09/19 08:42 Flush - Normal Saline IVF 10 ml Q12HR SKYLER Administration - Exam Eye: PERRL, anicteric sclera Heart: no murmur, no gallops, no rubs, irregular Respiratory: CTAB, no wheezes, no rales, no ronchi, normal chest expansion, no tachypnea, normal percussion Gastrointestinal: soft, non-tender, non-distended, normal bowel sounds, no palpable masses, no hepatomegaly, no splenomegaly, no bruit Extremities: no cyanosis, no clubbing, no edema Hosp A/P (1) Atrial fibrillation with rapid ventricular response Code(s): I48.91 - UNSPECIFIED ATRIAL FIBRILLATION Status: Acute (2) Obstructive sleep apnea Code(s): G47.33 - OBSTRUCTIVE SLEEP APNEA (ADULT) (PEDIATRIC) Status: Acute (3) HTN (hypertension) Code(s): I10 - ESSENTIAL (PRIMARY) HYPERTENSION Status: Chronic Qualifiers: - Plan * Atrial Fibrillation- her heart rate is stable, now that she is back on Digoxin * HTN- blood pressure is controlled * LILO- stable * I spoke with our [employer] Business Analyst, and she researched the prices of Digoxin, and was able to find it at [employer] for $9.00 with the [email or web address] card. I gave this information to the patient and she tell me that she is unable to afford this as well, and she can't find anyone to loan her the money. I will speak with our telephonic case manager once again. Otherwise she is medical stable for discharge.
[2019-02-09] MEDS: Rivaroxaban 10 MG TAB PO SCH (16:20)
[2019-02-09] MEDS ORDERED: Digoxin 0.125 MG TAB PO SCH (17:00)
[2019-02-09] MEDS ORDERED: Lurasidone HCl 40 MG TABLET PO SCH (21:00)
[2019-02-09] MEDS: Atorvastatin Calcium 40 MG TAB PO SCH (22:13)
[2019-02-09] MEDS: Loratadine 10 MG TAB PO SCH (22:14)
[2019-02-09] MEDS: Melatonin 3 MG TAB PO PRN (22:15)
[2019-02-09] MEDS: Montelukast Sodium 10 mg Tablet PO SCH (22:15)
[2019-02-10] MEDS: Digoxin 0.125 MG TAB PO SCH (09:13)
[2019-02-10] MEDS: Carvedilol 6.25 MG TAB PO SCH (09:13)
[2019-02-10] MEDS: Gabapentin 400 MG CAP PO SCH (09:13)
[2019-02-10] MEDS: OXcarbazepine 300 MG TAB PO SCH (09:14)
[2019-02-10] MEDS: Cyanocobalamin (Vitamin B-12) 1,000 MCG TAB PO SCH (09:14)
[2019-02-10 12:31] VITALS: BP 143/86; TEMP 98.3
--- NOTE | 2019-02-10 15:23 | PDOC.HOSPP ---
- Subjective Encounter Date: 02/10/19 Encounter Time: 15:19 Subjective: Ms. Spencer was seen today in follow-up of AFIB with [facility]. She does not have any new complaints. - Objective Vital Signs & Weight: Vital Signs (12 hours) Temp Pulse Resp BP BP Pulse Ox 02/10/19 12:00 98.3 F 86 18 143/86 H 96 02/10/19 09:13 89 169/111 H 02/10/19 08:00 98.9 F 89 18 169/111 H 94 L 02/10/19 04:00 98.2 F 85 18 134/80 95 Weight Weight 417 lb 4.8 oz I&O: 02/09/19 02/10/19 02/11/19 06:59 06:59 06:59 Intake Total 1680 1440 720 Output Total 1900 650 Balance -220 790 720 Result Diagrams: 02/09/19 05:19 02/09/19 05:19 Hospitalist ROS - Medication Medications: Active Medications Generic Name Dose Route Start Last Admin Trade Name Freq PRN Reason Stop Dose Admin Acetaminophen 650 mg 02/08/19 08:18 02/08/19 20:20 Tylenol PO 650 mg Q4H PRN Administration Headache/Fever/Mild Pain (1-3) Atorvastatin Calcium 40 mg 02/08/19 21:00 02/09/19 22:13 Lipitor PO 40 mg HS SKYLER Administration Carvedilol 12.5 mg 02/08/19 09:00 02/10/19 09:13 Coreg PO 12.5 mg BID SKYLER Administration Cyanocobalamin 1,000 mcg 02/08/19 09:00 02/10/19 09:14 Vitamin B-12 PO 1,000 mcg DAILY SKYLER Administration Digoxin 0.125 mg 02/09/19 09:00 02/10/19 09:13 Lanoxin PO 0.125 mg DAILY SKYLER Administration Gabapentin 400 mg 02/08/19 09:00 02/10/19 09:13 Neurontin PO 400 mg TID SKYLER Administration Loratadine 10 mg 02/08/19 21:00 02/09/19 22:14 Claritin PO 10 mg HS SKYLER Administration Lurasidone HCl 20 mg 02/09/19 21:00 02/09/19 22:14 Latuda PO 20 mg HS SKYLER Administration Melatonin 9 mg 02/08/19 16:03 02/09/19 22:15 Melatonin PO 9 mg HSPRN PRN Administration Insomnia Montelukast Sodium 10 mg 02/08/19 21:00 02/09/19 22:15 Singulair PO 10 mg HS SKYLER Administration Ondansetron HCl 4 mg 02/08/19 08:18 02/08/19 20:24 Zofran IVP 4 mg Q6H PRN Administration Nausea/Vomiting Oxcarbazepine 600 mg 02/08/19 09:00 02/10/19 09:14 Trileptal PO 600 mg BID SKYLER Administration Rivaroxaban 20 mg 02/08/19 17:00 02/09/19 16:20 Xarelto PO 20 mg 1700 SKYLER Administration Sodium Chloride 10 ml 02/08/19 09:00 02/10/19 09:20 Flush - Normal Saline IVF 10 ml Q12HR SKYLER Administration - Exam Eye: PERRL, anicteric sclera Heart: irregular Respiratory: CTAB, no wheezes, no rales, no ronchi, normal chest expansion Gastrointestinal: soft, non-tender, non-distended, normal bowel sounds, no palpable masses, no hepatomegaly, no splenomegaly Extremities: 1+ LE edema Hosp A/P (1) Atrial fibrillation with rapid ventricular response Code(s): I48.91 - UNSPECIFIED ATRIAL FIBRILLATION Status: Acute (2) Obstructive sleep apnea Code(s): G47.33 - OBSTRUCTIVE SLEEP APNEA (ADULT) (PEDIATRIC) Status: Acute (3) HTN (hypertension) Code(s): I10 - ESSENTIAL (PRIMARY) HYPERTENSION Status: Chronic Qualifiers: - Plan * Atrial Fibrillation- her heart rate is stable, now that she is back on Digoxin * She has informed the staff that [facility] now has the [employer] * HTN- blood pressure is controlled * LILO- stable * She is stable for discharge home
--- NOTE | 2019-02-11 17:04 | EKG ---
Test Reason : Blood Pressure : / mmHG Vent. Rate : 107 BPM Atrial Rate : 150 BPM P-R Int : 000 ms QRS Dur : 092 ms QT Int : 342 ms P-R-T Axes : 000 006 -88 degrees QTc Int : 456 ms Atrial fibrillation with rapid ventricular response Abnormal ECG No change from 12/11/2018 Confirmed by ROMEL MONTAGUE DO ([id number]), newspaper photo editor CRISSY NASCIMENTO ([id number]) on 02/11/2019 5:04:31 PM Referred By: Confirmed By:ROMEL MONTAGUE DO
== END 2019-02-10 17:52 | disposition home or self-care (01) | DRG 309 ==
LOC: ERS 22:00 → 2NO 02-08 03:32
PROVIDERS: ADMIT Hospitalist; ATTEND Hospitalist
PROC: 3E02340 Introduction of Influenza Vaccine into Muscle, Percutaneous Approach (ICD-10-PCS; principal; 2019-02-08)
PROC: 5A09357 Assistance with Respiratory Ventilation, Less than 24 Consecutive Hours, Continuous Positive Airway Pressure (ICD-10-PCS; 2019-02-08)
DX: I48.91 Unspecified atrial fibrillation (principal); Z68.44 Body mass index [BMI] 60.0-69.9, adult; I16.0 Hypertensive urgency; E66.01 Morbid (severe) obesity due to excess calories; I50.9 Heart failure, unspecified; E78.00 Pure hypercholesterolemia, unspecified; J45.909 Unspecified asthma, uncomplicated; I11.0 Hypertensive heart disease with heart failure; F41.9 Anxiety disorder, unspecified; F31.9 Bipolar disorder, unspecified; G47.33 Obstructive sleep apnea (adult) (pediatric); Z88.8 Allergy status to other drugs, medicaments and biological substances; Z98.51 Tubal ligation status; Z91.14 Patient's other noncompliance with medication regimen; Z79.899 Other long term (current) drug therapy; Z79.01 Long term (current) use of anticoagulants; Z86.711 Personal history of pulmonary embolism; Z23 Encounter for immunization
CPT/HCPCS: 36415; 71045; 71275; 80048; 80053; 80162; 83880; 84439; 84443; 84484; 85025; 93005; 94760; 96365; 96376; J2405; J3490; Q9966

== ENCOUNTER 2019-03-01 19:25 | Emergency (ER) | payer OTHER ==
--- NOTE | 2019-03-01 20:04 | RAD ---
Exam: Chest one view HISTORY:Nausea. Diarrhea. Chest pain. Comparison: 02/07/2019 FINDINGS: Cardiac silhouette:Persistent cardiomegaly. Aorta: Unremarkable Pulmonary vessels: Normal Costophrenic angles: Clear LUNGS: No masses or consolidation. Pneumothorax: None Osseous abnormalities: None IMPRESSION: Cardiomegaly. No evidence of congestive heart failure.
[2019-03-01 20:18] LABS: #Basophils 0.1 thou/uL (0.0-0.2); #Eosinphils 0.2 thou/uL (0.0-0.7); #Lymphocytes 2.1 thou/uL (1.20-3.40); #Monocytes 0.9 thou/uL (0.11-0.59); #Neutrophils 5.5 thou/uL (1.40-6.50); %Basophils 0.7 % (0.0-1.0); %Eosinophils 2.5 % (0.0-10.0); %Lymphocytes 23.9 % (21.0-51.0); %Neutrophils 62.9 % (42.0-75.0); Hemoglobin 13.2 g/dL (12.0-16.0); Mean Corpuscular Hemoglobin 27.9 pg (27.0-31.0); Mean Corpuscular Volume 87.2 fL (78.0-98.0); Mean Platelet Volume 8.4 fL (7.4-10.4); Platelet Count 250 thou/uL (130-400); RBC Distribution Width 14.5 % (11.5-14.5); Red Blood Cell (RBC) Count 4.75 mill/uL (4.20-5.40); White Blood Cell (WBC) Count 8.8 thou/uL (4.8-10.8)
[2019-03-01] MEDS ORDERED: Ondansetron PF 4 MG/2 ML Vial ONE (20:32)
[2019-03-01] MEDS ORDERED: Metoprolol Tartrate 5 MG/5 ML VIAL ONE (20:37)
[2019-03-01 21:38] LABS: Albumin 3.9 g/dL (3.5-5.0)
[2019-03-01 21:39] LABS: Chloride 104 mmol/L (98-107); Potassium 4.2 mmol/L (3.5-5.1); Sodium 139 mmol/L (136-145)
[2019-03-01 21:40] LABS: Calcium 9.7 mg/dL (7.8-10.44)
[2019-03-01 21:41] LABS: Globulin 3.7 g/dL (2.4-3.5); Glucose 96 mg/dL (70-105); Protein, Total 7.6 g/dL (6.0-8.3)
[2019-03-01 21:42] LABS: Anion Gap 10 mmol/L (10-20); Carbon Dioxide 29 mmol/L (22-29)
[2019-03-01 21:43] LABS: Bilirubin, Total 0.7 mg/dL (0.2-1.2)
[2019-03-01 21:44] LABS: Alkaline Phosphatase 110 U/L (40-110); Calc. Creatinine Clearance 0 mL/min (70-130); Estimated GFR-MDRD 75
[2019-03-01 21:45] LABS: BUN (Urea Nitrogen) 13 mg/dL (9.8-20.1)
[2019-03-01 21:46] LABS: AST (SGOT) 17 U/L (5-34)
[2019-03-01 21:47] LABS: ALT (SGPT) 16 U/L (8-55); CK (CPK) 39 U/L (29-168); Lipase 10 U/L (8-78)
[2019-03-01] MEDS ORDERED: Morphine 4 MG/ML VIAL ONE (23:30)
[2019-03-01] MEDS ORDERED: Promethazine HCl 25 MG/ML VIAL ONE (23:31)
== END 2019-03-02 01:03 | disposition home or self-care (01) ==
LOC: ERS 19:25
DX: R07.9 Chest pain, unspecified (principal); R11.0 Nausea; I10 Essential (primary) hypertension; J45.909 Unspecified asthma, uncomplicated; E78.00 Pure hypercholesterolemia, unspecified; E66.9 Obesity, unspecified; I50.9 Heart failure, unspecified; I48.91 Unspecified atrial fibrillation; F41.9 Anxiety disorder, unspecified; F31.9 Bipolar disorder, unspecified; F43.10 Post-traumatic stress disorder, unspecified; Z79.891 Long term (current) use of opiate analgesic; Z79.01 Long term (current) use of anticoagulants; Z79.899 Other long term (current) drug therapy
CPT/HCPCS: 36415; 71045; 80053; 82550; 83690; 84484; 85025; 93005; 94760; 96365; 96366; 96375; J2270; J2405; J2550

== ENCOUNTER 2019-07-24 13:42 | Emergency (ER) | payer OTHER ==
[2019-07-24 14:42] LABS: #Eosinphils 0.2 thou/uL (0.0-0.7); #Lymphocytes 1.6 thou/uL (1.20-3.40); #Monocytes 0.7 thou/uL (0.11-0.59); #Neutrophils 4.8 thou/uL (1.40-6.50); %Basophils 0.5 % (0.0-1.0); %Eosinophils 2.7 % (0.0-10.0); %Lymphocytes 22.5 % (21.0-51.0); %Neutrophils 65.3 % (42.0-75.0); Hemoglobin 12.6 g/dL (12.0-16.0); Mean Corpuscular HGB CONC 32.2 g/dL (32.0-36.0); Mean Corpuscular Hemoglobin 27.9 pg (27.0-31.0); Mean Corpuscular Volume 86.6 fL (78.0-98.0); Mean Platelet Volume 7.6 fL (7.4-10.4); Platelet Count 233 thou/uL (130-400); RBC Distribution Width 14.5 % (11.5-14.5); Red Blood Cell (RBC) Count 4.51 mill/uL (4.20-5.40); White Blood Cell (WBC) Count 7.3 thou/uL (4.8-10.8)
[2019-07-24 15:07] LABS: ALT (SGPT) 18 U/L (8-55); AST (SGOT) 21 U/L (5-34); Alkaline Phosphatase 108 U/L (40-110); Anion Gap 16 mmol/L (10-20); BUN (Urea Nitrogen) 15 mg/dL (9.8-20.1); Bilirubin, Total 0.7 mg/dL (0.2-1.2); Calc. Creatinine Clearance 0 mL/min (70-130); Calcium 9.3 mg/dL (7.8-10.44); Carbon Dioxide 23 mmol/L (22-29); Chloride 105 mmol/L (98-107); Estimated GFR-MDRD 88; Globulin 3.7 g/dL (2.4-3.5); Glucose 97 mg/dL (70-105); Protein, Total 7.7 g/dL (6.0-8.3); Sodium 140 mmol/L (136-145)
--- NOTE | 2019-07-24 15:11 | RAD ---
PORTABLE CHEST 1 VIEW: Date: 07/24/2019 Time: 1455 hours HISTORY: Shortness of breath. FINDINGS: Comparison made with exam of 03/01/2019. The heart is enlarged. The lungs are well expanded without lobar consolidation, pneumothoraces, kofi pulmonary edema, or pleural effusions. IMPRESSION: No acute process. POS: [facility]
[2019-07-24] MEDS ORDERED: Furosemide 40 MG/4 ML VIAL ONE (15:18)
[2019-07-24] MEDS ORDERED: Nitroglycerin 2% Ointment 1 INCH/1 GM Packet ONE (15:18)
[2019-07-24 16:39] LABS: Troponin I Less than 0.010 ng/mL (< 0.028)
[2019-07-24] MEDS ORDERED: cloNIDine 0.1 MG TAB ONE (17:11)
--- NOTE | 2019-07-26 14:58 | EKG ---
Test Reason : Blood Pressure : / mmHG Vent. Rate : 073 BPM Atrial Rate : 250 BPM P-R Int : 000 ms QRS Dur : 094 ms QT Int : 398 ms P-R-T Axes : 000 004 -55 degrees QTc Int : 438 ms Atrial fibrillation Anterior infarct , age undetermined Abnormal ECG Confirmed by MICHELE SANTOS, MELINDA ([id number]), supervising editor news reel CRISSY NASCIMENTO ([id number]) on 07/26/2019 2:58:25 PM Referred By: Confirmed By:MELINDA BAUTISTA MD
== END 2019-07-24 17:15 | disposition home or self-care (01) ==
LOC: ERS 13:42
DX: I11.0 Hypertensive heart disease with heart failure (principal); I50.9 Heart failure, unspecified; J45.909 Unspecified asthma, uncomplicated; E66.9 Obesity, unspecified; E78.00 Pure hypercholesterolemia, unspecified; F31.9 Bipolar disorder, unspecified; F41.9 Anxiety disorder, unspecified; F90.9 Attention-deficit hyperactivity disorder, unspecified type; I48.91 Unspecified atrial fibrillation; Z79.899 Other long term (current) drug therapy
CPT/HCPCS: 36415; 71045; 80053; 83880; 84484; 85025; 93005; 96374; J1940

== ENCOUNTER 2021-04-11 19:19 | Emergency (ER) | payer OTHER | END 2021-04-11 21:50 | disposition home or self-care (01) | LOC: ERS 19:19 | DX: M79.604 Pain in right leg (principal); I11.0 Hypertensive heart disease with heart failure; I50.9 Heart failure, unspecified; I48.91 Unspecified atrial fibrillation; J45.909 Unspecified asthma, uncomplicated; E78.5 Hyperlipidemia, unspecified; E66.01 Morbid (severe) obesity due to excess calories; Z79.01 Long term (current) use of anticoagulants; Z79.899 Other long term (current) drug therapy ==

== ENCOUNTER 2021-08-25 14:29 | Inpatient (IN) | payer OTHER ==
[2021-08-25 14:45] LABS: Actual Bicarbonate (HCO3v) 31 mEq/L (22-28); Analyzer IN Cardio ER; Base Excess 3.2 mEq/L (-2.0 to +3.0); Calcium, Ionized (venous) 1.17 mmol/L (1.16-1.32); Chloride (VBG) 99 mmol/L (98-106); Potassium (VBG) 4.47 mmol/L (3.70-5.30); Sodium 139.9 mmol/L (133-146)
[2021-08-25] MEDS ORDERED: Cefepime 2 GM VIAL ONE (14:45)
[2021-08-25 15:12] LABS: #Eosinphils 0.3 thou/uL (0.0-0.7); #Lymphocytes 0.9 thou/uL (1.20-3.40); #Monocytes 0.9 thou/uL (0.11-0.59); #Neutrophils 14.2 thou/uL (1.40-6.50); %Basophils 0.2 % (0.0-1.0); %Lymphocytes 5.3 % (21.0-51.0); %Monocytes 5.7 % (0.0-10.0); %Neutrophils 86.8 % (42.0-75.0); Hemoglobin 12.3 g/dL (12.0-16.0); Mean Corpuscular HGB CONC 30.3 g/dL (32.0-36.0); Mean Corpuscular Hemoglobin 27.3 pg (27.0-31.0); Mean Corpuscular Volume 89.8 fL (78.0-98.0); Mean Platelet Volume 7.2 fL (7.4-10.4); Platelet Count 297 thou/uL (130-400); RBC Distribution Width 16.3 % (11.5-14.5); White Blood Cell (WBC) Count 16.3 thou/uL (4.8-10.8)
[2021-08-25 15:37] LABS: ALT (SGPT) 21 U/L (8-55); AST (SGOT) 26 U/L (5-34); Alkaline Phosphatase 137 U/L (40-110); Anion Gap 12 mmol/L (10-20); BUN (Urea Nitrogen) 16 mg/dL (9.8-20.1); Bilirubin, Total 0.6 mg/dL (0.2-1.2); Calc. Creatinine Clearance 0 mL/min (70-130); Calcium 9.3 mg/dL (7.8-10.44); Carbon Dioxide 30 mmol/L (22-29); Chloride 99 mmol/L (98-107); Globulin 4.9 g/dL (2.4-3.5); Glucose 168 mg/dL (70-105); Potassium 4.3 mmol/L (3.5-5.1); Protein, Total 8.9 g/dL (6.0-8.3); Sodium 137 mmol/L (136-145)
[2021-08-25] MEDS ORDERED: Ibuprofen 200 MG TAB ONE (16:13)
[2021-08-25 16:18] LABS: SARS-CoV-2 NAA Rapid Test Not Detected (NotDetected)
[2021-08-25] MEDS ORDERED: Ondansetron PF 4 MG/2 ML Vial IVP PRN (16:59)
[2021-08-25] MEDS ORDERED: Acetaminophen 325 MG TAB PO PRN (16:59)
[2021-08-25] MEDS ORDERED: Senokot S 8.6-50 MG TAB PO PRN (16:59)
[2021-08-25] MEDS ORDERED: Bisacodyl 5 MG TAB PO PRN (16:59)
[2021-08-25] MEDS ORDERED: Heparin 10,000 UNITS/ 10 ML VIAL SLOW IVP SCH (17:15)
[2021-08-25] MEDS ORDERED: Heparin 25,000 units/D5W 500 ML IVPB SCH (17:15)
[2021-08-25] MEDS ORDERED: Diltiazem 125 MG in Sodium Chloride 0.9% 100 ML IVPB SCH (17:15)
[2021-08-25] MEDS ORDERED: Levalbuterol HCl 1.25 MG/0.5 ML NEB NEB SCH (17:45)
[2021-08-25 18:01] LABS: Hemoglobin 12.2 g/dL (12.0-16.0); Platelet Count 322 thou/uL (130-400)
[2021-08-25 18:10] LABS: INR-International Normal Ratio 1.6; PTT 35.3 sec (22.9-36.1); Prothrombin Time 18.9 sec (12.0-14.7)
[2021-08-25 18:22] LABS: Troponin I Less than 0.010 ng/mL (< 0.028)
[2021-08-25 18:50] VITALS: BMI 71.6
[2021-08-25] MEDS: methylPREDNISolone Sod Succ/PF 125 MG/2 ML VIAL IVP SCH (19:45)
[2021-08-25] MEDS ORDERED: Cefepime 2 GM in Sodium Chloride 0.9% 100 ML IVPB SCH (20:00)
[2021-08-25] MEDS: Famotidine 20 MG TAB PO SCH ×2 (20:27→20:32)
[2021-08-25] MEDS: Famotidine/PF 20 mg/2ml Vial SLOW IVP SCH (20:28)
[2021-08-25 21:13] LABS: Troponin I Less than 0.010 ng/mL (< 0.028)
[2021-08-25] MEDS: Cefepime 2 GM in Sodium Chloride 0.9% 100 ML IVPB SCH (22:09)
[2021-08-25] MEDS: Levalbuterol HCl 1.25 MG/0.5 ML NEB NEB SCH (22:27)
[2021-08-25 22:58] LABS: Bacteria/HPF None Seen HPF (None Seen); Bilirubin Negative (Negative); Blood, Urine 1+ (Negative); Clarity Clear (Clear); Glucose, Urine (Dipstick) Normal (Negative); Ketone, Urine Negative (Negative); Leukocyte Negative Leu/uL (Negative); Nitrite Negative (Negative); Protein, Urine (Dipstick) 70 mg/dL (Neg-Trace); RBC/HPF 0-3 HPF (0-3); Specific Gravity, Urine 1.034 (1.002-1.036); WBC/HPF 0-3 HPF (0-3)
[2021-08-25 23:00] LABS: Urine Culture Reflex No No
[2021-08-25 23:09] LABS: Legionella Urinary Ag Negative (Negative)
[2021-08-25 23:10] LABS: Strep pneumo Urine Ag NEGATIVE (NEGATIVE)
[2021-08-26] MEDS: methylPREDNISolone Sod Succ/PF 125 MG/2 ML VIAL IVP SCH ×2 (00:40→06:29)
[2021-08-26 04:05] LABS: Hemoglobin 10.4 g/dL (12.0-16.0); Mean Corpuscular HGB CONC 30.2 g/dL (32.0-36.0); Mean Corpuscular Volume 89.7 fL (78.0-98.0); Mean Platelet Volume 7.5 fL (7.4-10.4); Platelet Count 236 thou/uL (130-400); RBC Distribution Width 16.5 % (11.5-14.5); Red Blood Cell (RBC) Count 3.83 mill/uL (4.20-5.40); White Blood Cell (WBC) Count 22.1 thou/uL (4.8-10.8)
[2021-08-26 04:22] LABS: Hemoglobin A1c 5.9 % (4.0-6.0)
[2021-08-26 04:25] LABS: Anion Gap 14 mmol/L (10-20); BUN (Urea Nitrogen) 17 mg/dL (9.8-20.1); Calc. Creatinine Clearance 247 mL/min (70-130); Calcium 9.1 mg/dL (7.8-10.44); Carbon Dioxide 24 mmol/L (22-29); Cardiac Risk 2.6 (Less than 4.5); Chloride 101 mmol/L (98-107); Cholesterol 98 mg/dl (< 200 Desired); Glucose 206 mg/dL (70-105); HDL Cholesterol 38 mg/dL (>60 Neg Risk); LDL Cholesterol, Calculated 47 mg/dL; Magnesium 1.8 mg/dL (1.6-2.6); Phosphorus 2.8 mg/dL (2.3-4.7); Potassium 4.3 mmol/L (3.5-5.1); Sodium 135 mmol/L (136-145); Triglycerides 63 mg/dL (Less than 150)
[2021-08-26 05:21] LABS: Band 39 % (5-11); Lymphocytes 3 % (21-51); MDiff Complete? YES; Metamyelocyte 1 % (0-0); Monocytes 3 % (0-10); Neutrophil 54 % (42-75)
[2021-08-26] MEDS: Cefepime 2 GM in Sodium Chloride 0.9% 100 ML IVPB SCH ×3 (06:30→21:17)
[2021-08-26] MEDS: Levalbuterol HCl 1.25 MG/0.5 ML NEB NEB SCH ×3 (07:34→22:30)
[2021-08-26] MEDS: Famotidine 20 MG TAB PO SCH ×3 (08:32→21:09)
[2021-08-26] MEDS ORDERED: Magnesium 2 GM/50 ML(in water) 2 GM in Premix Bag 1 BAG IVPB SCH (09:15)
[2021-08-26 09:29] LABS: Actual Bicarbonate (HCO3v) 30 mEq/L (22-28); Base Excess 3.3 mEq/L (-2.0 to +3.0); Calcium, Ionized (venous) 1.17 mmol/L (1.16-1.32); Chloride (VBG) 101 mmol/L (98-106); Hemoglobin (Hb) 11.6 g/dL (11.7-16.0); Potassium (VBG) 4.35 mmol/L (3.70-5.30); Sodium 137.4 mmol/L (133-146); pH (venous) 7.36 (7.32-7.43)
[2021-08-26] MEDS: Venlafaxine HCl XR 75 MG CAP PO SCH (09:57)
[2021-08-26] MEDS: Digoxin 0.125 MG TAB PO SCH (09:57)
[2021-08-26] MEDS: Venlafaxine HCl XR 150 MG CAP PO SCH (09:57)
[2021-08-26] MEDS: Gabapentin 400 MG CAP PO SCH ×2 (09:57→21:08)
[2021-08-26] MEDS: Sulfameth/Trimethoprim DS 800-160mg TAB PO SCH ×2 (09:58→21:09)
[2021-08-26] MEDS: Furosemide 40 MG/4 ML VIAL SLOW IVP SCH (09:58)
[2021-08-26] MEDS: Lisinopril 10 MG TAB PO SCH (09:58)
[2021-08-26] MEDS ORDERED: OXcarbazepine 300 MG TAB PO SCH (10:00)
[2021-08-26] MEDS ORDERED: OXcarbazepine 150 MG TAB PO SCH (10:00)
[2021-08-26] MEDS ORDERED: Carvedilol 25 MG TAB PO SCH (10:30)
[2021-08-26] MEDS: Famotidine/PF 20 mg/2ml Vial SLOW IVP SCH ×2 (10:40→21:10)
[2021-08-26] MEDS ORDERED: Pharmacy to Dose : CEFEPIME IVPB PRN (12:57)
[2021-08-26] MEDS: Carvedilol 25 MG TAB PO SCH (17:43)
[2021-08-26] MEDS: Rivaroxaban 10 MG TAB PO SCH (17:43)
[2021-08-26] MEDS: OXcarbazepine 300 MG TAB PO SCH (21:07)
[2021-08-26] MEDS: OXcarbazepine 150 MG TAB PO SCH (21:08)
[2021-08-26] MEDS: Montelukast Sodium 10 mg Tablet PO SCH (21:09)
[2021-08-26] MEDS: Loratadine 10 MG TAB PO SCH (21:09)
[2021-08-26] MEDS: Mirtazapine 15 MG TAB PO SCH (21:09)
[2021-08-26] MEDS: Atorvastatin Calcium 40 MG TAB PO SCH (21:10)
[2021-08-26] MEDS: methylPREDNISolone Sod Succ 40 MG VIAL IVP SCH (21:24)
[2021-08-27 04:54] LABS: #Eosinphils 0.1 thou/uL (0.0-0.7); #Monocytes 1.1 thou/uL (0.11-0.59); #Neutrophils 16.5 thou/uL (1.40-6.50); %Basophils 0.1 % (0.0-1.0); %Eosinophils 0.3 % (0.0-10.0); %Lymphocytes 5.1 % (21.0-51.0); %Neutrophils 88.4 % (42.0-75.0); Hemoglobin 10.7 g/dL (12.0-16.0); Mean Corpuscular HGB CONC 30.7 g/dL (32.0-36.0); Mean Corpuscular Hemoglobin 27.9 pg (27.0-31.0); Mean Platelet Volume 7.5 fL (7.4-10.4); Platelet Count 263 thou/uL (130-400); RBC Distribution Width 16.4 % (11.5-14.5); Red Blood Cell (RBC) Count 3.85 mill/uL (4.20-5.40); White Blood Cell (WBC) Count 18.7 thou/uL (4.8-10.8)
[2021-08-27] MEDS: Cefepime 2 GM in Sodium Chloride 0.9% 100 ML IVPB SCH ×2 (05:02→15:14)
[2021-08-27 05:23] LABS: Anion Gap 12 mmol/L (10-20); BUN (Urea Nitrogen) 19 mg/dL (9.8-20.1); Calc. Creatinine Clearance 272 mL/min (70-130); Calcium 9.6 mg/dL (7.8-10.44); Carbon Dioxide 29 mmol/L (22-29); Chloride 102 mmol/L (98-107); Glucose 153 mg/dL (70-105); Magnesium 2.2 mg/dL (1.6-2.6); Phosphorus 3.4 mg/dL (2.3-4.7); Potassium 4.7 mmol/L (3.5-5.1); Sodium 138 mmol/L (136-145)
[2021-08-27] MEDS: Sodium Chloride For Inhalation 0.9% 3 ML NEB NEB PRN (07:11)
[2021-08-27] MEDS: Levalbuterol HCl 1.25 MG/0.5 ML NEB NEB SCH ×3 (07:11→23:44)
[2021-08-27] MEDS: Gabapentin 400 MG CAP PO SCH ×2 (10:14→22:17)
[2021-08-27] MEDS: Digoxin 0.125 MG TAB PO SCH (10:14)
[2021-08-27] MEDS: Lisinopril 10 MG TAB PO SCH (10:15)
[2021-08-27] MEDS: OXcarbazepine 150 MG TAB PO SCH ×2 (10:16→22:18)
[2021-08-27] MEDS: Venlafaxine HCl XR 75 MG CAP PO SCH (10:16)
[2021-08-27] MEDS: OXcarbazepine 300 MG TAB PO SCH ×2 (10:17→22:15)
[2021-08-27] MEDS: Carvedilol 25 MG TAB PO SCH ×2 (10:18→17:26)
[2021-08-27] MEDS: Sulfameth/Trimethoprim DS 800-160mg TAB PO SCH (10:18)
[2021-08-27] MEDS: Venlafaxine HCl XR 150 MG CAP PO SCH (10:19)
[2021-08-27] MEDS: Famotidine 20 MG TAB PO SCH ×2 (10:19→22:18)
[2021-08-27] MEDS: Furosemide 40 MG/4 ML VIAL SLOW IVP SCH (10:20)
[2021-08-27] MEDS: Famotidine/PF 20 mg/2ml Vial SLOW IVP SCH ×2 (10:20→22:19)
[2021-08-27] MEDS: methylPREDNISolone Sod Succ 40 MG VIAL IVP SCH ×2 (10:20→22:19)
[2021-08-27] MEDS: Rivaroxaban 10 MG TAB PO SCH (17:26)
[2021-08-27] MEDS: Mirtazapine 15 MG TAB PO SCH (22:16)
[2021-08-27] MEDS: Montelukast Sodium 10 mg Tablet PO SCH (22:17)
[2021-08-27] MEDS: Loratadine 10 MG TAB PO SCH (22:17)
[2021-08-27] MEDS: Atorvastatin Calcium 40 MG TAB PO SCH (22:17)
[2021-08-27] MEDS: Piperacillin/Tazobactam 3.375 GM in Sodium Chloride 0.9% 100 ML IVPB SCH (22:18)
[2021-08-28 05:02] LABS: #Eosinphils 0.1 thou/uL (0.0-0.7); #Lymphocytes 1.2 thou/uL (1.20-3.40); #Monocytes 0.9 thou/uL (0.11-0.59); #Neutrophils 15.2 thou/uL (1.40-6.50); %Basophils 0.1 % (0.0-1.0); %Eosinophils 0.4 % (0.0-10.0); %Lymphocytes 6.7 % (21.0-51.0); %Neutrophils 87.9 % (42.0-75.0); Hemoglobin 10.3 g/dL (12.0-16.0); Mean Corpuscular Volume 90.6 fL (78.0-98.0); Mean Platelet Volume 7.4 fL (7.4-10.4); Platelet Count 260 thou/uL (130-400); RBC Distribution Width 16.3 % (11.5-14.5); Red Blood Cell (RBC) Count 3.68 mill/uL (4.20-5.40); White Blood Cell (WBC) Count 17.3 thou/uL (4.8-10.8)
[2021-08-28] MEDS: Piperacillin/Tazobactam 3.375 GM in Sodium Chloride 0.9% 100 ML IVPB SCH ×3 (05:15→21:53)
[2021-08-28 05:26] LABS: Anion Gap 10 mmol/L (10-20); BUN (Urea Nitrogen) 24 mg/dL (9.8-20.1); Calc. Creatinine Clearance 288 mL/min (70-130); Calcium 9.4 mg/dL (7.8-10.44); Carbon Dioxide 32 mmol/L (22-29); Chloride 101 mmol/L (98-107); Glucose 138 mg/dL (70-105); Magnesium 2.2 mg/dL (1.6-2.6); Phosphorus 3.1 mg/dL (2.3-4.7); Potassium 4.6 mmol/L (3.5-5.1); Sodium 138 mmol/L (136-145)
[2021-08-28] MEDS: hydrALAZINE 20 MG/ML VIAL SLOW IVP PRN (05:57)
[2021-08-28] MEDS: Levalbuterol HCl 1.25 MG/0.5 ML NEB NEB SCH ×3 (07:24→23:47)
[2021-08-28] MEDS: methylPREDNISolone Sod Succ 40 MG VIAL IVP SCH ×2 (09:25→21:53)
[2021-08-28] MEDS: Furosemide 40 MG/4 ML VIAL SLOW IVP SCH (09:25)
[2021-08-28] MEDS: OXcarbazepine 300 MG TAB PO SCH ×2 (09:25→21:52)
[2021-08-28] MEDS: Lisinopril 10 MG TAB PO SCH (09:25)
[2021-08-28] MEDS: Gabapentin 400 MG CAP PO SCH ×2 (09:25→21:51)
[2021-08-28] MEDS: Digoxin 0.125 MG TAB PO SCH (09:26)
[2021-08-28] MEDS: Carvedilol 25 MG TAB PO SCH ×2 (09:26→18:23)
[2021-08-28] MEDS: Venlafaxine HCl XR 150 MG CAP PO SCH (09:26)
[2021-08-28] MEDS: Famotidine 20 MG TAB PO SCH ×2 (09:26→21:52)
[2021-08-28] MEDS: Famotidine/PF 20 mg/2ml Vial SLOW IVP SCH ×2 (09:26→21:54)
[2021-08-28] MEDS: OXcarbazepine 150 MG TAB PO SCH ×2 (09:26→21:52)
[2021-08-28] MEDS: Venlafaxine HCl XR 75 MG CAP PO SCH (09:26)
[2021-08-28] MEDS ORDERED: guaiFENesin ER 600 MG TAB PO SCH (10:00)
[2021-08-28] MEDS: Aquaphor 3.5 oz (99 G) JAR TOP SCH (15:08)
[2021-08-28] MEDS: Rivaroxaban 10 MG TAB PO SCH (18:23)
[2021-08-28] MEDS: Loratadine 10 MG TAB PO SCH (21:51)
[2021-08-28] MEDS: Mirtazapine 15 MG TAB PO SCH (21:52)
[2021-08-28] MEDS: Atorvastatin Calcium 40 MG TAB PO SCH (21:52)
[2021-08-28] MEDS: Montelukast Sodium 10 mg Tablet PO SCH (21:53)
[2021-08-28] MEDS: guaiFENesin ER 600 MG TAB PO SCH (21:53)
[2021-08-29] MEDS: hydrALAZINE 20 MG/ML VIAL SLOW IVP PRN (04:27)
[2021-08-29 04:31] LABS: #Lymphocytes 1.4 thou/uL (1.20-3.40); #Monocytes 0.8 thou/uL (0.11-0.59); #Neutrophils 11.9 thou/uL (1.40-6.50); %Basophils 0.2 % (0.0-1.0); %Eosinophils 0.3 % (0.0-10.0); %Lymphocytes 9.9 % (21.0-51.0); %Monocytes 5.9 % (0.0-10.0); %Neutrophils 83.7 % (42.0-75.0); Hemoglobin 11.1 g/dL (12.0-16.0); Mean Corpuscular HGB CONC 30.9 g/dL (32.0-36.0); Mean Corpuscular Hemoglobin 28.1 pg (27.0-31.0); Mean Corpuscular Volume 90.9 fL (78.0-98.0); Mean Platelet Volume 7.2 fL (7.4-10.4); Platelet Count 279 thou/uL (130-400); RBC Distribution Width 16.2 % (11.5-14.5); Red Blood Cell (RBC) Count 3.94 mill/uL (4.20-5.40); White Blood Cell (WBC) Count 14.2 thou/uL (4.8-10.8)
[2021-08-29 05:01] LABS: Anion Gap 13 mmol/L (10-20); BUN (Urea Nitrogen) 31 mg/dL (9.8-20.1); Calc. Creatinine Clearance 271 mL/min (70-130); Calcium 9.6 mg/dL (7.8-10.44); Carbon Dioxide 32 mmol/L (22-29); Chloride 100 mmol/L (98-107); Glucose 177 mg/dL (70-105); Magnesium 2.2 mg/dL (1.6-2.6); Phosphorus 3.3 mg/dL (2.3-4.7); Potassium 4.5 mmol/L (3.5-5.1); Sodium 140 mmol/L (136-145)
[2021-08-29] MEDS: Piperacillin/Tazobactam 3.375 GM in Sodium Chloride 0.9% 100 ML IVPB SCH (05:14)
[2021-08-29] MEDS: Levalbuterol HCl 1.25 MG/0.5 ML NEB NEB SCH ×3 (07:02→23:10)
[2021-08-29] MEDS ORDERED: Ciprofloxacin 500 MG TAB PO SCH (09:30)
[2021-08-29] MEDS ORDERED: Furosemide 40 MG TAB PO SCH ×2 (09:45→14:30)
[2021-08-29] MEDS: Venlafaxine HCl XR 75 MG CAP PO SCH (12:17)
[2021-08-29] MEDS: Lisinopril 10 MG TAB PO SCH (12:17)
[2021-08-29] MEDS: Gabapentin 400 MG CAP PO SCH ×2 (12:19→20:44)
[2021-08-29] MEDS: Aquaphor 3.5 oz (99 G) JAR TOP SCH (12:20)
[2021-08-29] MEDS: Digoxin 0.125 MG TAB PO SCH (12:20)
[2021-08-29] MEDS: Famotidine 20 MG TAB PO SCH ×3 (12:20→20:46)
[2021-08-29] MEDS: Venlafaxine HCl XR 150 MG CAP PO SCH (12:21)
[2021-08-29] MEDS: OXcarbazepine 150 MG TAB PO SCH ×2 (12:21→20:53)
[2021-08-29] MEDS: guaiFENesin ER 600 MG TAB PO SCH ×2 (12:23→20:43)
[2021-08-29] MEDS: OXcarbazepine 300 MG TAB PO SCH ×2 (12:23→20:58)
[2021-08-29] MEDS: Famotidine/PF 20 mg/2ml Vial SLOW IVP SCH ×3 (12:23→20:54)
[2021-08-29] MEDS: methylPREDNISolone Sod Succ 40 MG VIAL IVP SCH (12:24)
[2021-08-29] MEDS: Carvedilol 25 MG TAB PO SCH ×2 (12:47→17:28)
[2021-08-29] MEDS: Rivaroxaban 10 MG TAB PO SCH (17:27)
[2021-08-29] MEDS: Ciprofloxacin 500 MG TAB PO SCH (19:03)
[2021-08-29] MEDS: Montelukast Sodium 10 mg Tablet PO SCH (20:43)
[2021-08-29] MEDS: Loratadine 10 MG TAB PO SCH (20:43)
[2021-08-29] MEDS: Atorvastatin Calcium 40 MG TAB PO SCH (20:45)
[2021-08-29] MEDS: Mirtazapine 15 MG TAB PO SCH (20:53)
[2021-08-30] MEDS: Ciprofloxacin 500 MG TAB PO SCH ×2 (05:06→20:22)
[2021-08-30 06:50] LABS: #Basophils 0.1 thou/uL (0.0-0.2); #Eosinphils 0.3 thou/uL (0.0-0.7); #Lymphocytes 2.6 thou/uL (1.20-3.40); #Monocytes 1.1 thou/uL (0.11-0.59); #Neutrophils 7.2 thou/uL (1.40-6.50); %Basophils 0.5 % (0.0-1.0); %Eosinophils 2.4 % (0.0-10.0); %Lymphocytes 23.4 % (21.0-51.0); %Monocytes 9.7 % (0.0-10.0); Hemoglobin 10.9 g/dL (12.0-16.0); Mean Corpuscular HGB CONC 30.7 g/dL (32.0-36.0); Mean Corpuscular Hemoglobin 27.7 pg (27.0-31.0); Mean Corpuscular Volume 90.3 fL (78.0-98.0); Platelet Count 306 thou/uL (130-400); RBC Distribution Width 16.1 % (11.5-14.5); Red Blood Cell (RBC) Count 3.92 mill/uL (4.20-5.40); White Blood Cell (WBC) Count 11.2 thou/uL (4.8-10.8)
[2021-08-30] MEDS: Levalbuterol HCl 1.25 MG/0.5 ML NEB NEB SCH ×3 (06:53→22:40)
[2021-08-30 07:17] LABS: Anion Gap 12 mmol/L (10-20); BUN (Urea Nitrogen) 30 mg/dL (9.8-20.1); Calc. Creatinine Clearance 302 mL/min (70-130); Calcium 9.3 mg/dL (7.8-10.44); Carbon Dioxide 37 mmol/L (22-29); Chloride 96 mmol/L (98-107); Glucose 106 mg/dL (70-105); Magnesium 2.1 mg/dL (1.6-2.6); Phosphorus 4.4 mg/dL (2.3-4.7); Potassium 4.1 mmol/L (3.5-5.1); Sodium 141 mmol/L (136-145)
[2021-08-30] MEDS: OXcarbazepine 300 MG TAB PO SCH ×2 (08:34→20:22)
[2021-08-30] MEDS: Carvedilol 25 MG TAB PO SCH ×2 (08:34→17:24)
[2021-08-30] MEDS: Venlafaxine HCl XR 75 MG CAP PO SCH (08:34)
[2021-08-30] MEDS: Digoxin 0.125 MG TAB PO SCH (08:35)
[2021-08-30] MEDS: Gabapentin 400 MG CAP PO SCH ×2 (08:35→20:21)
[2021-08-30] MEDS: Venlafaxine HCl XR 150 MG CAP PO SCH (08:35)
[2021-08-30] MEDS: Lisinopril 10 MG TAB PO SCH (08:35)
[2021-08-30] MEDS: guaiFENesin ER 600 MG TAB PO SCH ×2 (08:36→20:22)
[2021-08-30] MEDS: Aquaphor 3.5 oz (99 G) JAR TOP SCH (08:36)
[2021-08-30] MEDS: Furosemide 20 MG TAB PO SCH (08:36)
[2021-08-30] MEDS: methylPREDNISolone Sod Succ 40 MG VIAL IVP SCH (08:36)
[2021-08-30] MEDS: Famotidine 20 MG TAB PO SCH (08:37)
[2021-08-30] MEDS: Famotidine/PF 20 mg/2ml Vial SLOW IVP SCH (08:37)
[2021-08-30] MEDS: hydrALAZINE 20 MG/ML VIAL SLOW IVP PRN (08:39)
[2021-08-30] MEDS: OXcarbazepine 150 MG TAB PO SCH ×2 (08:39→20:21)
[2021-08-30] MEDS: Rivaroxaban 10 MG TAB PO SCH (17:24)
[2021-08-30] MEDS: Atorvastatin Calcium 40 MG TAB PO SCH (20:21)
[2021-08-30] MEDS: Mirtazapine 15 MG TAB PO SCH (20:22)
[2021-08-30] MEDS: Loratadine 10 MG TAB PO SCH (20:22)
[2021-08-30] MEDS: Montelukast Sodium 10 mg Tablet PO SCH (20:23)
[2021-08-30] MEDS ORDERED: Famotidine 20 MG TAB PO SCH (21:00)
[2021-08-30] MEDS: Sodium Chloride For Inhalation 0.9% 3 ML NEB NEB PRN (22:44)
[2021-08-31] MEDS: Ciprofloxacin 500 MG TAB PO SCH ×2 (06:19→20:44)
[2021-08-31] MEDS: Levalbuterol HCl 1.25 MG/0.5 ML NEB NEB SCH ×3 (06:57→23:54)
[2021-08-31 07:47] LABS: Anion Gap 13 mmol/L (10-20); BUN (Urea Nitrogen) 29 mg/dL (9.8-20.1); Calc. Creatinine Clearance 292 mL/min (70-130); Calcium 9.4 mg/dL (7.8-10.44); Carbon Dioxide 33 mmol/L (22-29); Chloride 98 mmol/L (98-107); Glucose 104 mg/dL (70-105); Hemoglobin 11.5 g/dL (12.0-16.0); Mean Corpuscular HGB CONC 30.8 g/dL (32.0-36.0); Mean Corpuscular Hemoglobin 27.9 pg (27.0-31.0); Mean Corpuscular Volume 90.5 fL (78.0-98.0); Mean Platelet Volume 7.2 fL (7.4-10.4); Platelet Count 308 thou/uL (130-400); RBC Distribution Width 16.1 % (11.5-14.5); Red Blood Cell (RBC) Count 4.12 mill/uL (4.20-5.40); Sodium 140 mmol/L (136-145); White Blood Cell (WBC) Count 15.8 thou/uL (4.8-10.8)
[2021-08-31 08:17] LABS: Band 2 % (5-11); Eosinophils 5 % (0-10); Lymphocytes 32 % (21-51); MDiff Complete? YES; Metamyelocyte 1 % (0-0); Monocytes 10 % (0-10); Myelocyte 1 % (0-0); Neutrophil 49 % (42-75); Platelet Morphology Comment Appears Adequate; Polychromasia SLIGHT = 2-3 cells (100X) (0-2/hpf)
[2021-08-31] MEDS: methylPREDNISolone Sod Succ 40 MG VIAL IVP SCH (09:14)
[2021-08-31] MEDS: guaiFENesin ER 600 MG TAB PO SCH ×2 (09:14→20:44)
[2021-08-31] MEDS: Saccharomyces boulardii 250 MG CAP PO SCH (09:14)
[2021-08-31] MEDS: Lisinopril 10 MG TAB PO SCH (09:14)
[2021-08-31] MEDS: Venlafaxine HCl XR 150 MG CAP PO SCH (09:15)
[2021-08-31] MEDS: OXcarbazepine 300 MG TAB PO SCH ×2 (09:15→20:43)
[2021-08-31] MEDS: Venlafaxine HCl XR 75 MG CAP PO SCH (09:16)
[2021-08-31] MEDS: Gabapentin 400 MG CAP PO SCH ×2 (09:16→20:44)
[2021-08-31] MEDS: Carvedilol 25 MG TAB PO SCH ×2 (09:16→17:11)
[2021-08-31] MEDS: Furosemide 20 MG TAB PO SCH (09:17)
[2021-08-31] MEDS: Digoxin 0.125 MG TAB PO SCH (09:17)
[2021-08-31] MEDS: Aquaphor 3.5 oz (99 G) JAR TOP SCH (09:17)
[2021-08-31] MEDS: OXcarbazepine 150 MG TAB PO SCH ×2 (09:25→20:44)
[2021-08-31] MEDS: Rivaroxaban 10 MG TAB PO SCH (17:11)
[2021-08-31] MEDS: hydrALAZINE 20 MG/ML VIAL SLOW IVP PRN (20:43)
[2021-08-31] MEDS: Montelukast Sodium 10 mg Tablet PO SCH (20:44)
[2021-08-31] MEDS: Loratadine 10 MG TAB PO SCH (20:44)
[2021-08-31] MEDS: Atorvastatin Calcium 40 MG TAB PO SCH (20:44)
[2021-08-31] MEDS: Mirtazapine 15 MG TAB PO SCH (20:44)
[2021-08-31 21:51] LABS: SARS-CoV-2 PCR by NAA Not Detected (NotDetected)
[2021-08-31] MEDS: Sodium Chloride For Inhalation 0.9% 3 ML NEB NEB PRN (23:55)
[2021-09-01] MEDS: Ciprofloxacin 500 MG TAB PO SCH ×2 (05:51→20:31)
[2021-09-01 06:38] LABS: Hemoglobin 11.5 g/dL (12.0-16.0); Mean Corpuscular HGB CONC 30.9 g/dL (32.0-36.0); Mean Corpuscular Hemoglobin 27.6 pg (27.0-31.0); Mean Corpuscular Volume 89.4 fL (78.0-98.0); Mean Platelet Volume 6.9 fL (7.4-10.4); Platelet Count 351 thou/uL (130-400); RBC Distribution Width 16.1 % (11.5-14.5); Red Blood Cell (RBC) Count 4.17 mill/uL (4.20-5.40); White Blood Cell (WBC) Count 17.1 thou/uL (4.8-10.8)
[2021-09-01 06:49] LABS: Anion Gap 12 mmol/L (10-20); BUN (Urea Nitrogen) 27 mg/dL (9.8-20.1); Calc. Creatinine Clearance 271 mL/min (70-130); Calcium 9.3 mg/dL (7.8-10.44); Carbon Dioxide 37 mmol/L (22-29); Chloride 96 mmol/L (98-107); Glucose 141 mg/dL (70-105); Potassium 3.7 mmol/L (3.5-5.1); Sodium 141 mmol/L (136-145)
[2021-09-01 07:25] LABS: Band 1 % (5-11); Eosinophils 5 % (0-10); Lymphocytes 26 % (21-51); MDiff Complete? YES; Monocytes 5 % (0-10); Myelocyte 2 % (0-0); Neutrophil 60 % (42-75); Platelet Morphology Comment Appears Adequate; Polychromasia SLIGHT = 2-3 cells (100X) (0-2/hpf); Reactive Lymphocytes 1 % (0-10)
[2021-09-01] MEDS: Venlafaxine HCl XR 75 MG CAP PO SCH (09:25)
[2021-09-01] MEDS: Carvedilol 25 MG TAB PO SCH ×2 (09:25→17:09)
[2021-09-01] MEDS: Lisinopril 10 MG TAB PO SCH (09:25)
[2021-09-01] MEDS: OXcarbazepine 300 MG TAB PO SCH ×2 (09:25→20:31)
[2021-09-01] MEDS: Gabapentin 400 MG CAP PO SCH ×2 (09:25→20:31)
[2021-09-01] MEDS: Saccharomyces boulardii 250 MG CAP PO SCH (09:25)
[2021-09-01] MEDS: Venlafaxine HCl XR 150 MG CAP PO SCH (09:28)
[2021-09-01] MEDS: predniSONE 20 MG TAB PO SCH ×2 (09:28→17:09)
[2021-09-01] MEDS: Furosemide 20 MG TAB PO SCH (09:28)
[2021-09-01] MEDS: Aquaphor 3.5 oz (99 G) JAR TOP SCH (09:28)
[2021-09-01] MEDS: Digoxin 0.125 MG TAB PO SCH (09:28)
[2021-09-01] MEDS: guaiFENesin ER 600 MG TAB PO SCH ×2 (09:28→20:30)
[2021-09-01] MEDS: OXcarbazepine 150 MG TAB PO SCH ×2 (09:29→20:31)
[2021-09-01] MEDS: Levalbuterol HCl 1.25 MG/0.5 ML NEB NEB SCH ×3 (10:19→23:25)
[2021-09-01] MEDS: Rivaroxaban 10 MG TAB PO SCH (17:10)
[2021-09-01] MEDS: Atorvastatin Calcium 40 MG TAB PO SCH (20:30)
[2021-09-01] MEDS: Mirtazapine 15 MG TAB PO SCH (20:30)
[2021-09-01] MEDS: Loratadine 10 MG TAB PO SCH (20:31)
[2021-09-01] MEDS: Montelukast Sodium 10 mg Tablet PO SCH (20:31)
[2021-09-02] MEDS: Ciprofloxacin 500 MG TAB PO SCH (04:38)
[2021-09-02 06:09] LABS: #Eosinphils 0.4 thou/uL (0.0-0.7); #Lymphocytes 2.9 thou/uL (1.20-3.40); #Neutrophils 9.1 thou/uL (1.40-6.50); %Basophils 0.4 % (0.0-1.0); %Lymphocytes 21.6 % (21.0-51.0); %Monocytes 7.1 % (0.0-10.0); %Neutrophils 67.9 % (42.0-75.0); Hemoglobin 11.9 g/dL (12.0-16.0); Mean Corpuscular HGB CONC 30.5 g/dL (32.0-36.0); Mean Corpuscular Hemoglobin 27.6 pg (27.0-31.0); Mean Corpuscular Volume 90.3 fL (78.0-98.0); Platelet Count 329 thou/uL (130-400); RBC Distribution Width 16.3 % (11.5-14.5); Red Blood Cell (RBC) Count 4.32 mill/uL (4.20-5.40); White Blood Cell (WBC) Count 13.4 thou/uL (4.8-10.8)
[2021-09-02 06:25] LABS: Anion Gap 9 mmol/L (10-20); BUN (Urea Nitrogen) 25 mg/dL (9.8-20.1); Calc. Creatinine Clearance 288 mL/min (70-130); Calcium 9.3 mg/dL (7.8-10.44); Carbon Dioxide 37 mmol/L (22-29); Chloride 97 mmol/L (98-107); Glucose 119 mg/dL (70-105); Magnesium 2.1 mg/dL (1.6-2.6); Potassium 3.9 mmol/L (3.5-5.1); Sodium 139 mmol/L (136-145)
[2021-09-02] MEDS: Levalbuterol HCl 1.25 MG/0.5 ML NEB NEB SCH ×2 (07:25→13:57)
[2021-09-02 08:10] VITALS: TEMP 97.4
[2021-09-02] MEDS: Gabapentin 400 MG CAP PO SCH (08:16)
[2021-09-02] MEDS: Saccharomyces boulardii 250 MG CAP PO SCH (08:17)
[2021-09-02] MEDS: OXcarbazepine 150 MG TAB PO SCH (08:17)
[2021-09-02] MEDS: Lisinopril 10 MG TAB PO SCH (08:17)
[2021-09-02] MEDS: OXcarbazepine 300 MG TAB PO SCH (08:17)
[2021-09-02] MEDS: Furosemide 20 MG TAB PO SCH (08:18)
[2021-09-02] MEDS: Venlafaxine HCl XR 75 MG CAP PO SCH (08:18)
[2021-09-02] MEDS: Carvedilol 25 MG TAB PO SCH ×2 (08:18→17:05)
[2021-09-02] MEDS: guaiFENesin ER 600 MG TAB PO SCH (08:18)
[2021-09-02] MEDS: predniSONE 20 MG TAB PO SCH ×2 (08:18→17:05)
[2021-09-02] MEDS: Digoxin 0.125 MG TAB PO SCH (08:18)
[2021-09-02] MEDS: Venlafaxine HCl XR 150 MG CAP PO SCH (08:18)
[2021-09-02] MEDS: Aquaphor 3.5 oz (99 G) JAR TOP SCH (08:18)
[2021-09-02 08:25] VITALS: BP 138/85
[2021-09-02] MEDS: Rivaroxaban 10 MG TAB PO SCH (17:05)
[2021-09-03] MEDS ORDERED: Aquaphor 10 GM TUBE TOP SCH (09:00)
== END 2021-09-02 19:20 | disposition home or self-care (01) | DRG 871 ==
LOC: ERS 14:29 → IMCU/EMU 16:58 → 2NO 08-26 18:36 → T4-A 08-29 15:57
PROVIDERS: ADMIT Internal Medicine; ATTEND Internal Medicine
PROC: 3E03329 Introduction of Other Anti-infective into Peripheral Vein, Percutaneous Approach (ICD-10-PCS; principal; 2021-08-25)
PROC: 5A09357 Assistance with Respiratory Ventilation, Less than 24 Consecutive Hours, Continuous Positive Airway Pressure (ICD-10-PCS; 2021-08-25)
DX: A41.52 Sepsis due to Pseudomonas (principal); Z20.822 Contact with and (suspected) exposure to COVID-19; J96.01 Acute respiratory failure with hypoxia; J96.02 Acute respiratory failure with hypercapnia; G93.41 Metabolic encephalopathy; J18.9 Pneumonia, unspecified organism; G92.8 Other toxic encephalopathy; Z68.45 Body mass index [BMI] 70 or greater, adult; J45.901 Unspecified asthma with (acute) exacerbation; L03.115 Cellulitis of right lower limb; E87.2 Acidosis; I48.11 Longstanding persistent atrial fibrillation; E66.2 Morbid (severe) obesity with alveolar hypoventilation; L60.0 Ingrowing nail; E83.42 Hypomagnesemia; F31.9 Bipolar disorder, unspecified; R65.20 Severe sepsis without septic shock; I87.2 Venous insufficiency (chronic) (peripheral); Z88.8 Allergy status to other drugs, medicaments and biological substances; Z88.1 Allergy status to other antibiotic agents; Z79.01 Long term (current) use of anticoagulants; Z79.899 Other long term (current) drug therapy; Z98.51 Tubal ligation status; Z98.890 Other specified postprocedural states; Z82.3 Family history of stroke; Z86.718 Personal history of other venous thrombosis and embolism; Z86.711 Personal history of pulmonary embolism; Z99.89 Dependence on other enabling machines and devices
CPT/HCPCS: 36415; 36416; 71045; 80048; 80053; 80061; 81001; 82805; 83036; 83605; 83735; 83880; 84100; 84145; 84443; 84484; 85025; 85610; 85730; 86850; 86900; 86901; 87040; 87077; 87081; 87149; 87186; 87449; 87899; 93005; 93306; 93970; 94640; 94660; 96365; 96366; J0360; J0692; J1644; J1940; J1956; J2543; J2920; J2930; J3370; J3475; J3490; J7030; J7512; J7612; S0028; U0003; U0005

== ENCOUNTER 2023-09-20 20:45 | Emergency (ER) | payer OTHER ==
[2023-09-20 22:35] LABS: #Basophils 0.03 10x3/uL (0.0-0.2); %Basophils 0.4 % (0.0-1.0); %Eosinophils 2.7 % (0.0-10.0); %Lymphocytes 18.2 % (21.0-51.0); %Neutrophils 69.3 % (42.0-75.0); Hematocrit 37.6 % (36.0-47.0); Hemoglobin 11.1 g/dL (12.0-16.0); Mean Corpuscular HGB CONC 29.5 g/dL (32.0-36.0); Mean Corpuscular Hemoglobin 25.3 pg (27.0-31.0); Mean Corpuscular Volume 85.8 fL (78.0-98.0); Mean Platelet Volume 9.4 fL (7.4-10.4); Platelet Count 290 10x3/uL (130-400); RBC Distribution Width 18.3 % (11.5-14.5); Red Blood Cell (RBC) Count 4.38 mill/uL (4.20-5.40)
[2023-09-20 22:54] LABS: ALT (SGPT) 11 U/L (8-55); AST (SGOT) 16 U/L (5-34); Albumin 3.3 g/dL (3.5-5.0); Alkaline Phosphatase 123 U/L (40-110); Anion Gap 12 mmol/L (10-20); BUN (Urea Nitrogen) 12 mg/dL (9.8-20.1); Bilirubin, Total 0.6 mg/dL (0.2-1.2); Calc. Creatinine Clearance 0 mL/min (70-130); Calcium 9.3 mg/dL (7.8-10.44); Carbon Dioxide 31 mmol/L (22-29); Chloride 101 mmol/L (98-107); Estimated GFR 75; Globulin 4.8 g/dL (2.4-3.5); Glucose 78 mg/dL (70-105); Potassium 3.5 mmol/L (3.5-5.1); Protein, Total 8.1 g/dL (6.0-8.3); Sodium 140 mmol/L (136-145)
[2023-09-20 22:58] LABS: Troponin I Less than 0.010 ng/mL (< 0.028)
== END 2023-09-21 00:18 | disposition home or self-care (01) ==
LOC: ERS 20:45
DX: S09.90XA Unspecified injury of head, initial encounter (principal); M79.641 Pain in right hand; R20.2 Paresthesia of skin; I10 Essential (primary) hypertension; J45.909 Unspecified asthma, uncomplicated; E78.00 Pure hypercholesterolemia, unspecified; I48.91 Unspecified atrial fibrillation; Z79.01 Long term (current) use of anticoagulants; Z79.899 Other long term (current) drug therapy
CPT/HCPCS: 36415; 70450; 70486; 71045; 80053; 84484; 85025; 93005

== ENCOUNTER 2023-11-21 21:01 | Emergency (ER) | payer OTHER ==
[2023-11-21 22:02] LABS: #Basophils Less than 0.03 10x3/uL (0.0-0.2); %Basophils 0.2 % (0.0-1.0); %Eosinophils 2.1 % (0.0-10.0); %Lymphocytes 20.1 % (21.0-51.0); %Monocytes 13.5 % (0.0-10.0); %Neutrophils 63.6 % (42.0-75.0); Hematocrit 34.6 % (36.0-47.0); Hemoglobin 10.8 g/dL (12.0-16.0); Mean Corpuscular HGB CONC 31.2 g/dL (32.0-36.0); Mean Corpuscular Hemoglobin 26.2 pg (27.0-31.0); Mean Corpuscular Volume 83.8 fL (78.0-98.0); Mean Platelet Volume 10.6 fL (7.4-10.4); Platelet Count 235 10x3/uL (130-400); Red Blood Cell (RBC) Count 4.13 mill/uL (4.20-5.40)
[2023-11-21] MEDS ORDERED: Ondansetron PF 4 MG/2 ML Vial ONE (22:15)
[2023-11-21] MEDS ORDERED: fentaNYL 50 mcg/mL 1 mL Vial ONE (22:21)
[2023-11-21] MEDS ORDERED: Clindamycin/D5W 900 MG in Premix 1 BAG IVPB SCH (22:30)
[2023-11-21 22:42] LABS: ALT (SGPT) 20 U/L (8-55); AST (SGOT) 26 U/L (5-34); Albumin 3.2 g/dL (3.5-5.0); Alkaline Phosphatase 90 U/L (40-110); Anion Gap 13 mmol/L (10-20); BUN (Urea Nitrogen) 17 mg/dL (9.8-20.1); Bilirubin, Total 0.6 mg/dL (0.2-1.2); Calc. Creatinine Clearance 0 mL/min (70-130); Calcium 9.2 mg/dL (7.8-10.44); Carbon Dioxide 26 mmol/L (22-29); Chloride 106 mmol/L (98-107); Estimated GFR 76; Globulin 4.1 g/dL (2.4-3.5); Glucose 86 mg/dL (70-105); Magnesium 2.3 mg/dL (1.6-2.6); Potassium 3.6 mmol/L (3.5-5.1); Protein, Total 7.3 g/dL (6.0-8.3); Sodium 141 mmol/L (136-145)
== END 2023-11-21 23:44 | disposition home or self-care (01) ==
LOC: ERS 21:01
DX: L03.115 Cellulitis of right lower limb (principal); I48.91 Unspecified atrial fibrillation; J45.909 Unspecified asthma, uncomplicated; I11.0 Hypertensive heart disease with heart failure; I50.9 Heart failure, unspecified; Z55.6 Problems related to health literacy
CPT/HCPCS: 36415; 80053; 83605; 83735; 85025; 87040; 96365; 96375; J2405; J3010; J3490

== ENCOUNTER 2025-01-06 21:22 | Inpatient (IN) | payer OTHER ==
[~2025-01-06 21:22] MED LIST changes: -ISOVUE-370 76%-LOCM 1 ML ONE; +Iopamidol-370 76% 500 ML MDV (1 ML CHARGE) ONE
[2025-01-06] MEDS ORDERED: LevoFLOXacin 750 mg/D5W 150 ml Premix Bag ONE (22:04)
[2025-01-06 22:24] LABS: Hematocrit 39.6 % (36.0-47.0); Hemoglobin 11.4 g/dL (12.0-16.0); INR-International Normal Ratio 2.1; Mean Corpuscular Hemoglobin 25.3 pg (27.0-31.0); Mean Corpuscular Volume 87.8 fL (78.0-98.0); Platelet Count 301 10x3/uL (130-400); Prothrombin Time 23.8 sec (12.0-14.7); Red Blood Cell (RBC) Count 4.51 mill/uL (4.20-5.40); White Blood Cell (WBC) Count 4.47 10x3/uL (4.8-10.8)
[2025-01-06 22:25] LABS: PTT 32.1 sec (22.9-36.1)
[2025-01-06 22:31] LABS: Digoxin 0.77 ng/mL (0.8-2.0)
[2025-01-06 22:32] LABS: ALT (SGPT) 21 U/L (Less than 34); AST (SGOT) 18 U/L (11-34); Albumin 3.4 g/dL (3.1-4.5); Alkaline Phosphatase 90 U/L (40-110); Anion Gap 21 mmol/L (10-20); BUN (Urea Nitrogen) 16 mg/dL (9.8-20.1); Bilirubin, Total 1.2 mg/dL (0.3-1.2); Calc. Creatinine Clearance 0 mL/min (70-130); Calcium 9.1 mg/dL (7.8-10.44); Carbon Dioxide 26 mmol/L (22-29); Chloride 102 mmol/L (98-107); Globulin 3.8 g/dL (2.4-3.5); Glucose 145 mg/dL (70-105); Magnesium 2.1 mg/dL (1.6-2.6); Potassium 3.8 mmol/L (3.5-5.1); Sodium 145 mmol/L (136-145)
[2025-01-06] MEDS ORDERED: Ondansetron PF 4 MG/2 ML Vial ONE ×2 (22:53→23:58)
[2025-01-06 23:13] LABS: Burr Cells SLIGHT = 2-5 cells HPF (0-1); Platelet Adequacy Comment Platelets Normal; Polychromasia SLIGHT = 2-3 cells HPF (0-2); Smudge Cells 5.4 %
[2025-01-06 23:44] LABS: Actual Bicarbonate (HCO3v) 23.0 mEq/L (22-28); Base Excess -4.0 mEq/L (-2.0 to +3.0); Calcium, Ionized (venous) 1.13 mmol/L (1.16-1.32); Chloride (VBG) 100 mmol/L (98-106); Hematocrit-VBG 38 % (36.0-47.0); Hemoglobin (Hb) 12.9 g/dL (11.7-16.0); Potassium (VBG) 3.69 mmol/L (3.70-5.30); Sodium 138 mmol/L (133-146)
[2025-01-07] MEDS ORDERED: Vancomycin (BATCH) 2.5 GM in Premix 1 BAG IVPB SCH (00:15)
[2025-01-07] MEDS ORDERED: dilTIAZem 25 MG/5 ML VIAL ONE (00:46)
[2025-01-07] MEDS ORDERED: Metoclopramide HCl 10 MG (2 mL) VIAL ONE (01:23)
[2025-01-07] MEDS ORDERED: Senokot S 8.6-50 MG TAB PO PRN (01:42)
[2025-01-07] MEDS ORDERED: Calcium Carbonate 500 MG ChewTAB PO PRN (01:42)
[2025-01-07] MEDS ORDERED: Ondansetron PF 4 MG/2 ML Vial IVP PRN (01:42)
[2025-01-07] MEDS ORDERED: Electrolyte Replacement Protocol 1 EACH FS SCH (01:45)
[2025-01-07] MEDS ORDERED: [UNRECOGNIZED DRUG - REMARK] IVPB PRN (02:17)
[2025-01-07 02:38] LABS: Bacteria/HPF 4+ HPF (None Seen); CAUTI Indications for Culture Acute Hematuria; Glucose, Urine (Dipstick) >=1000 mg/dL (Negative); Leukocyte 75 Leu/uL (Negative); Protein, Urine (Dipstick) 30 mg/dL (Neg-Trace); RBC/HPF Greater than 50 HPF (0-3); Specific Gravity, Urine 1.030 (1.002-1.036); WBC/HPF 21-50 HPF (0-3)
[2025-01-07 02:39] LABS: Urine Culture Reflex Yes Yes
[2025-01-07] MEDS: VANCOMYCIN 2 GRAM/400 ML Premix BAG IVPB SCH (02:56)
[2025-01-07] MEDS: Albumin 25% 25 GM (100 mL) BOT IVPB SCH (03:06)
[2025-01-07] MEDS: Digoxin 0.5 MG/2 ML AMP SLOW IVP SCH (03:13)
[2025-01-07] MEDS: Acetaminophen 325 MG TAB PO PRN (03:28)
[2025-01-07] MEDS: Furosemide 20 MG (2 mL) VIAL SLOW IVP SCH (04:04)
[2025-01-07 04:21] LABS: Sodium 139 mmol/L (136-145)
[2025-01-07 04:22] LABS: ALT (SGPT) 19 U/L (Less than 34); AST (SGOT) 23 U/L (11-34); Albumin 2.9 g/dL (3.1-4.5); Alkaline Phosphatase 69 U/L (40-110); Anion Gap 16 mmol/L (10-20); BUN (Urea Nitrogen) 16 mg/dL (9.8-20.1); Bilirubin, Total 1.2 mg/dL (0.3-1.2); Calc. Creatinine Clearance 0 mL/min (70-130); Calcium 8.5 mg/dL (7.8-10.44); Carbon Dioxide 24 mmol/L (22-29); Chloride 103 mmol/L (98-107); Globulin 3.9 g/dL (2.4-3.5); Glucose 136 mg/dL (70-105); Magnesium 2.0 mg/dL (1.6-2.6); Potassium 3.7 mmol/L (3.5-5.1)
[2025-01-07 04:25] LABS: Hematocrit 38.9 % (36.0-47.0); Hemoglobin 11.2 g/dL (12.0-16.0); Mean Corpuscular Hemoglobin 25.5 pg (27.0-31.0); Mean Corpuscular Volume 88.4 fL (78.0-98.0); Platelet Count 236 10x3/uL (130-400); Red Blood Cell (RBC) Count 4.40 mill/uL (4.20-5.40); White Blood Cell (WBC) Count 15.45 10x3/uL (4.8-10.8)
[2025-01-07 05:20] LABS: Other Cell Types 1.0; Platelet Adequacy Comment Platelets Normal; Polychromasia SLIGHT = 2-3 cells HPF (0-2); Smudge Cells 4.9 %
[2025-01-07 05:54] LABS: SARS-CoV-2 E Target Negative; SARS-CoV-2 N2 Target Negative; SARS-CoV-2 NAA Rapid Test Not Detected (NotDetected); SARS-CoV-2 RdRP gene Negative
[2025-01-07] MEDS ORDERED: VANC IVPB PRN (06:08)
[2025-01-07 06:44] LABS: Legionella Urinary Ag Negative (Negative); Strep pneumo Urine Ag NEGATIVE (NEGATIVE)
[2025-01-07 06:55] LABS: Vancomycin, Random 26.3 ug/mL (See Comment)
[2025-01-07] MEDS: Mupirocin 1 GM TUBE NASAL DECOLONIZATION NASAL SCH (08:02)
[2025-01-07] MEDS: Carvedilol 25 MG TAB PO SCH (08:02)
[2025-01-07] MEDS: Digoxin 0.125 MG TAB PO SCH (08:02)
[2025-01-07] MEDS: Pantoprazole 40 MG DR.TAB PO SCH (08:02)
[2025-01-07] MEDS: PNEUMOC 20-VAL CONJ-DIP CRM/PF 0.5 ML SYRINGE IM ONE (09:24)
[2025-01-07] MEDS: Magnesium 2 GM/50 ML(in water) 2 GM in Premix 1 BAG IVPB SCH (09:26)
[2025-01-07] MEDS: Vancomycin 1 GM in Premix 1 BAG IVPB SCH (11:58)
[2025-01-07] MEDS: Cefepime 2 GM VIAL ONE (19:14)
[2025-01-08 05:33] LABS: Hematocrit 33.4 % (36.0-47.0); Hemoglobin 9.7 g/dL (12.0-16.0); Mean Corpuscular Hemoglobin 25.5 pg (27.0-31.0); Mean Corpuscular Volume 87.9 fL (78.0-98.0); Platelet Count 223 10x3/uL (130-400); Red Blood Cell (RBC) Count 3.80 mill/uL (4.20-5.40); White Blood Cell (WBC) Count 24.46 10x3/uL (4.8-10.8)
[2025-01-08 05:57] LABS: Vancomycin, Random 20.4 ug/mL (See Comment)
[2025-01-08 06:00] LABS: ALT (SGPT) 18 U/L (Less than 34); AST (SGOT) 22 U/L (11-34); Albumin 2.8 g/dL (3.1-4.5); Alkaline Phosphatase 59 U/L (40-110); Anion Gap 15 mmol/L (10-20); BUN (Urea Nitrogen) 24 mg/dL (9.8-20.1); Bilirubin, Total 0.7 mg/dL (0.3-1.2); Calc. Creatinine Clearance 156 mL/min (70-130); Calcium 8.5 mg/dL (7.8-10.44); Carbon Dioxide 25 mmol/L (22-29); Chloride 103 mmol/L (98-107); Globulin 3.6 g/dL (2.4-3.5); Glucose 185 mg/dL (70-105); Magnesium 2.8 mg/dL (1.6-2.6); Potassium 4.4 mmol/L (3.5-5.1); Sodium 139 mmol/L (136-145)
[2025-01-08 06:09] LABS: Platelet Adequacy Comment Platelets Normal; Poikilocytosis SLIGHT = 6-15 cells HPF (0-5); Polychromasia SLIGHT = 2-3 cells HPF (0-2)
[2025-01-08] MEDS: Furosemide 40 MG (4 mL) VIAL SLOW IVP SCH ×2 (10:45→17:36)
[2025-01-08 16:34] VITALS: BMI 62.9
[2025-01-08] MEDS: lamoTRIgine 100 MG TAB PO SCH (22:33)
[2025-01-08] MEDS: Gabapentin 400 MG CAP PO SCH (22:33)
[2025-01-08] MEDS: QUEtiapine 25 MG TAB PO SCH (22:33)
[2025-01-08] MEDS ORDERED: Vancomycin 1 GM in Premix 1 BAG IVPB SCH (23:59)
[2025-01-09] MEDS: Vancomycin 1 GM in Sodium Chloride 0.9% 250 ML 250 ML IVPB SCH (00:01)
[2025-01-09 05:06] LABS: #Basophils 0.03 10x3/uL (0.0-0.2); #Eosinophils 0.03 10x3/uL (0.0-0.7); #Monocytes 1.19 10x3/uL (0.11-0.59); #Neutrophils 19.41 10x3/uL (1.40-6.50); %Basophils 0.1 % (0.0-1.0); %Eosinophils 0.1 % (0.0-10.0); %Lymphocytes 5.6 % (21.0-51.0); %Monocytes 5.4 % (0.0-10.0); %Neutrophils 88.0 % (42.0-75.0); Hematocrit 33.1 % (36.0-47.0); Hemoglobin 9.7 g/dL (12.0-16.0); Mean Corpuscular Hemoglobin 25.5 pg (27.0-31.0); Mean Corpuscular Volume 87.1 fL (78.0-98.0); Platelet Count 205 10x3/uL (130-400); Red Blood Cell (RBC) Count 3.80 mill/uL (4.20-5.40); White Blood Cell (WBC) Count 22.06 10x3/uL (4.8-10.8)
[2025-01-09 05:20] LABS: ALT (SGPT) 20 U/L (Less than 34); AST (SGOT) 21 U/L (11-34); Albumin 2.7 g/dL (3.1-4.5); Alkaline Phosphatase 58 U/L (40-110); Anion Gap 10 mmol/L (10-20); BUN (Urea Nitrogen) 28 mg/dL (9.8-20.1); Bilirubin, Total 0.5 mg/dL (0.3-1.2); Calc. Creatinine Clearance 223 mL/min (70-130); Calcium 8.6 mg/dL (7.8-10.44); Carbon Dioxide 29 mmol/L (22-29); Chloride 104 mmol/L (98-107); Globulin 3.8 g/dL (2.4-3.5); Glucose 179 mg/dL (70-105); Potassium 4.1 mmol/L (3.5-5.1); Sodium 139 mmol/L (136-145)
[2025-01-09 07:10] LABS: Vancomycin, Random 19.4 ug/mL (See Comment)
[2025-01-09] MEDS: Gabapentin 400 MG CAP PO SCH (09:20)
[2025-01-09] MEDS: Vancomycin 1.25 GM / NS 250 ML VIAL-2-BAG IVPB SCH (13:26)
[2025-01-09] MEDS: OXCARBAZEPINE 150 MG PO SCH (15:27)
[2025-01-09] MEDS: OXCARBAZEPINE 600 MG PO SCH (15:27)
[2025-01-09] MEDS ORDERED: Vancomycin 1.25 GM / NS 250 ML VIAL-2-BAG IVPB SCH (21:00)
[2025-01-09] MEDS: lamoTRIgine 100 MG TAB PO SCH (21:25)
[2025-01-09] MEDS: QUEtiapine 25 MG TAB PO SCH (21:27)
[2025-01-10 05:29] LABS: #Basophils 0.03 10x3/uL (0.0-0.2); #Eosinophils 0.07 10x3/uL (0.0-0.7); #Monocytes 0.84 10x3/uL (0.11-0.59); #Neutrophils 13.01 10x3/uL (1.40-6.50); %Basophils 0.2 % (0.0-1.0); %Eosinophils 0.4 % (0.0-10.0); %Lymphocytes 12.7 % (21.0-51.0); %Monocytes 5.2 % (0.0-10.0); %Neutrophils 80.6 % (42.0-75.0); Hematocrit 33.3 % (36.0-47.0); Hemoglobin 9.6 g/dL (12.0-16.0); Mean Corpuscular Hemoglobin 25.3 pg (27.0-31.0); Mean Corpuscular Volume 87.6 fL (78.0-98.0); Platelet Count 207 10x3/uL (130-400); Red Blood Cell (RBC) Count 3.80 mill/uL (4.20-5.40); White Blood Cell (WBC) Count 16.15 10x3/uL (4.8-10.8)
[2025-01-10 05:57] LABS: Platelet Adequacy Comment Platelets Normal; Polychromasia SLIGHT = 2-3 cells HPF (0-2)
[2025-01-10 06:23] LABS: ALT (SGPT) 20 U/L (Less than 34); AST (SGOT) 18 U/L (11-34); Albumin 2.8 g/dL (3.1-4.5); Alkaline Phosphatase 59 U/L (40-110); Anion Gap 9 mmol/L (10-20); BUN (Urea Nitrogen) 27 mg/dL (9.8-20.1); Bilirubin, Total 0.5 mg/dL (0.3-1.2); Calc. Creatinine Clearance 110 mL/min (70-130); Calcium 8.7 mg/dL (7.8-10.44); Carbon Dioxide 31 mmol/L (22-29); Chloride 103 mmol/L (98-107); Globulin 3.8 g/dL (2.4-3.5); Glucose 169 mg/dL (70-105); Potassium 4.0 mmol/L (3.5-5.1); Sodium 139 mmol/L (136-145)
[2025-01-12 04:39] VITALS: BMI 73.1
[2025-01-12 06:45] LABS: Anion Gap 9 mmol/L (10-20); BUN (Urea Nitrogen) 28 mg/dL (9.8-20.1); Calc. Creatinine Clearance 304 mL/min (70-130); Calcium 9.5 mg/dL (7.8-10.44); Carbon Dioxide 34 mmol/L (22-29); Chloride 99 mmol/L (98-107); Glucose 164 mg/dL (70-105); Potassium 3.8 mmol/L (3.5-5.1); Sodium 138 mmol/L (136-145)
[2025-01-12] MEDS ORDERED: predniSONE 20 MG TAB PO SCH (08:00)
[2025-01-12 11:19] VITALS: BP 165/73; TEMP 98.4
== END 2025-01-12 19:04 | disposition home or self-care (01) | DRG 871 ==
LOC: ERS 21:22 → IMCU/EMU 01-07 01:47 → SURG A 01-09 14:34
PROVIDERS: ADMIT Internal Medicine; ATTEND Internal Medicine
PROC: 5A09357 Assistance with Respiratory Ventilation, Less than 24 Consecutive Hours, Continuous Positive Airway Pressure (ICD-10-PCS; principal; 2025-01-07)
PROC: 3E03329 Introduction of Other Anti-infective into Peripheral Vein, Percutaneous Approach (ICD-10-PCS; 2025-01-07)
PROC: 30233J1 Transfusion of Nonautologous Serum Albumin into Peripheral Vein, Percutaneous Approach (ICD-10-PCS; 2025-01-07)
DX: A41.9 Sepsis, unspecified organism (principal); I50.31 Acute diastolic (congestive) heart failure; J96.21 Acute and chronic respiratory failure with hypoxia; E66.2 Morbid (severe) obesity with alveolar hypoventilation; J44.1 Chronic obstructive pulmonary disease with (acute) exacerbation; N17.9 Acute kidney failure, unspecified; I13.0 Hypertensive heart and chronic kidney disease with heart failure and stage 1 through stage 4 chronic kidney disease, or unspecified chronic kidney disease; E87.20 Acidosis, unspecified; N39.0 Urinary tract infection, site not specified; I48.20 Chronic atrial fibrillation, unspecified; Z68.45 Body mass index [BMI] 70 or greater, adult; R65.20 Severe sepsis without septic shock; K21.9 Gastro-esophageal reflux disease without esophagitis; E78.5 Hyperlipidemia, unspecified; Z86.718 Personal history of other venous thrombosis and embolism; Z86.711 Personal history of pulmonary embolism; Z88.8 Allergy status to other drugs, medicaments and biological substances; I27.20 Pulmonary hypertension, unspecified; J45.909 Unspecified asthma, uncomplicated; I89.0 Lymphedema, not elsewhere classified; N18.9 Chronic kidney disease, unspecified; F39 Unspecified mood [affective] disorder; D64.9 Anemia, unspecified; B95.4 Other streptococcus as the cause of diseases classified elsewhere; Z79.899 Other long term (current) drug therapy
CPT/HCPCS: 36415; 36416; 51702; 70450; 71045; 71275; 80048; 80053; 80162; 80202; 81001; 82805; 83605; 83735; 83880; 84145; 84484; 85025; 85610; 85730; 87040; 87077; 87081; 87086; 87149; 87449; 87899; 93005; 94640; 94660; 96365; 96366; 96368; 96375; 96376; 97139; J0692; J1160; J1940; J1956; J2405; J2765; J2919; J3010; J3373; J3375; J3475; J7050; J7512; J7614; J7626; P9047; Q9967; S0179; U0002